=== PATIENT | female | born 1965 | race American Indian/Alaskan Native ===

== ENCOUNTER 2018-04-09 18:04 | Emergency (ER) | payer SELFPAY ==
[2018-04-09 19:00] VITALS: BP 128/88
== END 2018-04-09 21:10 | disposition left against medical advice (07) ==
LOC: ED 18:04
DX: H92.03 Otalgia, bilateral (principal); Z53.21 Procedure and treatment not carried out due to patient leaving prior to being seen by health care provider

== ENCOUNTER 2018-06-10 16:51 | Emergency (ER) | payer SELFPAY ==
[2018-06-10 18:18] VITALS: BP 132/72
== END 2018-06-10 21:29 | disposition left against medical advice (07) ==
LOC: ED 16:51
DX: K08.89 Other specified disorders of teeth and supporting structures (principal); J02.9 Acute pharyngitis, unspecified; H92.02 Otalgia, left ear; Z87.891 Personal history of nicotine dependence; Z88.0 Allergy status to penicillin; Z88.2 Allergy status to sulfonamides; Z88.8 Allergy status to other drugs, medicaments and biological substances; Z53.21 Procedure and treatment not carried out due to patient leaving prior to being seen by health care provider

== ENCOUNTER 2020-12-08 21:43 | Emergency (ER) | payer OTHER ==
[2020-12-08] MEDS ORDERED: PROMETHAZINE 25 MG TAB PO ONE (22:58)
[2020-12-08] MEDS ORDERED: HYDROcodone/ACETAMINOPHEN 5-325 MG TAB PO ONE (22:58)
[2020-12-08] MEDS ORDERED: FAMOTIDINE 20 MG TAB PO ONE (22:58)
[2020-12-08 23:13] LABS: Basophils % (Auto) 0.9 % (0.0-1.8); Eosinophils # (Auto) 0.1 K/mm3 (0.0-0.4); Eosinophils % (Auto) 2.3 % (0.0-4.3); Hematocrit 35.2 % (30.3-42.9); Hemoglobin 11.9 gm/dl (10.1-14.3); Lymphocytes # (Auto) 1.9 K/mm3 (1.2-5.4); Lymphocytes % (Auto) 44.4 % (13.4-35.0); Mean Corpuscular HGB Conc 34 % (30-34); Mean Corpuscular Volume 89 fl (79-97); Monocytes # (Auto) 0.3 K/mm3 (0.0-0.8); Monocytes % (Auto) 7.2 % (0.0-7.3); Platelet Count 195 K/mm3 (140-440); Red Blood Count 3.94 M/mm3 (3.65-5.03); Red Cell Distribution Width 14.9 % (13.2-15.2)
[2020-12-08 23:25] LABS: Albumin 4.1 g/dL (3.9-5); Blood Urea Nitrogen 13 mg/dL (7-17); Calcium 9.3 mg/dL (8.4-10.2); Hemolysis Index 7
[2020-12-08 23:27] LABS: Alanine Aminotransferase < 5 units/L (7-56); BUN/Creatinine Ratio 19
[2020-12-08 23:37] LABS: INR 0.95 (0.87-1.13)
[2020-12-08 23:38] LABS: Partial Thromboplastin Time 29.2 Sec. (24.2-36.6)
--- NOTE | 2020-12-09 00:25 | Emergency Department Report ---
ED Abdominal Pain HPI - General Chief Complaint: GI Bleed Stated Complaint: BACK PAIN PUI?: No Time Seen by Provider: 12/08/20 22:29 Source: patient Mode of arrival: Ambulatory Limitations: No Limitations - History of Present Illness Initial Comments: CC: "I have pain and rectal bleeding." HPI: THis is a 55 yo female with hx of GI Bleed, anal fissure who presents with abdominal pain and rectal bleeding for several months. Pain is located in epigastric region and radiates to back. She has bright red blood per rectum with wiping. She has brown stool. Pain is sharp, intermittent. She has had pain for several years. She has been followed by colorectal surgeon Dr. Jasmine and GI specialist Dr. Epps for GI issues and GI bleeding. She does not have a definitive diagnosis. She exclaims, "None of my doctors agree." MD Complaint: abdominal pain -: Gradual, month(s) (Worse over the last month), year(s) (Present for several years) Location: epigastric Radiation: back Severity: severe Severity scale (0 -10): 10 Quality: sharp Consistency: intermittent Improves With: nothing Worsens With: nothing Associated Symptoms: other (Rectal bleeding) - Related Data Previous Rx's Medication Instructions Recorded Last Taken Type Albuterol Mdi (or & Nicu Only) 2 puff IH QID PRN #1 inhalation 08/31/18 Unknown Rx [ProAir HFA Inhaler] Azithromycin [Zithromax Z-KRISTEN] 250 mg PO DAILY #6 tablet 08/31/18 Unknown Rx guaiFENesin/CODEINE [Robitussin AC] 5 ml PO Q6HR PRN #60 oral.liqd 08/31/18 Unknown Rx predniSONE [Deltasone] 20 mg PO QDAY #5 tab 08/31/18 Unknown Rx Allergies Allergy/AdvReac Type Severity Reaction Status Date / Time ondansetron Allergy Unknown Verified 08/31/18 14:44 [From Zofran (as hydrochloride)] pantoprazole [From Protonix] Allergy Unknown Verified 08/31/18 14:44 Penicillins Allergy Unknown Verified 08/31/18 14:44 Sulfa (Sulfonamide Allergy Unknown Verified 08/31/18 14:44 Antibiotics) ED Review of Systems ROS: Stated complaint: BACK PAIN Other details as noted in HPI Comment: All other systems reviewed and negative Constitutional: denies: fever, malaise Respiratory: denies: cough, shortness of breath Gastrointestinal: abdominal pain. denies: nausea, vomiting, diarrhea ED Past Medical Hx - Past Medical History Previous Medical History?: Yes Hx GERD: Yes Additional medical history: GI bleed, Anemia - Surgical History Additional Surgical History: tonsillectomy. hemmorhoids. fissure repair - Social History Smoking Status: Current Some Day Smoker Substance Use Type: None - Medications Home Medications: Home Medications Medication Instructions Recorded Confirmed Last Taken Type Albuterol Mdi (or & Nicu Only) 2 puff IH QID PRN #1 inhalation 08/31/18 Unknown Rx [ProAir HFA Inhaler] Azithromycin [Zithromax Z-KRISTEN] 250 mg PO DAILY #6 tablet 08/31/18 Unknown Rx guaiFENesin/CODEINE [Robitussin AC] 5 ml PO Q6HR PRN #60 oral.liqd 08/31/18 Unknown Rx predniSONE [Deltasone] 20 mg PO QDAY #5 tab 08/31/18 Unknown Rx ED Physical Exam - General Limitations: No Limitations General appearance: alert, in no apparent distress, other (Appears well appears comfortable) - Head Head exam: Present: atraumatic, normocephalic - Eye Eye exam: Present: normal appearance - ENT ENT exam: Present: mucous membranes moist - Neck Neck exam: Present: normal inspection, full ROM - Respiratory Respiratory exam: Present: normal lung sounds bilaterally. Absent: respiratory distress, wheezes, rales, rhonchi - Cardiovascular Cardiovascular Exam: Present: regular rate, normal rhythm, normal heart sounds. Absent: systolic murmur, diastolic murmur, rubs, gallop - GI/Abdominal GI/Abdominal exam: Present: soft, normal bowel sounds. Absent: distended, tenderness, guarding, rebound - Extremities Exam Extremities exam: Present: normal inspection - Neurological Exam Neurological exam: Present: alert, oriented X3 - Psychiatric Psychiatric exam: Present: normal affect, normal mood - Skin Skin exam: Present: warm, dry, intact, normal color. Absent: rash ED Course Vital Signs 12/08/20 12/08/20 22:10 23:09 Temperature 98.5 F Pulse Rate 75 Respiratory 14 16 Rate Blood Pressure 116/79 O2 Sat by Pulse 97 Oximetry ED Medical Decision Making - Lab Data Result diagrams: 12/08/20 22:50 12/08/20 22:50 Laboratory Results - last 24 hr 12/08/20 12/08/20 12/08/20 22:50 22:50 22:50 WBC 4.2 L RBC 3.94 Hgb 11.9 Hct 35.2 MCV 89 MCH 30 MCHC 34 RDW 14.9 Plt Count 195 Lymph % (Auto) 44.4 H [place] % (Auto) 7.2 Eos % (Auto) 2.3 Baso % (Auto) 0.9 Lymph # (Auto) 1.9 [place] # (Auto) 0.3 Eos # (Auto) 0.1 Baso # (Auto) 0.0 Seg Neutrophils % 45.2 Seg Neutrophils # 1.9 PT 12.5 INR 0.95 APTT 29.2 Sodium 137 Potassium 3.6 Chloride 102.7 Carbon Dioxide 22 Anion Gap 16 BUN 13 Creatinine 0.7 Estimated GFR > 60 BUN/Creatinine Ratio 19 Glucose 89 Calcium 9.3 Total Bilirubin 0.40 AST 15 ALT < 5 L Alkaline Phosphatase 43 Total Protein 6.7 Albumin 4.1 Albumin/Globulin Ratio 1.6 Lipase 24 - Radiology Data Radiology results: report reviewed CT ABDOMEN AND PELVIS WITHOUT CONTRAST INDICATION: abdominal pain. TECHNIQUE: Axial CT images were obtained through the abdomen and pelvis without IV contrast. All CT scans at this location are performed using CT dose reduction for [employer] by means of automated exposure control. COMPARISON: CT abdomen pelvis 11/24/2012 FINDINGS: LOWER CHEST: No significant abnormality. LIVER: No significant abnormality. GALLBLADDER: No significant abnormality. BILE DUCTS: No significant abnormality. PANCREAS: No significant abnormality. SPLEEN: No significant abnormality. ADRENALS: No significant abnormality. RIGHT KIDNEY and URETER: No significant abnormality. LEFT KIDNEY and URETER: No significant abnormality. STOMACH and SMALL BOWEL: No significant abnormality. COLON: No significant abnormality. APPENDIX: Normal. PERITONEUM: No free fluid. No free air. No fluid collection. LYMPH NODES: No significant adenopathy. AORTA and ARTERIES: No significant abnormality. IVC and VEINS: No significant abnormality. URINARY BLADDER: No significant abnormality. REPRODUCTIVE ORGANS: No significant abnormality. ADDITIONAL FINDINGS: None. SKELETAL SYSTEM: No significant abnormality. IMPRESSION: 1. No significant abnormality. - Medical Decision Making 1. Abdominal pain with history of GERD I suspect peptic ulcer disease versus IBS. No evidence of acute inflammatory obstructive process on CT 2. Rectal bleeding with history of anal fissure: No significant anemia. Have referred patient to her primary colorectal surgeon. I recommended stool softeners. I have prescribed Bentyl for pain GI discomfort. Also prescribed Colace as a stool softener. Critical care attestation.: If time is entered above; I have spent that time in minutes in the direct care of this critically ill patient, excluding procedure time. ED Disposition Clinical Impression: Abdominal pain, Rectal bleeding, History of anal fissures Disposition: TO HOME OR SELFCARE Is pt being admited?: No Does the pt Need Aspirin: No Condition: Stable Instructions: Rectal Bleeding, Abdominal Pain, Adult Referrals: HEMALATHA COPELAND MD [Staff Physician] - 3-5 Days
--- NOTE | 2020-12-09 01:13 | Cat Scan Report ---
CT ABDOMEN AND PELVIS WITHOUT CONTRAST INDICATION: abdominal pain. TECHNIQUE: Axial CT images were obtained through the abdomen and pelvis without IV contrast. All CT scans at [facility] location are performed using CT dose reduction for [place] by means of automated exposure control. COMPARISON: CT abdomen pelvis 11/24/2012 FINDINGS: LOWER CHEST: No significant abnormality. LIVER: No significant abnormality. GALLBLADDER: No significant abnormality. BILE DUCTS: No significant abnormality. PANCREAS: No significant abnormality. SPLEEN: No significant abnormality. ADRENALS: No significant abnormality. RIGHT KIDNEY and URETER: No significant abnormality. LEFT KIDNEY and URETER: No significant abnormality. STOMACH and SMALL BOWEL: No significant abnormality. COLON: No significant abnormality. APPENDIX: Normal. PERITONEUM: No free fluid. No free air. No fluid collection. LYMPH NODES: No significant adenopathy. AORTA and ARTERIES: No significant abnormality. IVC and VEINS: No significant abnormality. URINARY BLADDER: No significant abnormality. REPRODUCTIVE ORGANS: No significant abnormality. ADDITIONAL FINDINGS: None. SKELETAL SYSTEM: No significant abnormality. IMPRESSION: 1. No significant abnormality. Signer Name: Haroon Reynoso MD Signed: 12/09/2020 1:09 AM Workstation Name: [id number]
[2020-12-09] MEDS ORDERED: KETOROLAC 30 MG/1 ML INJ IM ONE (01:57)
[2020-12-09 02:03] VITALS: BP 129/92
== END 2020-12-09 02:02 | disposition home or self-care (01) ==
LOC: ED 21:43
DX: K62.5 Hemorrhage of anus and rectum (principal); K21.9 Gastro-esophageal reflux disease without esophagitis; F17.200 Nicotine dependence, unspecified, uncomplicated; Z79.899 Other long term (current) drug therapy; Z88.0 Allergy status to penicillin; Z88.2 Allergy status to sulfonamides; Z88.8 Allergy status to other drugs, medicaments and biological substances
CPT/HCPCS: 36415; 74176; 80053; 83690; 85025; 85610; 85730; J1885; Q0169

== ENCOUNTER 2020-12-09 04:50 | Emergency (ER) | payer SELFPAY ==
[2020-12-09] MEDS ORDERED: traMADol 50 MG TAB PO ONE (06:33)
--- NOTE | 2020-12-09 06:34 | Emergency Department Report ---
HPI - General Chief Complaint: Abdominal Pain Time Seen by Provider: 12/09/20 06:15 - HPI HPI: Room 29 The patient is a 55-year-old female present with chief complaint of abdominal pain. The patient states for the past 2 months she has had intermittent epigastric and periumbilical pain in addition to bloody mucus in her stool. Patient denies dysuria but admits to subjective fever. The patient was seen in this ED a few hours ago had a full work-up including a CAT scan and labs which were negative. Patient was discharged but checked back in to be seen again. Patient states her last EGD or colonoscopy occurred 7 years ago. ED Past Medical Hx - Past Medical History Hx GERD: Yes Additional medical history: GI bleed, Anemia - Surgical History Additional Surgical History: tonsillectomy. hemmorhoids. fissure repair - Family History Family history: no significant - Social History Smoking Status: Current Some Day Smoker (2 to 3 cigarettes daily) Substance Use Type: None (Denies illicit drug use) - Medications Home Medications: Home Medications Medication Instructions Recorded Confirmed Last Taken Type Albuterol Mdi (or & Nicu Only) 2 puff IH QID PRN #1 inhalation 08/31/18 Unknown Rx [ProAir HFA Inhaler] Azithromycin [Zithromax Z-KRISTEN] 250 mg PO DAILY #6 tablet 08/31/18 Unknown Rx guaiFENesin/CODEINE [Robitussin AC] 5 ml PO Q6HR PRN #60 oral.liqd 08/31/18 Unknown Rx predniSONE [Deltasone] 20 mg PO QDAY #5 tab 08/31/18 Unknown Rx Ciprofloxacin HCl 500 mg PO BID #14 tablet 12/09/20 Unknown Rx Famotidine [Pepcid] 20 mg PO BID #30 tablet 12/09/20 Unknown Rx HYDROcodone/APAP 5-325 [[place] 1 - 2 each PO Q6HR PRN #10 tablet 12/09/20 Unknown Rx 5/325] ED Review of Systems ROS: Stated complaint: BELLY PAIN Other details as noted in HPI Constitutional: fever (Subjective) Eyes: denies: eye pain ENT: denies: throat pain Respiratory: no symptoms reported Cardiovascular: denies: chest pain Endocrine: no symptoms reported Gastrointestinal: abdominal pain, hematochezia Genitourinary: denies: dysuria Musculoskeletal: denies: back pain Neurological: denies: headache Physical Exam - Physical Exam Vital Signs: Vital Signs 12/09/20 06:19 Respiratory 16 Rate Physical Exam: GENERAL: The patient is well-developed well-nourished female sitting in chair not appearing to be in acute distress HEENT: Normocephalic. Atraumatic. Extraocular motions are intact. Patient has moist mucous membranes. NECK: Supple. Trachea midline CHEST/LUNGS: Clear to auscultation. There is no respiratory distress noted. HEART/CARDIOVASCULAR: Regular. There is no tachycardia. There is no gallop rub or murmur. ABDOMEN: Abdomen is soft, with mild discomfort to palpation in the midepigastric, left upper quadrant and right upper quadrant. No rebound or guarding. Patient has normal bowel sounds. There is no abdominal distention. SKIN: There is no rash. There is no edema. There is no diaphoresis. NEURO: The patient is awake, alert, and oriented. The patient is cooperative. The patient has no focal neurologic deficits. The patient has normal speech MUSCULOSKELETAL: There is no evidence of acute injury. ED Course Vital Signs 12/09/20 06:19 Respiratory 16 Rate ED Medical Decision Making - Lab Data CBC, coags, CMP and lipase reviewed from previous visit earlier today. Within normal limits - Radiology Data Radiology results: report reviewed (CT abdomen pelvis performed on previous visit earlier today reviewed and no significant abnormality seen) - Differential Diagnosis Gastritis, peptic ulcer disease, Critical care attestation.: If time is entered above; I have spent that time in minutes in the direct care of this critically ill patient, excluding procedure time. ED Disposition Clinical Impression: Abdominal pain Disposition: DC-01 TO HOME OR SELFCARE Is pt being admited?: No Does the pt Need Aspirin: No Condition: Stable Instructions: Abdominal Pain (ED) Additional Instructions: Return to the emergency department should you develop worsening symptoms, inability to tolerate food or liquids, high fever or any other concerns Prescriptions: Ciprofloxacin HCl 500 mg PO BID #14 tablet HYDROcodone/APAP 5-325 [[place] 5/325] 1 - 2 each PO Q6HR PRN #10 tablet PRN Reason: Pain Famotidine [Pepcid] 20 mg PO BID #30 tablet Referrals: [facility] [Provider Group] - 3-5 Days HEMALATHA LAW MD [Staff Physician] - 3-5 Days (Dr. Law is a invasive cardiologist. Please follow-up with him for further evaluation) Time of Disposition: 06:39
== END 2020-12-09 07:21 | disposition home or self-care (01) ==
LOC: ED 04:50
DX: R10.13 Epigastric pain (principal); K21.9 Gastro-esophageal reflux disease without esophagitis; D64.9 Anemia, unspecified; F17.200 Nicotine dependence, unspecified, uncomplicated; Z79.899 Other long term (current) drug therapy; Z98.890 Other specified postprocedural states; Z88.2 Allergy status to sulfonamides; Z88.8 Allergy status to other drugs, medicaments and biological substances; Z88.0 Allergy status to penicillin
CPT/HCPCS: 99282

== ENCOUNTER 2020-12-15 21:30 | Emergency (ER) | payer SELFPAY ==
[2020-12-15 23:06] LABS: Basophils # (Auto) 0.1 K/mm3 (0.0-0.1); Basophils % (Auto) 1.2 % (0.0-1.8); Eosinophils # (Auto) 0.1 K/mm3 (0.0-0.4); Eosinophils % (Auto) 3.2 % (0.0-4.3); Hematocrit 33.2 % (30.3-42.9); Hemoglobin 11.1 gm/dl (10.1-14.3); Lymphocytes # (Auto) 2.3 K/mm3 (1.2-5.4); Lymphocytes % (Auto) 50.9 % (13.4-35.0); Mean Corpuscular HGB Conc 34 % (30-34); Mean Corpuscular Volume 89 fl (79-97); Monocytes # (Auto) 0.4 K/mm3 (0.0-0.8); Monocytes % (Auto) 8.1 % (0.0-7.3); Platelet Count 177 K/mm3 (140-440); Red Blood Count 3.73 M/mm3 (3.65-5.03)
[2020-12-15 23:18] LABS: Blood Urea Nitrogen 11 mg/dL (7-17); Calcium 8.7 mg/dL (8.4-10.2); Hemolysis Index 164
[2020-12-15 23:31] LABS: BUN/Creatinine Ratio 16
[2020-12-16] MEDS ORDERED: HYDROcodone/ACETAMINOPHEN 5-325 MG TAB PO ONE (02:32)
--- NOTE | 2020-12-16 02:44 | Emergency Department Report ---
HPI - General Chief Complaint: Abdominal Pain Time Seen by Provider: 12/16/20 02:22 - HPI HPI: This is a 55-year-old female who presents to the emergency department with complaint of generalized abdominal pain, constantly feeling cold, and swelling in the legs and hands. Overall she says that this has been going on since she was last here 1 week ago. It is associated with some nausea and vomiting but she denies any diarrhea or constipation. Patient does say that she has some dark stool with concern for rectal bleeding. She is a tobacco smoker but denies any illicit drug use. She has not taken anything for symptoms prior to presentation today. The patient says that she has some chronic GI issues for which she has seen multiple gastroenterologists in the past. Previous records show that she is followed by Dr. Jasmine, a colorectal specialist, as well as Dr. Dempsey, a interior design consultant, but despite multiple visits/evaluations there is no definitive diagnosis as to what is causing her recurrent issues. ED Past Medical Hx - Past Medical History Previous Medical History?: Yes Hx GERD: Yes Additional medical history: GI bleed, Anemia - Surgical History Past Surgical History?: Yes Additional Surgical History: tonsillectomy. hemmorhoids. fissure repair - Social History Smoking Status: Current Every Day Smoker Substance Use Type: None - Medications Home Medications: Home Medications Medication Instructions Recorded Confirmed Last Taken Type Albuterol Mdi (or & Nicu Only) 2 puff IH QID PRN #1 inhalation 08/31/18 Unknown Rx [ProAir HFA Inhaler] Azithromycin [Zithromax Z-KRISTEN] 250 mg PO DAILY #6 tablet 08/31/18 Unknown Rx guaiFENesin/CODEINE [Robitussin AC] 5 ml PO Q6HR PRN #60 oral.liqd 08/31/18 Unknown Rx predniSONE [Deltasone] 20 mg PO QDAY #5 tab 08/31/18 Unknown Rx Ciprofloxacin HCl 500 mg PO BID #14 tablet 12/09/20 Unknown Rx Famotidine [Pepcid] 20 mg PO BID #30 tablet 12/09/20 Unknown Rx Docusate Sodium [Colace] 100 mg PO BID PRN #20 capsule 12/16/20 Unknown Rx HYDROcodone/APAP 5-325 [Gilby 1 each PO Q6HR PRN #10 tablet 12/16/20 Unknown Rx 5-325 mg TAB] ED Review of Systems ROS: Stated complaint: ABD PAIN/SWELLING IN LEGS Other details as noted in HPI Comment: All other systems reviewed and negative Constitutional: denies: chills, fever Eyes: denies: eye pain, vision change ENT: denies: ear pain, throat pain Respiratory: denies: cough, shortness of breath Cardiovascular: denies: chest pain, palpitations Endocrine: intolerance to cold Gastrointestinal: abdominal pain, nausea, vomiting Genitourinary: denies: dysuria, discharge Musculoskeletal: joint swelling. denies: back pain Skin: denies: rash, lesions Neurological: denies: weakness, numbness Physical Exam - Physical Exam Vital Signs: Vital Signs 12/15/20 21:41 Temperature 98.1 F Physical Exam: GENERAL: The patient is well-developed well-nourished. HENT: Normocephalic. Atraumatic. Patient has moist mucous membranes. EYES: Extraocular motions are intact. NECK: Supple. Trachea is midline. CHEST/LUNGS: Clear to auscultation. There is no respiratory distress noted. HEART/CARDIOVASCULAR: Regular. There is no tachycardia. There is no murmur. ABDOMEN: Abdomen is soft. Generalized abdominal tenderness to palpation. No guarding. Patient has normal bowel sounds. There is no abdominal distention. SKIN: Skin is warm and dry. Mild nonpitting swelling of the bilateral lower extremities. NEURO: The patient is awake, alert, and oriented. The patient is cooperative. The patient has no focal neurologic deficits. Normal speech. MUSCULOSKELETAL: There is no tenderness or deformity. There is no limitation range of motion. RECTAL: No hemorrhoids seen. No gross blood seen. There is not much stool obtained for guaiac testing but what was obtained is negative. ED Course Vital Signs 12/15/20 21:41 Temperature 98.1 F ED Medical Decision Making - Lab Data Result diagrams: 12/15/20 22:57 12/15/20 22:57 Lab Results 12/15/20 12/15/20 12/16/20 Range/Units 22:57 22:57 00:00 WBC 4.5 (4.5-11.0) K/mm3 RBC 3.73 (3.65-5.03) M/mm3 Hgb 11.1 (10.1-14.3) gm/dl Hct 33.2 (30.3-42.9) % MCV 89 (79-97) fl MCH 30 (28-32) pg MCHC 34 (30-34) % RDW 15.0 (13.2-15.2) % Plt Count 177 (140-440) K/mm3 Lymph % (Auto) 50.9 H (13.4-35.0) % [place] % (Auto) 8.1 H (0.0-7.3) % Eos % (Auto) 3.2 (0.0-4.3) % Baso % (Auto) 1.2 (0.0-1.8) % Lymph # (Auto) 2.3 (1.2-5.4) K/mm3 [place] # (Auto) 0.4 (0.0-0.8) K/mm3 Eos # (Auto) 0.1 (0.0-0.4) K/mm3 Baso # (Auto) 0.1 (0.0-0.1) K/mm3 Seg Neutrophils % 36.6 L (40.0-70.0) % Seg Neutrophils # 1.6 L (1.8-7.7) K/mm3 Sodium 138 (137-145) mmol/L Potassium 4.7 (3.6-5.0) mmol/L Chloride 104.7 (98-107) mmol/L Carbon Dioxide 24 (22-30) mmol/L Anion Gap 14 mmol/L BUN 11 (7-17) mg/dL Creatinine 0.7 (0.6-1.2) mg/dL Estimated GFR > 60 ml/min BUN/Creatinine Ratio 16 % Glucose 85 (65-100) mg/dL Calcium 8.7 (8.4-10.2) mg/dL Total Bilirubin (0.1-1.2) mg/dL Direct Bilirubin (0-0.2) mg/dL Indirect Bilirubin mg/dL AST (5-40) units/L ALT (7-56) units/L Alkaline Phosphatase (35-129) units/L NT-Pro-B Natriuret Pep 14.91 (0-900) pg/mL Total Protein (6.3-8.2) g/dL Albumin (3.9-5) g/dL Albumin/Globulin Ratio % Lipase (13-60) units/L TSH (0.270-4.200) mlU/mL Urine Color (Yellow) Urine Turbidity (Clear) Urine pH (5.0-7.0) Ur Specific Pilot (1.003-1.030) Urine Protein (Negative) mg/dL Urine Glucose (UA) (Negative) mg/dL Urine Ketones (Negative) mg/dL Urine Blood (Negative) Urine Nitrite (Negative) Urine Bilirubin (Negative) Urine Urobilinogen (<2.0) mg/dL Ur Leukocyte Esterase (Negative) Urine WBC (Auto) (0.0-6.0) /HPF Urine RBC (Auto) (0.0-6.0) /HPF U Epithel Cells (Auto) (0-13.0) /HPF Urine Mucus /HPF 12/16/20 12/16/20 12/16/20 Range/Units 00:00 00:00 Unknown WBC (4.5-11.0) K/mm3 RBC (3.65-5.03) M/mm3 Hgb (10.1-14.3) gm/dl Hct (30.3-42.9) % MCV (79-97) fl MCH (28-32) pg MCHC (30-34) % RDW (13.2-15.2) % Plt Count (140-440) K/mm3 Lymph % (Auto) (13.4-35.0) % [place] % (Auto) (0.0-7.3) % Eos % (Auto) (0.0-4.3) % Baso % (Auto) (0.0-1.8) % Lymph # (Auto) (1.2-5.4) K/mm3 [place] # (Auto) (0.0-0.8) K/mm3 Eos # (Auto) (0.0-0.4) K/mm3 Baso # (Auto) (0.0-0.1) K/mm3 Seg Neutrophils % (40.0-70.0) % Seg Neutrophils # (1.8-7.7) K/mm3 Sodium (137-145) mmol/L Potassium (3.6-5.0) mmol/L Chloride (98-107) mmol/L Carbon Dioxide (22-30) mmol/L Anion Gap mmol/L BUN (7-17) mg/dL Creatinine (0.6-1.2) mg/dL Estimated GFR ml/min BUN/Creatinine Ratio % Glucose (65-100) mg/dL Calcium (8.4-10.2) mg/dL Total Bilirubin 0.20 (0.1-1.2) mg/dL Direct Bilirubin < 0.2 (0-0.2) mg/dL Indirect Bilirubin 0.0 mg/dL AST 20 (5-40) units/L ALT < 5 L (7-56) units/L Alkaline Phosphatase 47 (35-129) units/L NT-Pro-B Natriuret Pep (0-900) pg/mL Total Protein 6.1 L (6.3-8.2) g/dL Albumin 3.8 L (3.9-5) g/dL Albumin/Globulin Ratio 1.7 % Lipase 26 (13-60) units/L TSH 1.090 (0.270-4.200) mlU/mL Urine Color Yellow (Yellow) Urine Turbidity Clear (Clear) Urine pH 6.0 (5.0-7.0) Ur Specific Pilot 1.009 (1.003-1.030) Urine Protein <15 mg/dl (Negative) mg/dL Urine Glucose (UA) Neg (Negative) mg/dL Urine Ketones Neg (Negative) mg/dL Urine Blood Neg (Negative) Urine Nitrite Neg (Negative) Urine Bilirubin Neg (Negative) Urine Urobilinogen < 2.0 (<2.0) mg/dL Ur Leukocyte Esterase Neg (Negative) Urine WBC (Auto) 1.0 (0.0-6.0) /HPF Urine RBC (Auto) < 1.0 (0.0-6.0) /HPF U Epithel Cells (Auto) 7.0 (0-13.0) /HPF Urine Mucus Few /HPF - Radiology Data Radiology results: image reviewed interpreted by me: Abdominal x-ray shows non-specific, non-obstructive bowel gas and increased stool volume. - Medical Decision Making This patient presents with the complaints of abdominal pain, cold intolerance and swelling of the legs and hands. She also c/o b/l leg pain, rectal bleeding with mucous in the stool and tasting blood. On examination, the patient has some reproducible TTP of the abdoment. However, the abdomen is soft, non-distended and non-toxic in appearance. No peritoneal signs. Abdominal x-ray shows non-specific, non obstructive bowel gas and increased stool volume. The patient had a CT scan of the abdomen and pelvis on 12/09, about 1 week ago, that showed no acute process in the abdomen or pelvis. The patient says that her symptoms have continued since that last ED visit. With this recent CT scan and an unremarkable abdominal x-ray, as well as he abdominal examination, I did not feel that repeat CT imaging of the abd/pelvis was warrented at this time. Labs have been unremarkable including CBC, CMP, Lipase, BNP and TSH level. A rectal examination was done with nurse Mera at bedside to light bulb assembler and assist. No external hemorrhoid or lesion was seen. No gross blood. There was al most no stool obtained for guaiac testing, but what was obtained was negative. The patient initially refused IV access so I treated her pain with oral analgesia inclusing a norco and a dose of Bentyl. She later tells me that Bentyl and "all GI meds" are an allergy, but the patient was monitored and re-evaluated multiple times and she did not appear to have any reaction to that medication. Due to the complaint of b/l leg pain and swelling, the patient had a b/l LE venous doppler ultrasound. The initial US tech report was that no DVT found. The patient's vital signs have been reassuring throughout her ED course thus far. This case will be signed out to my colleague, Dr Gamble, to follow up with the urinalysis and Doppler results. If there are no concerning results, or any changes in the patient's status, she will be dischaged home to follow up with a PCP and GI. Critical Care Time: No Critical care attestation.: If time is entered above; I have spent that time in minutes in the direct care of this critically ill patient, excluding procedure time. ED Disposition Clinical Impression: Abdominal pain, Rectal bleeding, Lower extremity edema, Increased stool volume Disposition: DC-01 TO HOME OR SELFCARE Is pt being admited?: No Condition: Stable Instructions: Rectal Bleeding, Abdominal Pain, Adult, Peripheral Edema, Abdominal Pain (ED) Additional Instructions: Please follow-up with a primary care physician in the next few days and I am giving you multiple referrals for local primary care physicians and a clinic. I am also giving you a referral for [facility] to follow-up regarding your abdominal pains and recent rectal bleeding. You have been prescribed a medication that is sedating and therefore should not be taken prior to driving, working, and responsible for children and in no way should be mixed with alcohol of any quantity. Return to the emergency department with any worsening of your symptoms, new or concerning symptoms not addressed during this current emergency department visit, or with any acute distress. Prescriptions: Docusate Sodium [Colace] 100 mg PO BID PRN #20 capsule PRN Reason: Constipation HYDROcodone/APAP 5-325 [Gilby 5-325 mg TAB] 1 each PO Q6HR PRN #10 tablet PRN Reason: Pain Referrals: CATRINA TALLEY MD [Staff Physician] - 3-5 Days [facility] [Provider Group] - 3-5 Days [facility] [Provider Group] - 3-5 Days
--- NOTE | 2020-12-16 03:24 | XRay Report ---
ABDOMEN 2 VIEWS INDICATION / CLINICAL INFORMATION: Abd pain. COMPARISON: None available. FINDINGS: TUBES / LINES: None. BOWEL GAS PATTERN: No significant abnormality. Moderate colonic stool burden. FREE AIR / EXTRALUMINAL GAS: None seen. ADDITIONAL FINDINGS: No significant additional findings. CHEST: Visualized chest shows no significant abnormality. IMPRESSION: Moderate to large colonic stool burden, consistent with constipation. No acute radiographic abnormali ty. Signer Name: Lance Morse MD Signed: 12/16/2020 3:19 AM Workstation Name: [id number]
[2020-12-16] MEDS ORDERED: DICYCLOMINE 20 MG TAB PO ONE (04:20)
[2020-12-16 05:16] LABS: Albumin 3.8 g/dL (3.9-5)
[2020-12-16 05:25] LABS: Alanine Aminotransferase < 5 units/L (7-56); Bilirubin,Direct < 0.2 mg/dL (0-0.2)
--- NOTE | 2020-12-16 06:38 | Vascular Lab Report ---
DUPLEX DOPPLER LOWER EXTREMITY VEINS, BILATERAL INDICATION / CLINICAL INFORMATION: b/l LE swelling and pain. TECHNIQUE: Duplex doppler imaging was performed through the veins of both lower extremities using venous chava flavio and other maneuvers. COMPARISON: None available. FINDINGS: RIGHT COMMON FEMORAL VEIN: Negative. RIGHT FEMORAL VEIN: Negative. RIGHT POPLITEAL VEIN: Negative. RIGHT CALF VEINS: Negative. LEFT COMMON FEMORAL VEIN: Negative. LEFT FEMORAL VEIN: Negative. LEFT POPLITEAL VEIN: Negative. LEFT CALF VEINS: Negative. ADDITIONAL FINDINGS: None. IMPRESSION: 1. No sonographic evidence for DVT in either lower extremity. Signer Name: Lance Morse MD Signed: 12/16/2020 6:34 AM Workstation Name: [id number]
[2020-12-16 07:36] LABS: Bilirubin,Urine NEG (Negative); Blood,Urine NEG (Negative); Color,Urine Yellow (Yellow); Mucus,Urine FEW /HPF; Protein,Urine <15 mg/dL mg/dL (Negative); RBC,Urine < 1.0 /HPF (0.0-6.0); Urobilinogen,Urine < 2.0 mg/dL (<2.0)
[2020-12-16 08:15] VITALS: BP 104/59
== END 2020-12-16 08:15 | disposition home or self-care (01) ==
LOC: ED 21:30
DX: R10.84 Generalized abdominal pain (principal); R60.0 Localized edema; R19.5 Other fecal abnormalities; K62.5 Hemorrhage of anus and rectum; K21.9 Gastro-esophageal reflux disease without esophagitis; D64.9 Anemia, unspecified; F17.200 Nicotine dependence, unspecified, uncomplicated; Z79.899 Other long term (current) drug therapy; Z88.0 Allergy status to penicillin; Z88.8 Allergy status to other drugs, medicaments and biological substances; Z90.49 Acquired absence of other specified parts of digestive tract; Z98.890 Other specified postprocedural states
CPT/HCPCS: 36415; 74019; 80048; 80076; 81001; 83690; 83880; 84443; 85025; 93970

== ENCOUNTER 2021-01-03 16:03 | Emergency (ER) | payer SELFPAY ==
--- NOTE | 2021-01-03 16:18 | Event Note ---
ED Screening Note ED Screening Note: SEE EMR PT HERE OFTEN CO R JAW PAIN ANGRY AND YELLING AT RN AND MYSELF IN TRIAGE HYPERVERBAL WANTS ONLY TO SEE DOCTOR This initial assessment/diagnostic orders/clinical plan/treatment(s) is/are subject to change based on patients health status, clinical progression and re- assessment by fellow clinical providers in the ED. Further treatment and workup at subsequent clinical providers discretion. Patient/guardian urged not to elope from the ED as their condition may be serious if not clinically assessed and managed. Initial orders include: MD TO SEE
--- NOTE | 2021-01-03 21:00 | Emergency Department Report ---
ED ENT HPI - General Chief complaint: Dental/Oral Stated complaint: HEAD/FACE PAIN Time Seen by Provider: 01/03/21 16:12 Source: patient Mode of arrival: Ambulatory Limitations: No Limitations - History of Present Illness Initial comments: 55-year-old female presents to ED with 3-day history of right-sided mouth pain. Patient reports pain in the inside of her mouth in the right maxillary area. Patient reports she wears dentures, but states they normally fit fine. Patient states "my bite is off." Patient states the pain is radiating to her right ear. She denies any recent trauma. MD complaint: other (mouth pain) -: days(s) (3) Location: other (mouth) Severity: mild Consistency: intermittent Improves with: other (removal of dentures) Worsens with: other (wearing dentures) Associated Symptoms: denies: fever - Related Data Previous Rx's Medication Instructions Recorded Last Taken Type Albuterol Mdi (or & Nicu Only) 2 puff IH QID PRN #1 inhalation 08/31/18 Unknown Rx [ProAir HFA Inhaler] Azithromycin [Zithromax Z-KRISTEN] 250 mg PO DAILY #6 tablet 08/31/18 Unknown Rx guaiFENesin/CODEINE [Robitussin AC] 5 ml PO Q6HR PRN #60 oral.liqd 08/31/18 Unknown Rx predniSONE [Deltasone] 20 mg PO QDAY #5 tab 08/31/18 Unknown Rx Ciprofloxacin HCl 500 mg PO BID #14 tablet 12/09/20 Unknown Rx Famotidine [Pepcid] 20 mg PO BID #30 tablet 12/09/20 Unknown Rx Docusate Sodium [Colace] 100 mg PO BID PRN #20 capsule 12/16/20 Unknown Rx HYDROcodone/APAP 5-325 [[place] 1 each PO Q6HR PRN #10 tablet 12/16/20 Unknown Rx 5-325 mg TAB] Chlorhexidine Mouthwash [Peridex] 118 ml MM BID 7 Days #1 bottle 01/03/21 Unknown Rx Allergies Allergy/AdvReac Type Severity Reaction Status Date / Time ondansetron Allergy Unknown Verified 08/31/18 14:44 [From Zofran (as hydrochloride)] pantoprazole [From Protonix] Allergy Unknown Verified 08/31/18 14:44 Penicillins Allergy Unknown Verified 08/31/18 14:44 promethazine [From Phenergan] Allergy Unknown Verified 12/15/20 21:38 Sulfa (Sulfonamide Allergy Unknown Verified 08/31/18 14:44 Antibiotics) ED Dental HPI - General Chief complaint: Dental/Oral Stated complaint: HEAD/FACE PAIN Time Seen by Provider: 01/03/21 16:12 Source: patient Mode of arrival: Ambulatory Limitations: No Limitations - Related Data Previous Rx's Medication Instructions Recorded Last Taken Type Albuterol Mdi (or & Nicu Only) 2 puff IH QID PRN #1 inhalation 08/31/18 Unknown Rx [ProAir HFA Inhaler] Azithromycin [Zithromax Z-KRISTEN] 250 mg PO DAILY #6 tablet 08/31/18 Unknown Rx guaiFENesin/CODEINE [Robitussin AC] 5 ml PO Q6HR PRN #60 oral.liqd 08/31/18 Un known Rx predniSONE [Deltasone] 20 mg PO QDAY #5 tab 08/31/18 Unknown Rx Ciprofloxacin HCl 500 mg PO BID #14 tablet 12/09/20 Unknown Rx Famotidine [Pepcid] 20 mg PO BID #30 tablet 12/09/20 Unknown Rx Docusate Sodium [Colace] 100 mg PO BID PRN #20 capsule 12/16/20 Unknown Rx HYDROcodone/APAP 5-325 [[place] 1 each PO Q6HR PRN #10 tablet 12/16/20 Unknown Rx 5-325 mg TAB] Chlorhexidine Mouthwash [Peridex] 118 ml MM BID 7 Days #1 bottle 01/03/21 Unknown Rx Allergies Allergy/AdvReac Type Severity Reaction Status Date / Time ondansetron Allergy Unknown Verified 08/31/18 14:44 [From Zofran (as hydrochloride)] pantoprazole [From Protonix] Allergy Unknown Verified 08/31/18 14:44 Penicillins Allergy Unknown Verified 08/31/18 14:44 promethazine [From Phenergan] Allergy Unknown Verified 12/15/20 21:38 Sulfa (Sulfonamide Allergy Unknown Verified 08/31/18 14:44 Antibiotics) ED Review of Systems ROS: Stated complaint: HEAD/FACE PAIN Other details as noted in HPI Comment: All other systems reviewed and negative Constitutional: denies: fever ENT: ear pain, other (reports mouth pain) ED Past Medical Hx - Past Medical History Previous Medical History?: Yes Hx GERD: Yes Additional medical history: GI bleed, Anemia - Surgical History Past Surgical History?: Yes Additional Surgical History: tonsillectomy. hemmorhoids. fissure repair - Social History Smoking Status: Unknown if ever smoked - Medications Home Medications: Home Medications Medication Instructions Recorded Confirmed Last Taken Type Albuterol Mdi (or & Nicu Only) 2 puff IH QID PRN #1 inhalation 08/31/18 Unknown Rx [ProAir HFA Inhaler] Azithromycin [Zithromax Z-KRISTEN] 250 mg PO DAILY #6 tablet 08/31/18 Unknown Rx guaiFENesin/CODEINE [Robitussin AC] 5 ml PO Q6HR PRN #60 oral.liqd 08/31/18 Unknown Rx predniSONE [Deltasone] 20 mg PO QDAY #5 tab 08/31/18 Unknown Rx Ciprofloxacin HCl 500 mg PO BID #14 tablet 12/09/20 Unknown Rx Famotidine [Pepcid] 20 mg PO BID #30 tablet 12/09/20 Unknown Rx Docusate Sodium [Colace] 100 mg PO BID PRN #20 capsule 12/16/20 Unknown Rx HYDROcodone/APAP 5-325 [[place] 1 each PO Q6HR PRN #10 tablet 12/16/20 Unknown Rx 5-325 mg TAB] Chlorhexidine Mouthwash [Peridex] 118 ml MM BID 7 Days #1 bottle 01/03/21 Unknown Rx ED Physical Exam - General Limitations: No Limitations General appearance: alert, in no apparent distress - Head Head exam: Present: atraumatic, normocephalic - Eye Eye exam: Present: normal appearance, EOMI - ENT ENT exam: Present: mucous membranes moist, TM's normal bilaterally, normal external ear exam, other (no facial swelling on exam; pt has small mucosal ulceration in the area of the right maxillary molars; no purulent discharge present; no trismus present; edentulous) - Neck Neck exam: Present: normal inspection, other (no swelling present) - Respiratory Respiratory exam: Absent: respiratory distress - Cardiovascular Cardiovascular Exam: Present: regular rate, normal rhythm - Extremities Exam Extremities exam: Present: normal inspection - Neurological Exam Neurological exam: Present: alert, oriented X3 - Psychiatric Psychiatric exam: Present: agitated - Skin Skin exam: Present: warm, dry, intact, normal color ED Course Vital Signs 01/03/21 16:14 Temperature 98.8 F Pulse Rate 70 Respiratory 15 Rate Blood Pressure 120/50 O2 Sat by Pulse 99 Oximetry ED Medical Decision Making - Medical Decision Making 55-year-old female presents to ED with mouth pain. Patient has small ulcerations evident on the right maxillary gingival area. No swelling or purulent discharge present. Patient is edentulous. Outpatient follow-up with a dentist is advised. Patient will be given prescription for Peridex. Return precautions given. Critical care attestation.: If time is entered above; I have spent that time in minutes in the direct care of this critically ill patient, excluding procedure time. ED Disposition Clinical Impression: Gingival ulcer Disposition: DC- TO HOME OR SELFCARE Is pt being admited?: No Condition: Stable Instructions: Preventive Dental Care, Adult Prescriptions: Chlorhexidine Mouthwash [Peridex] 118 ml MM BID 7 Days #1 bottle Referrals: PRIMARY CARE, [Primary Care Provider] - 3-5 Days [facility] [Outside] - 3-5 Days Time of Disposition: 21:21
[2021-01-03 21:30] VITALS: BP 120/50
== END 2021-01-03 21:36 | disposition home or self-care (01) ==
LOC: ED 16:03
DX: K06.8 Other specified disorders of gingiva and edentulous alveolar ridge (principal); K21.9 Gastro-esophageal reflux disease without esophagitis; Z79.899 Other long term (current) drug therapy; Z88.0 Allergy status to penicillin; Z88.8 Allergy status to other drugs, medicaments and biological substances
CPT/HCPCS: 99281

== ENCOUNTER 2021-02-16 15:56 | Emergency (ER) | payer SELFPAY ==
--- NOTE | 2021-02-16 16:29 | Emergency Department Report ---
Blank Doc - Documentation Documentation: 55-year-old female that presents with right lower abdominal pain, nausea vomit ing, and vaginal bleeding. Patient is postmenopausal. 1- This initial assessment/diagnostic orders/clinical plan/ treatment(s) is/are subject to change based on pt's health status, clinical progression and re- assessment by fellow clinical providers in the ED. Further treatment and workup at subsequent clinical provers discretion. Patient/guardians urged not to elope from ED as their condition may be serious if not clinically assessed and managed. 2-labs 3-UA
[2021-02-16 19:14] LABS: Basophils % (Auto) 0.5 % (0.0-1.8); Eosinophils # (Auto) 0.1 K/mm3 (0.0-0.4); Eosinophils % (Auto) 2.9 % (0.0-4.3); Hematocrit 37.2 % (30.3-42.9); Hemoglobin 12.7 gm/dl (10.1-14.3); Lymphocytes # (Auto) 1.8 K/mm3 (1.2-5.4); Lymphocytes % (Auto) 46.2 % (13.4-35.0); Mean Corpuscular HGB Conc 34 % (30-34); Mean Corpuscular Volume 89 fl (79-97); Monocytes # (Auto) 0.3 K/mm3 (0.0-0.8); Monocytes % (Auto) 6.8 % (0.0-7.3); Platelet Count 206 K/mm3 (140-440); Red Cell Distribution Width 15.6 % (13.2-15.2)
[2021-02-16 19:31] LABS: Albumin 4.1 g/dL (3.9-5); Blood Urea Nitrogen 6 mg/dL (7-17); Hemolysis Index 6
[2021-02-16 19:38] LABS: Alanine Aminotransferase < 5 units/L (7-56); BUN/Creatinine Ratio 9
[2021-02-16] MEDS ORDERED: HYDROmorphone 1 MG/1 ML INJ IV ONE ×2 (20:05→21:23)
[2021-02-16] MEDS ORDERED: LACTATED RINGERS 1,000 ML IV ONE (20:05)
--- NOTE | 2021-02-16 20:08 | Emergency Department Report ---
ED General Adult HPI - General Chief complaint: Vaginal Bleeding Stated complaint: ABD PAIN WITH BLEEDING PUI?: No Time Seen by Provider: 02/16/21 16:28 Source: patient, RN notes reviewed, old records reviewed Mode of arrival: Ambulatory Limitations: No Limitations - History of Present Illness Initial comments: The patient was evaluated in the emergency department for symptoms described in the history of present illness. He/she was evaluated in the context of the global COVID-19 pandemic, which necessitated consideration that the patient might be at risk for infection with the virus that causes COVID-19. Institutional protocols and algorithms that pertain to the evaluation of patients at risk for COVID-19 are in a state of rapid change based on information released by regulatory bodies including the CDC and federal and state organizations. These policies and algorithms were followed during the patient's care in the emergency department. Please note that these policies, procedures and recommendations changed on a rapid basis. During the history and physical examination, I am chaperoned by nurse GUZMAN QUISPE Patient is a 55-year-old female. She is not known to myself previously. Has a history of GERD, GI bleed, anemia, hemorrhoids, anal fissure. Patient presents to the ER today with a complaint of suprapubic and bilateral lower quadrant abdominal pain, most prominent on the right side, associated with vaginal bleeding. The patient believes she is postmenopausal. She does not have a private rope tier. The patient reports that she was seen at [facility] last week for abdominal pain, and rectal bleeding. She reports that she may have been diagnosed with a gynecologic lesion or mass. Of note, the patient was seen at this hospital for abdominal pain, and report of rectal bleeding in November and was referred to outpatient colorectal, and she reports that she did follow-up with her colorectal surgeon this week. Denies headache, neck pain, chest pain. No vomiting. No dysuria. Reports no sexual partners for many years, denies a history of gonorrhea, chlamydia, and STI. She reports that she has been having vaginal bleeding since this morning, she believes she has gone through "a lot of tampons." She describes dark blood, and black blood coming from her vagina. On review systems, endorses chronic brown stool with rectal bleeding. -: Gradual, hour(s) Location: abdomen Radiation: non-radiation Quality: aching Consistency: constant Improves with: rest Worsens with: movement - Related Data Previous Rx's Medication Instructions Recorded Last Taken Type Albuterol Mdi (or & Nicu Only) 2 puff IH QID PRN #1 inhalation 08/31/18 Unknown Rx [ProAir HFA Inhaler] predniSONE [Deltasone] 20 mg PO QDAY #5 tab 08/31/18 Unknown Rx Famotidine [Pepcid] 20 mg PO BID #30 tablet 12/09/20 Unknown Rx Docusate Sodium [Colace] 100 mg PO BID PRN #20 capsule 12/16/20 Unknown Rx Chlorhexidine Mouthwash [Peridex] 118 ml MM BID 7 Days #1 bottle 01/03/21 Unknown Rx Acetaminophen [Non-Aspirin Extra 500 mg PO Q6HR PRN #30 tablet 02/16/21 Unknown Rx Strength] Ibuprofen [Motrin] 600 mg PO Q8H PRN #30 tablet 02/16/21 Unknown Rx Morphine Sulfate [Morphine Sulfate 7.5 mg PO Q6HR PRN #10 tablet 02/16/21 Unknown Rx IR] Allergies Allergy/AdvReac Type Severity Reaction Status Date / Time ondansetron Allergy Unknown Verified 08/31/18 14:44 [From Zofran (as hydrochloride)] pantoprazole [From Protonix] Allergy Unknown Verified 08/31/18 14:44 Penicillins Allergy Unknown Verified 08/31/18 14:44 promethazine [From Phenergan] Allergy Unknown Verified 12/15/20 21:38 Sulfa (Sulfonamide Allergy Unknown Verified 08/31/18 14:44 Antibiotics) ED Review of Systems ROS: Stated complaint: ABD PAIN WITH BLEEDING Other details as noted in HPI Constitutional: denies: fever Eyes: denies: eye discharge ENT: denies: epistaxis Respiratory: denies: cough Cardiovascular: denies: chest pain Gastrointestinal: abdominal pain, other (Brown stool with red blood). denies: vomiting, hematemesis, melena Genitourinary: abnormal menses, other (Lower abdominal pain) Musculoskeletal: arthralgia (Chronic arthralgias) Neurological: denies: weakness (No focal weakness) Psychiatric: anxiety Hematological/Lymphatic: other (Does not take systemic anticoagulation). denies: easy bleeding ED Past Medical Hx - Past Medical History Previous Medical History?: Yes Hx GERD: Yes Additional medical history: GI bleed, Anemia - Surgical History Past Surgical History?: Yes Additional Surgical History: tonsillectomy. hemmorhoids. fissure repair - Social History Smoking Status: Current Every Day Smoker Substance Use Type: None - Medications Home Medications: Home Medications Medication Instructions Recorded Confirmed Last Taken Type Albuterol Mdi (or & Nicu Only) 2 puff IH QID PRN #1 inhalation 08/31/18 Unknown Rx [ProAir HFA Inhaler] predniSONE [Deltasone] 20 mg PO QDAY #5 tab 08/31/18 Unknown Rx Famotidine [Pepcid] 20 mg PO BID #30 tablet 12/09/20 Unknown Rx Docusate Sodium [Colace] 100 mg PO BID PRN #20 capsule 12/16/20 Unknown Rx Chlorhexidine Mouthwash [Peridex] 118 ml MM BID 7 Days #1 bottle 01/03/21 Unknown Rx Acetaminophen [Non-Aspirin Extra 500 mg PO Q6HR PRN #30 tablet 02/16/21 Unknown Rx Strength] Ibuprofen [Motrin] 600 mg PO Q8H PRN #30 tablet 02/16/21 Unknown Rx Morphine Sulfate [Morphine Sulfate 7.5 mg PO Q6HR PRN #10 tablet 02/16/21 Unknown Rx IR] ED Physical Exam - General Limitations: No Limitations General appearance: alert, anxious, in distress - Head Head exam: Present: atraumatic, normocephalic - Eye Eye exam: Present: normal appearance, EOMI. Absent: nystagmus - ENT ENT exam: Present: normal exam, normal orophraynx, mucous membranes moist, normal external ear exam - Neck Neck exam: Present: normal inspection, full ROM. Absent: tenderness, meningismus - Respiratory Respiratory exam: Present: normal lung sounds bilaterally. Absent: respiratory distress, wheezes, rales, rhonchi, stridor, decreased breath sounds - Cardiovascular Cardiovascular Exam: Present: regular rate, normal rhythm, normal heart sounds. Absent: bradycardia, tachycardia, irregular rhythm, systolic murmur, diastolic murmur, rubs, gallop - GI/Abdominal GI/Abdominal exam: Present: soft, tenderness, guarding (Voluntary guarding supra pubic region), rebound. Absent: distended, rigid, pulsatile mass - Rectal Rectal exam: Present: normal inspection, normal rectal tone, heme (-) stool, other (Anal fissure at 6:00. Chaperoned by GUZMAN Rodriguez) - External exam: Present: normal external exam. Absent: erythema, swelling, lacerations, ecchymosis Speculum exam: Present: vaginal bleeding, other (Chaperoned by GUZMAN Rodriguez ). Absent: vaginal discharge Bi-manual exam: Present: uterine tenderness, other (There is no left-sided adnexal tenderness. There is minimal right-sided adnexal tenderness.) - Extremities Exam Extremities exam: Present: normal inspection, full ROM, other (2+ pulses noted in the bilateral upper and lower extremities. There is no palpable cord. negative Homans sign. Muscular compartments are soft. The pelvis is stable.). Absent: pedal edema, calf tenderness - Back Exam Back exam: Present: normal inspection, full ROM. Absent: tenderness, CVA tenderness (R), CVA tenderness (L), paraspinal tenderness, vertebral tenderness - Neurological Exam Neurological exam: Present: alert, other (No facial droop. Tongue midline. Extraocular movements intact bilaterally. Facial sensation intact to light touch in V1, V2, V3 distribution bilaterally. 5 and a 5 strength in 4 extremities. Sensation intact to light touch in 4 extremities.). Absent: motor sensory deficit - Psychiatric Psychiatric exam: Present: anxious - Skin Skin exam: Present: warm, dry, intact, normal color. Absent: rash ED Course Vital Signs 02/16/21 02/16/21 02/16/21 16:15 20:00 21:00 Temperature 98.1 F 98 F Pulse Rate 76 70 77 Respiratory 20 18 17 Rate Blood Pressure 104/65 Blood Pressure 136/78 130/68 [Right] O2 Sat by Pulse 98 99 98 Oximetry 02/16/21 02/16/21 21:30 23:00 Temperature Pulse Rate 70 75 Respiratory 16 16 Rate Blood Pressure Blood Pressure 107/57 133/66 [Right] O2 Sat by Pulse 99 98 Oximetry - Reevaluation(s) Reevaluation #1: 02/16/21 21:11 Differential diagnosis, including but not limited to: Ovarian cyst, gynecologic/uterine malignancy, obstruction, anal fissure Assessment and plan: 55-year-old female, who reports that she is postmenopausal, presenting with lower abdominal pain, right lower quadrant pain, and vaginal bleeding. Patient is afebrile with reassuring vital signs. She has lower abdominal tenderness, and gynecologic tenderness. She denies urinary symptoms. 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 We will obtain CT scan of the abdomen pelvis, and pelvic ultrasound. We will treat her pain aggressively. Patient extensively counseled on need to follow-up with outpatient [facility] because she will need to have gynecologic tumor,/cancer/malignancy excluded. Reevaluation #2: 02/16/21 22:44 Patient feeling improved. Ultrasound shows ovarian cyst. No evidence of torsion. CT scan abdomen pelvis pending. Reevaluation #3: 02/16/21 23:27 Final reassessment. Abdominal pain is much improved. No active vomiting. Vital signs remained stable. Pelvic ultrasound negative for acute surgical pathology. CT scan abdomen pelvis negative for acute surgical pathology. Ovarian cyst is suggested. I have gone back and discussed these findings with the patient. I have strongly encouraged the patient to follow-up with an outpatient rope tier to exclude gynecologic cancer, tumor, malignancy. Patient endorsed concerns over not having insurance. I described multiple options for the patient to seek medical insurance, including evaluating and going to the [email or web address] website, calling up local providers offices, and seeing about various pay plans, and options for payment, applying for a local [employer] card, if possible. The patient has articulated understanding. Return precautions are reviewed. ED Medical Decision Making - Lab Data Result diagrams: 02/16/21 17:58 02/16/21 17:58 Vital Signs 02/16/21 02/16/21 16:15 20:00 Temperature 98.1 F 98 F Pulse Rate 76 70 Respiratory 20 18 Rate Blood Pressure 104/65 Blood Pressure 136/78 [Right] O2 Sat by Pulse 98 99 Oximetry Lab Results 02/16/21 02/16/21 Range/Units 17:58 17:58 WBC 3.9 L (4.5-11.0) K/mm3 RBC 4.20 (3.65-5.03) M/mm3 Hgb 12.7 (10.1-14.3) gm/dl Hct 37.2 (30.3-42.9) % MCV 89 (79-97) fl MCH 30 (28-32) pg MCHC 34 (30-34) % RDW 15.6 H (13.2-15.2) % Plt Count 206 (140-440) K/mm3 Lymph % (Auto) 46.2 H (13.4-35.0) % [place] % (Auto) 6.8 (0.0-7.3) % Eos % (Auto) 2.9 (0.0-4.3) % Baso % (Auto) 0.5 (0.0-1.8) % Lymph # (Auto) 1.8 (1.2-5.4) K/mm3 [place] # (Auto) 0.3 (0.0-0.8) K/mm3 Eos # (Auto) 0.1 (0.0-0.4) K/mm3 Baso # (Auto) 0.0 (0.0-0.1) K/mm3 Seg Neutrophils % 43.6 (40.0-70.0) % Seg Neutrophils # 1.7 L (1.8-7.7) K/mm3 Sodium 136 L (137-145) mmol/L Potassium 4.0 (3.6-5.0) mmol/L Chloride 102.3 (98-107) mmol/L Carbon Dioxide 25 (22-30) mmol/L Anion Gap 13 mmol/L BUN 6 L (7-17) mg/dL Creatinine 0.7 (0.6-1.2) mg/dL Estimated GFR > 60 ml/min BUN/Creatinine Ratio 9 % Glucose 75 (65-100) mg/dL Calcium 9.0 (8.4-10.2) mg/dL Total Bilirubin 0.20 (0.1-1.2) mg/dL AST 12 (5-40) units/L ALT < 5 L (7-56) units/L Alkaline Phosphatase 55 (35-129) units/L Total Protein 7.2 (6.3-8.2) g/dL Albumin 4.1 (3.9-5) g/dL Albumin/Globulin Ratio 1.3 % Lipase 21 (13-60) units/L - Radiology Data Radiology results: report reviewed, image reviewed [facility] [address] [place] [address] Ultrasound Report Signed Patient: AMERICO GALINDO MR#: [id number] 21 : 1965 Acct:[id number] Age/Sex: 55 / F ADM Date: 02/16/21 Loc: ED Attending Dr: Ordering Physician: JOSE AMAYA MD Date of Service: 02/16/21 Procedure(s): US transvaginal Accession Number(s): [id number] cc: JOSE AMAYA MD US pelvis duplex doppler comp, US transvaginal INDICATION / CLINICAL INFORMATION: acute lower abd pain, vaginal bleeding. TECHNIQUE: Transabdominal. Duplex Color Doppler used: Yes. COMPARISON: None available FINDINGS: Last menstrual cycle was a couple of months ago. Patient is perimenopausal. UTERUS: Measures 7.9 cm. -Endometrial stripe measures 0.9 cm. - Mass lesions: None. RIGHT ADNEXA: 3 cm right ovarian cyst which is most certainly benign in etiology. Normal color Doppler blood flow. LEFT ADNEXA: Left ovary is not visualized. Normal color Doppler blood flow. URINARY BLADDER: No significant abnormality. FREE FLUID: Minimal free fluid. ADDITIONAL FINDINGS: None. IMPRESSION: 1. No significant abnormality. Signer Name: Efraín Gibson MD Signed: 02/16/2021 9:36 PM Workstation Name: [id number] Transcribed By: Dictated By: Efraín Gibson MD Electronically Authenticated By: Efraín Gibson MD Signed Date/Time: 02/16/212135 DD/ 33 [facility] [address] [place] [address] Cat Scan Report Signed Patient: AMERICO GALINDO MR#: [id number] : 1965 Acct:[id number] Age/Sex: 55 / F ADM Date: 02/16/21 Loc: ED Attending Dr: Rebekah ding Physician: JOSE AMAYA MD Date of Service: 02/16/21 Procedure(s): CT abdomen pelvis w con Accession Number(s): [id number] cc: JOSE AMAYA MD CT OF THE ABDOMEN AND PELVIS WITH INTRAVENOUS CONTRAST INDICATION / CLINICAL INFORMATION: Acute lower abdominal pain. Rectal and vaginal bleeding. TECHNIQUE: The patient received 100 cc Omnipaque [address] scans at this location are performed using CT dose reduction for ALARA by means of automated exposure control. COMPARISON: 12/09/20. FINDINGS: ABDOMEN: The liver, spleen, gallbladder, bile ducts, pancreas, adrenal glands, kidneys and bowel demonstrate no significant abnormality. No adenopathy is seen. There are moderate atherosclerotic calcifications involving aorta without aneurysm. There are pre and retroaortic left renal veins. There is mild bibasilar subsegmental atelectasis. PELVIS: There is a 3.1 cm rounded fluid density in the cul-de-sac on the right along the posterior margin of the right ovary, more likely representing an ovarian cyst than loculated fluid in the cul-de-sac. The uterus and left ovary are normal. The distal ureters and urinary bladder are unremarkable. A normal appendix is present and there is no evidence of diverticulitis. No acute osseous abnormality is present. IMPRESSION: 3.1 cm simple appearing right ovarian cyst is probably physiologic. Signer Name: Raghu Tobin MD Signed: 02/16/2021 11:02 PM Workstation Name: [id number] Transcribed By: RT Dictated By: Raghu Tobin MD Electronically Authenticated By: Raghu Tobin MD Signed Date/Time: 02/16/212301 DD/ 55 Critical care attestation.: If time is entered above; I have spent that time in minutes in the direct care of this critically ill patient, excluding procedure time. ED Disposition Clinical Impression: Lower abdominal pain, Vaginal bleeding Ovarian cyst Qualifiers: Laterality: right Qualified Code(s): N83.201 - Unspecified ovarian cyst, right side Disposition: TO HOME OR SELFCARE Is pt being admited?: No Does the pt Need Aspirin: No Condition: Good Instructions: Ovarian Cyst, [id number], Abnormal Uterine Bleeding Additional Instructions: Do not take metformin medication for the next 2 days, if patient takes this medication. Please take the prescribed pain medications as needed and directed. Cultures were sent today, and results will be available over next 3 to 5 days. Please have a primary care doctor or rope tier contact the medical records department to obtain copies of laboratory studies, radiology studies, and follow-up on nonemergent incidental findings, and both laboratory studies and radiology studies, and to follow-up on culture results. Recommend follow-up with a rope tier within the next week. It is very important to follow-up with a rope tier to make sure that patient's vaginal bleeding is not secondary to gynecologic tumor, cancer, malignancy. For the patient's convenience, a number of local gynecology practices have been listed. Patient may go to [email or web address], and follow instructions on the website to obtain private health insurance. Patient may qualify for assistance with health insurance, however, she will need to follow instructions on the website to determine if she is eligible for financial assistance. Patient may also seek private health insurance through various insurance companies, recommend going online/doing online search, to find options for private health insurance. Patient may also go to the [employer] website, and and obtain information to see if she is eligible for [employer] card/[employer] insurance. Patient may also contact any of the local physicians offices, and obtain information to determine what payment plans are available, if she elects to follow-up with any of the local physicians, as an outpatient. Please return to the emergency room right away with new pain, worsened pain, migration of pain, projectile vomiting, change in mental status, confusion, inability to tolerate liquid feeds, new, worsened or different symptoms not present on the initial emergency room evaluation. If taking the morphine sulfate for pain, do not drive, consume alcohol, or make important decisions. Referrals: CHRISTINE IBANEZ [Primary Care Provider] - 3-5 Days [facility] [Provider Group] - 3-5 Days [facility] [Provider Group] - 3-5 Days [facility] [Provider Group] - 3-5 Days [facility] [Provider Group] - 3-5 Days
[2021-02-16 21:16] LABS: Bilirubin,Urine NEG (Negative); Blood,Urine LG (Negative); Color,Urine Yellow (Yellow); Mucus,Urine FEW /HPF; Protein,Urine <15 mg/dL mg/dL (Negative); Urobilinogen,Urine < 2.0 mg/dL (<2.0)
[2021-02-16 21:18] LABS: RBC,Urine > 182.0 /HPF (0.0-6.0)
--- NOTE | 2021-02-16 21:40 | Ultrasound Report ---
US pelvis duplex doppler comp, US transvaginal INDICATION / CLINICAL INFORMATION: acute lower abd pain, vaginal bleeding. TECHNIQUE: Transabdominal. Duplex Color Doppler used: Yes. COMPARISON: None available FINDINGS: Last menstrual cycle was a couple of months ago. Patient is perimenopausal. UTERUS: Measures 7.9 cm. -Endometrial stripe measures 0.9 cm. - Mass lesions: None. RIGHT ADNEXA: 3 cm right ovarian cyst which is most certainly benign in etiology. Normal color Doppl er blood flow. LEFT ADNEXA: Left ovary is not visualized. Normal color Doppler blood flow. URINARY BLADDER: No significant abnormality. FREE FLUID: Minimal free fluid. ADDITIONAL FINDINGS: None. IMPRESSION: 1. No significant abnormality. Signer Name: Efraín Gibson MD Signed: 02/16/2021 9:36 PM Workstation Name: [id number]
[2021-02-16 23:01] VITALS: BP 133/66
--- NOTE | 2021-02-16 23:06 | Cat Scan Report ---
CT OF THE ABDOMEN AND PELVIS WITH INTRAVENOUS CONTRAST INDICATION / CLINICAL INFORMATION: Acute lower abdominal pain. Rectal and vaginal bleeding. TECHNIQUE: The patient received 100 cc Omnipaque [address] scans at this location are performed using CT dose reduction for ALARA by means of automated exposure control. COMPARISON: 12/09/20. FINDINGS: ABDOMEN: The liver, spleen, gallbladder, bile ducts, pancreas, adrenal glands, kidneys and bowel demo nstrate no significant abnormality. No adenopathy is seen. There are moderate atherosclerotic calcifi cations involving aorta without aneurysm. There are pre and retroaortic left renal veins. There is mi ld bibasilar subsegmental atelectasis. PELVIS: There is a 3.1 cm rounded fluid density in the cul-de-sac on the right along the posterior ma rgin of the right ovary, more likely representing an ovarian cyst than loculated fluid in the cul-de- sac. The uterus and left ovary are normal. The distal ureters and urinary bladder are unremarkable. A normal appendix is present and there is no evidence of diverticulitis. No acute osseous abnormality is present. IMPRESSION: 3.1 cm simple appearing right ovarian cyst is probably physiologic. Signer Name: Raghu Tobin MD Signed: 02/16/2021 11:02 PM Workstation Name: [id number]
== END 2021-02-16 23:51 | disposition home or self-care (01) ==
LOC: ED 15:56
DX: N83.201 Unspecified ovarian cyst, right side (principal); N93.9 Abnormal uterine and vaginal bleeding, unspecified; R10.31 Right lower quadrant pain; K21.9 Gastro-esophageal reflux disease without esophagitis; D64.9 Anemia, unspecified; F17.200 Nicotine dependence, unspecified, uncomplicated; Z79.899 Other long term (current) drug therapy; Z88.0 Allergy status to penicillin; Z88.8 Allergy status to other drugs, medicaments and biological substances; Z98.890 Other specified postprocedural states
CPT/HCPCS: 36415; 74177; 76830; 80053; 81001; 83690; 85025; 87210; 87591; 93975; 96361; 96374; 96376; 99285; J1170; J7120; Q9967

== ENCOUNTER 2021-03-17 01:40 | Emergency (ER) | payer SELFPAY ==
[2021-03-17 01:57] VITALS: BP 118/69
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
== END 2021-03-17 07:00 | disposition left against medical advice (07) ==
LOC: ED 01:40
DX: G89.29 Other chronic pain (principal); Z53.21 Procedure and treatment not carried out due to patient leaving prior to being seen by health care provider

== ENCOUNTER 2021-04-02 23:56 | Emergency (ER) | payer SELFPAY ==
[2021-04-03 00:53] VITALS: BP 112/73
--- NOTE | 2021-04-03 00:53 | Event Note ---
ED Screening Note ED Screening Note: head and neck pain- new over 2 days did not see her pcp rude in triage; argumentative pmh gib rx none lmp last month psh t/a This initial assessment/diagnostic orders/clinical plan/treatment(s) is/are subject to change based on patients health status, clinical progression and re- assessment by fellow clinical providers in the ED. Further treatment and workup at subsequent clinical providers discretion. Patient/guardian urged not to elope from the ED as their condition may be serious if not clinically assessed and managed. Initial orders include: reeval in [facility]
[2021-04-03] MEDS ORDERED: HYDROcodone/ACETAMINOPHEN 5-325 MG TAB PO STA (04:54)
[2021-04-03 05:54] LABS: Basophils # (Auto) 0.1 K/mm3 (0.0-0.1); Basophils % (Auto) 1.5 % (0.0-1.8); Eosinophils # (Auto) 0.2 K/mm3 (0.0-0.4); Eosinophils % (Auto) 4.4 % (0.0-4.3); Hematocrit 33.8 % (30.3-42.9); Hemoglobin 11.5 gm/dl (10.1-14.3); Lymphocytes # (Auto) 1.9 K/mm3 (1.2-5.4); Lymphocytes % (Auto) 43.4 % (13.4-35.0); Mean Corpuscular HGB Conc 34 % (30-34); Mean Corpuscular Volume 90 fl (79-97); Monocytes # (Auto) 0.4 K/mm3 (0.0-0.8); Monocytes % (Auto) 9.4 % (0.0-7.3); Platelet Count 182 K/mm3 (140-440); Red Blood Count 3.78 M/mm3 (3.65-5.03); Red Cell Distribution Width 14.9 % (13.2-15.2)
[2021-04-03 06:14] LABS: Albumin 4.1 g/dL (3.9-5); Blood Urea Nitrogen 7 mg/dL (7-17); Calcium 8.9 mg/dL (8.4-10.2); Hemolysis Index 25
[2021-04-03 06:19] LABS: Alanine Aminotransferase < 5 units/L (7-56); BUN/Creatinine Ratio 10
[2021-04-03 06:25] LABS: Erythrocyte Sedimentation Rate 25 mm/Hr (0-20)
--- NOTE | 2021-04-03 07:01 | Emergency Department Report ---
ED General Adult HPI - General Chief complaint: Pain General Stated complaint: HEAD/NECK/BACK PAIN Time Seen by Provider: 04/03/21 00:52 Source: patient Mode of arrival: Ambulatory Limitations: No Limitations - History of Present Illness Initial comments: 55-year-old [place] female [facility] emerge department complaining of a 1 to 2-week history of neck pain which has been progressively worsening over the past 2 days and noticing some knots in the area which are tender to her knowledge. She reports no sore throat, no fever, chills, sweats, no odynophagia or dysphagia, no rashes to the scalp, no traumatic events, no chest pain or palpitations. -: Gradual Location: head Radiation: non-radiation Severity scale (0 -10): 3 Quality: aching, dull Consistency: constant Improves with: none Worsens with: none Associated Symptoms: denies: cough, diaphoresis, loss of appetite, malaise, nausea/vomiting, syncope - Related Data Previous Rx's Medication Instructions Recorded Last Taken Type Amitriptyline [Elavil] 10 mg PO QHS #30 tablet 04/06/21 Unknown Rx Nitrofurantoin Macrocrystal 100 mg PO DAILY #5 capsule 04/06/21 Unknown Rx [Nitrofurantoin] methOCARBAMOL [Robaxin TAB] 500 mg PO BID #20 tablet 04/06/21 Unknown Rx Allergies Allergy/AdvReac Type Severity Reaction Status Date / Time ondansetron Allergy Unknown Verified 04/04/21 11:19 [From Zofran (as hydrochloride)] pantoprazole [From Protonix] Allergy Unknown Verified 04/04/21 11:19 Penicillins Allergy Unknown Verified 04/04/21 11:19 promethazine [From Phenergan] Allergy Unknown Verified 04/04/21 11:19 Sulfa (Sulfonamide Allergy Unknown Verified 04/04/21 11:19 Antibiotics) tomato Allergy Unknown Unverified 04/05/21 12:23 ED Review of Systems ROS: Stated complaint: HEAD/NECK/BACK PAIN Other details as noted in HPI Comment: All other systems reviewed and negative ED Past Medical Hx - Past Medical History Previous Medical History?: No Hx GERD: Yes Additional medical history: GI bleed, Anemia - Surgical History Additional Surgical History: tonsillectomy. hemmorhoids. fissure repair - Social History Smoking Status: Never Smoker Substance Use Type: None - Medications Home Medications: Home Medications Medication Instructions Recorded Confirmed Last Taken Type Amitriptyline [Elavil] 10 mg PO QHS #30 tablet 04/06/21 Unknown Rx Nitrofurantoin Macrocrystal 100 mg PO DAILY #5 capsule 04/06/21 Unknown Rx [Nitrofurantoin] methOCARBAMOL [Robaxin TAB] 500 mg PO BID #20 tablet 04/06/21 Unknown Rx ED Physical Exam - General Limitations: No Limitations General appearance: alert, in no apparent distress - Head Head exam: Present: atraumatic, normocephalic - Eye Eye exam: Present: normal appearance - ENT ENT exam: Present: mucous membranes moist - Neck Neck exam: Present: normal inspection, lymphadenopathy (Yes right to be posterior neck region) - Respiratory Respiratory exam: Present: normal lung sounds bilaterally. Absent: respiratory distress, wheezes, rales, accessory muscle use, decreased breath sounds - Cardiovascular Cardiovascular Exam: Present: regular rate, normal rhythm. Absent: systolic murmur, diastolic murmur, rubs, gallop - GI/Abdominal GI/Abdominal exam: Present: soft, normal bowel sounds - Extremities Exam Extremities exam: Present: normal inspection - Back Exam Back exam: Present: normal inspection - Neurological Exam Neurological exam: Present: alert, oriented X3 - Psychiatric Psychiatric exam: Present: normal affect, normal mood - Skin Skin exam: Present: warm, dry, intact, normal color. Absent: rash ED Course Vital Signs 04/03/21 04/03/21 00:51 06:55 Pulse Rate 80 72 Respiratory 18 17 Rate Blood Pressure 112/73 O2 Sat by Pulse 100 99 Oximetry ED Medical Decision Making - Lab Data Result diagrams: 04/03/21 05:35 04/03/21 05:35 Critical care attestation.: If time is entered above; I have spent that time in minutes in the direct care of this critically ill patient, excluding procedure time. ED Disposition Clinical Impression: Neck pain, Lymphadenopathy of head and neck Disposition: DC-01 TO HOME OR SELFCARE Is pt being admited?: No Does the pt Need Aspirin: No Condition: Stable Instructions: Lymphadenopathy Referrals: [facility] [Provider Group] - 3-5 Days [facility], [Primary Care Provider] - 3-5 Days MONTANA GARCIA MD [Staff Physician] - 3-5 Days
== END 2021-04-03 06:55 | disposition home or self-care (01) ==
LOC: ED 23:56
DX: M54.2 Cervicalgia (principal); K21.9 Gastro-esophageal reflux disease without esophagitis; Z86.2 Personal history of diseases of the blood and blood-forming organs and certain disorders involving the immune mechanism; Z98.890 Other specified postprocedural states; Z79.899 Other long term (current) drug therapy; Z88.0 Allergy status to penicillin; Z88.8 Allergy status to other drugs, medicaments and biological substances; Z88.6 Allergy status to analgesic agent; Z90.89 Acquired absence of other organs
CPT/HCPCS: 36415; 80053; 85025; 85652; 99283

== ENCOUNTER 2021-04-03 09:20 | Emergency (ER) | payer SELFPAY ==
[2021-04-03 09:26] VITALS: BP 104/72
--- NOTE | 2021-04-03 14:54 | Emergency Department Report ---
Chief Complaint: Back Pain/Injury Stated Complaint: HEAD/NECK/BACK PAIN Time Seen by Provider: 04/03/21 14:39 - HPI History of Present Illness: Patient is a 55-year-old F Ethiopian female who is here for same complaint as yesterday. Patient states she has headache is mostly posterior. She was diagnosed with some lymphadenitis of the posterior cervical chain last night and placed on clindamycin. Patient states she has not left the emergency department because she feels as though no tests were done to confirm that these were swollen lymph nodes. Patient also states she has some rectal bleeding which is chronic. Review of the patient is past medical history she was here on 03/26/2021 with back pain and vaginal bleeding was diagnosed with a right-sided ovarian cyst. She has not followed up with [facility]. She also has a longstanding history of GI issues. - ROS Review of Systems: All systems reviewed and are negative - Exam Vital Signs: Vital Signs 04/03/21 09:25 Temperature 98.5 F Pulse Rate 89 Respiratory 18 Rate Blood Pressure 104/72 [Right] O2 Sat by Pulse 100 Oximetry Physical Exam: Vital signs stable. Patient has 3 small mobile slightly tender lymph nodes in the left posterior cervical chain. She has full range of motion to her neck. No other obvious signs of infection. She is alert and oriented x3 in no acute distress. There is no respiratory distress for the respiratory exam. MSE screening note: Focused history and physical exam performed. Due to findings the following was ordered: ED Medical Decision Making - Medical Decision Making Attempted to have a discussion about lymph node swelling and need to take medications follow-up outpatient for her condition the patient became irate and began to yell. She states that she needs a CAT scan of the head to rule out brain bleeding. Patient already told me that she had no head trauma and she is alert and oriented x3. Headache likely secondary to the lymph node swelling. Do not feel as though advanced imaging is necessary. Patient has not gotten her prescription for clindamycin filled. Patient is discharged and can follow-up with GI regarding her chronic GI issues the patient will also be given primary care for follow-up with the lymph node swelling. ED Disposition for MSE Clinical Impression: Lymphadenopathy of head and neck, Rectal bleeding Disposition: MED SCREENING EXAM-LEFT Is pt being admited?: No Does the pt Need Aspirin: No Condition: Stable Instructions: Lymphadenopathy Additional Instructions: Please get the prescriptions filled. You have been ruled out for medical emergency at this time. Your vital signs are stable. Referrals: PRIMARY CARE, [Primary Care Provider] - 3-5 Days Time of Disposition: 14:54
== END 2021-04-03 16:13 | disposition left against medical advice (07) ==
LOC: ED 09:20
DX: R51.9 Headache, unspecified (principal); Z53.21 Procedure and treatment not carried out due to patient leaving prior to being seen by health care provider

== ENCOUNTER 2021-04-03 22:12 | Emergency (ER) | payer SELFPAY | END 2021-04-03 22:17 | disposition left against medical advice (07) | LOC: ED 22:12 | DX: M54.2 Cervicalgia (principal); R51.9 Headache, unspecified; H53.8 Other visual disturbances; Z53.21 Procedure and treatment not carried out due to patient leaving prior to being seen by health care provider ==

== ENCOUNTER 2021-04-04 04:24 | Observation (INO) | payer SELFPAY ==
[2021-04-04] MEDS ORDERED: MORPHINE 4 MG/1 ML INJ IV ONE (08:36)
[2021-04-04] MEDS ORDERED: HYDROcodone/ACETAMINOPHEN 5-325 MG TAB PO ONE ×2 (08:42→11:00)
--- NOTE | 2021-04-04 08:42 | Emergency Department Report ---
<XIMENA WEBB - Last Filed: 04/04/21 18:45> ED General Adult HPI - General Chief complaint: Pain General Stated complaint: BACK/NECK/HEAD/FACE PAIN Time Seen by Provider: 04/04/21 07:33 Source: patient Mode of arrival: Ambulatory Limitations: No Limitations - History of Present Illness Initial comments: 55-year-old female presents to the ER today with multiple complaints. Patient states that she has been having pain to the occipital aspect of her head radiating down into her neck and down into her lower back. She also reports associated blurry vision, feeling off balance, rectal bleeding, and intermittent nosebleeds as well as cloudiness in darker color urine but no dysuria or hematuria. Patient states that the headache, and the pain down into her neck and her back started a couple days ago but she does admit to history of chronic low back pain. Patient states that the blurry vision and the feeling off paulette nce and to change the color of the urine has also started a couple days ago. She states that the rectal bleeding was yesterday, and color of the stool was that of "a cranberry color". She has had rectal bleeding before in the past and she is also had intermittent nosebleeds before in the past. She states that she has been "eating" Motrin for the pain. She denies any illicit drug use or alcohol use. She states that she does not have a primary care doctor nor specialist that she sees regularly. She reports no focal weakness, numbness, tingling, chest pain, shortness of breath, speech changes or abdominal pain. She denies any head or neck or back injury or strenuous activity. She states that she had a low-grade temperature of 99-100 but she is not quite sure exactly how high it was but otherwise denies any chills, generalized body aches, URI symptoms or cough. This is her third visit here for similar symptoms. She had some lab work done yesterday which was unremarkable. She was discharged home with tramadol which she states she took but did not help the pain. She denies any significant past history. MD Complaint: Neck pain, headache, off balance, vision change, rectal bleed -: week(s) - Related Data Home Medications Medication Instructions Recorded Confirmed Last Taken No Known Home Medications [No 04/05/21 04/05/21 Unknown Reported Home Medications] Allergies Allergy/AdvReac Type Severity Reaction Status Date / Time ondansetron Allergy Unknown Verified 04/04/21 11:19 [From Zofran (as hydrochloride)] pantoprazole [From Protonix] Allergy Unknown Verified 04/04/21 11:19 Penicillins Allergy Unknown Verified 04/04/21 11:19 promethazine [From Phenergan] Allergy Unknown Verified 04/04/21 11:19 Sulfa (Sulfonamide Allergy Unknown Verified 04/04/21 11:19 Antibiotics) tomato Allergy Unknown Unverified 04/05/21 12:23 ED Review of Systems Comment: All other systems reviewed and negative Constitutional: denies: chills, diaphoresis, fever, malaise, weakness Eyes: denies: eye pain, eye discharge, vision change ENT: denies: ear pain, throat pain, dental pain, hearing loss, epistaxis, congestion Respiratory: denies: cough, orthopnea, shortness of breath, SOB with exertion, SOB at rest, wheezing Cardiovascular: denies: chest pain, palpitations, dyspnea on exertion, orthopnea, edema, syncope, paroxysmal nocturnal dyspnea Gastrointestinal: denies: abdominal pain, nausea, vomiting, diarrhea, constipation, hematemesis, melena, hematochezia Genitourinary: other (Cloudy urine). denies: urgency, dysuria, frequency, hematuria, discharge, abnormal menses, dyspareunia Musculoskeletal: back pain, arthralgia, myalgia, other (Neck pain) Skin: denies: rash, lesions Neurological: headache, other (Off balance). denies: weakness, numbness, paresthesias, confusion Psychiatric: denies: anxiety, depression, auditory hallucinations, visual hallucinations, homicidal thoughts, suicidal thoughts Hematological/Lymphatic: as per HPI. denies: easy bleeding, easy bruising, sw ollen glands ED Past Medical Hx - Past Medical History Previous Medical History?: Yes Hx GERD: Yes Additional medical history: GI bleed, Anemia - Surgical History Past Surgical History?: Yes Additional Surgical History: tonsillectomy. hemmorhoids. fissure repair - Social History Smoking Status: Never Smoker Substance Use Type: None - Medications Home Medications: Home Medications Medication Instructions Recorded Confirmed Last Taken Type No Known Home Medications [No 04/05/21 04/05/21 Unknown History Reported Home Medications] ED Physical Exam - General Limitations: No Limitations General appearance: alert, in no apparent distress - Head Head exam: Present: atraumatic, normocephalic, normal inspection - Eye Eye exam: Present: normal appearance, PERRL, EOMI Pupils: Present: normal accommodation - ENT ENT exam: Present: normal exam, mucous membranes moist, TM's normal bilaterally - Neck Neck exam: Present: normal inspection, tenderness (Diffuse tenderness to palpation to the cervical spine), full ROM (Mild reduction in range of motion of the cervical spine due to pain). Absent: meningismus, lymphadenopathy - Respiratory Respiratory exam: Present: normal lung sounds bilaterally. Absent: respiratory distress, wheezes, rales, rhonchi - Cardiovascular Cardiovascular Exam: Present: regular rate, normal rhythm, normal heart sounds - GI/Abdominal GI/Abdominal exam: Present: soft. Absent: distended, tenderness, guarding, rebound - Extremities Exam Extremities exam: Present: normal inspection, full ROM, normal capillary refill. Absent: tenderness, pedal edema, calf tenderness - Back Exam Back exam: Present: normal inspection, paraspinal tenderness (Bilateral lumbar area), vertebral tenderness (Lumbar area) - Neurological Exam Neurological exam: Present: alert, oriented X3, CN II-XII intact, normal gait. Absent: motor sensory deficit - Psychiatric Psychiatric exam: Present: normal affect, normal mood - Skin Skin exam: Present: intact ED Medical Decision Making - Lab Data Result diagrams: 04/04/21 08:30 04/04/21 08:30 - EKG Data EKG shows normal: sinus rhythm Rate: normal (63) - Radiology Data Radiology results: report reviewed Patient: AMERICO GALINDO MR#: [id number] : 1965 Acct:[id number] Age/Sex: 55 / F ADM Date: 04/04/21 Loc: ED Attending Dr: Ordering Physician: XIMENA WEBB Date of Service: 04/04/21 Procedure(s): CT head/brain wo con Accession Number(s): [id number] cc: XIMENA WEBB CT BRAIN: 04/04/2021 INDICATION / CLINICAL INFORMATION: HEADACHE. COMPARISON: None available. FINDINGS: BRAIN/INTRACRANIAL STRUCTURES: Unenhanced CT images of the brain demonstrate no evidence of acute intracranial abnormality. Ventricles and sulci are normal in size and shape. There is no evidence of ischemic injury, hemorrhage, or mass. There are no abnormal extra-axial fluid collections. EXTRACRANIAL STRUCTURES: Unremarkable. IMPRESSION: Negative unenhanced CT of the brain. All CT scans at this location are performed using dose reduction to ALARA by means of automated exposure control. Signer Name: Rene Hayden MD Signed: 04/04/2021 9:16 AM Workstation Name: [id number] Transcribed By: BAL Dictated By: Rene Hayden MD Electronically Authenticated By: Rene Hayden MD Signed Date/Time: 04/04/21915 DD/ 8 TD/TT: - Medical Decision Making After obtaining history and doing a full exam with patient, informed patient that since this is her third visit to the ER for the same symptoms we will do some additional testing. I discussed with patient that we will obtain labs as well as do a CT of the head and cervical spine. Informed patient that our goal today is to rule out any emergencies that would require admission or transfer or surgery. Patient initially expressed understanding and agreed with testing. When CT came to get patient, she refused the CT and was requesting to have x-r ays done instead. I tried to explain to patient that the CT scan was more sensitive than x-ray and would pickle pumper more than the CT scan. Patient kept arguing with me stating that Im refusing to give her an xray despite me explaining to her several times that CT is more sensitive than xray especially for head and neck. I discussed case with Dr Ruiz, and he recommended that if patient is refusing and she is mentally stable and neurologically intact and she can sign out AMA. I again discussed the benefits and the risk of doing a CT with patient and that if she is refusing and she will have to sign out AMA. She then agreed to do CT. 0921: Pt was seen by Dr Ruiz and myself, after evaluating pt he recommended adding CTA neck and Head to rule out vertebral arteries/carotid artery di ssection/aneurysm and also getting a neuro consult and possibly a spinal tap. Labs reviewed and unremarkable. Additional testing was discussed with patient while we were in the room and she agreed to the testing. 1250: Patient currently getting Teleneuro constult CT head shows nothing acute. CT cervical spine negative. Downtime preliminary wet read on the CTA head and neck by the radiologist was negative for anything acute. Neurologist recommend ruling out meningitis and admission for observation and MRI even if its negative. 1414: Spinal tap attempted by Dr Ruiz with me and oil driller as witness. Unfortunately blind tap unsuccessful. Will try to obtain LP under fluoroscopy. 1600: Dr Ruiz turned case over to Dr Hong since he was leaving at 4pm. LP results pending and patient to be admitted dispite results 1756: CSF glucose and protein nl. CSF wbc pending. Dr Hong discussed case with Dr Edwards, hospitalist for admission, he agreed to see pt. ED Disposition Clinical Impression: Headache, Neck pain, Back pain, Dizzy Disposition: DC-09 OP ADMIT IP TO THIS HOSP Is pt being admited?: Yes Condition: Good <JOSE RUIZ - Last Filed: 04/05/21 12:29> ED Review of Systems ROS: Stated complaint: BACK/NECK/HEAD/FACE PAIN Other details as noted in HPI ED Course Vital Signs 04/04/21 04/04/21 04/04/21 04:40 11:22 13:00 Temperature 98.6 F 98.7 F Pulse Rate 77 67 Respiratory 18 16 14 Rate Blood Pressure 125/72 Blood Pressure 108/67 [Left] O2 Sat by Pulse 98 Oximetry 04/04/21 20:07 Temperature 98.9 F Pulse Rate 72 Respiratory 18 Rate Blood Pressure Blood Pressure 96/63 [Left] O2 Sat by Pulse 98 Oximetry - Lumbar Puncture Consent Obtained: verbal consent, written consent, emergent situation Time Out Performed: Yes Indication for Procedure: headache, other (Rule out aseptic meningitis) Patient Position: Sitting Upright/Leaning F Skin Prep: Povidone-Iodine 1% Local Anesthetic Used: Lidocaine 1% Amount of anesthesia used (mls): 8 Spinal Needle Gauge: 20G Spinal Needle Length: 3in Interspace Used: L4-L5 Complications: unable to obtain CSF Patient Tolerated Procedure: well ED Medical Decision Making - Lab Data Result diagrams: 04/05/21 08:22 04/05/21 08:22 Critical care attestation.: If time is entered above; I have spent that time in minutes in the direct care of this critically ill patient, excluding procedure time. ED Disposition Is pt being admited?: Yes
[2021-04-04 09:03] LABS: Basophils % (Auto) 0.5 % (0.0-1.8); Eosinophils # (Auto) 0.2 K/mm3 (0.0-0.4); Hematocrit 37.9 % (30.3-42.9); Hemoglobin 12.6 gm/dl (10.1-14.3); Lymphocytes # (Auto) 1.3 K/mm3 (1.2-5.4); Lymphocytes % (Auto) 34.4 % (13.4-35.0); Mean Corpuscular HGB Conc 33 % (30-34); Mean Corpuscular Volume 89 fl (79-97); Monocytes # (Auto) 0.2 K/mm3 (0.0-0.8); Monocytes % (Auto) 6.6 % (0.0-7.3); Platelet Count 220 K/mm3 (140-440); Red Blood Count 4.24 M/mm3 (3.65-5.03); Red Cell Distribution Width 15.6 % (13.2-15.2)
--- NOTE | 2021-04-04 09:21 | Cat Scan Report ---
CT BRAIN: 04/04/2021 INDICATION / CLINICAL INFORMATION: HEADACHE. COMPARISON: None available. FINDINGS: BRAIN/INTRACRANIAL STRUCTURES: Unenhanced CT images of the brain demonstrate no evidence of acute int racranial abnormality. Ventricles and sulci are normal in size and shape. There is no evidence of ischemic injury, hemorrhage, or mass. There are no abnormal extra-axial fluid collections. EXTRACRANIAL STRUCTURES: Unremarkable. IMPRESSION: Negative unenhanced CT of the brain. All CT scans at this location are performed using dose reduction to ALARA by means of automated expos ure control. Signer Name: Rene Hayden MD Signed: 04/04/2021 9:16 AM Workstation Name: [id number]
[2021-04-04] MEDS ORDERED: METOCLOPRAMIDE 10 MG/2 ML INJ IV ONE (09:23)
[2021-04-04] MEDS ORDERED: diphenhydrAMINE 50 MG/ML VIAL IV ONE (09:23)
[2021-04-04] MEDS ORDERED: SODIUM CHLORIDE 0.9% 1000 ML 1,000 ML IV ONE (09:23)
[2021-04-04] MEDS ORDERED: LIDOCAINE (4%) 40 MG/ML TOPICAL SOLN 50 ML BOTTLE TP ONE (09:26)
--- NOTE | 2021-04-04 09:26 | Event Note ---
Date of service: 04/04/21 Face to Face: The patient was evaluated in the emergency department for symptoms described in the history of present illness. He/she was evaluated in the context of the global COVID-19 pandemic, which necessitated consideration that the patient might be at risk for infection with the virus that causes COVID-19. Institutional protocols and algorithms that pertain to the evaluation of patients at risk for COVID-19 are in a state of rapid change based on information released by regulatory bodies including the CDC and federal and state organizations. These policies and algorithms were followed during the patient's care in the emergency department. Please note that these policies, procedures and recommendations changed on a rapid basis. 55-year-old female complaining of headache, neck pain, blurry vision and feeling off balance for the past 3 to 4 days. Denies trauma, chiropractic manipulation, recent motor vehicle accident. Believes that she had a low-grade temperature but is not sure. Nursing team and physician optometry assistant indicate that she walks with a steady gait, and has no lateralizing deficits on my examination. She also reports that she had her tonsils taken out. She does have some neck stiffness and pain with passive and active range of motion. She has a GCS of 15. CT scan of the brain and cervical spine have been obtained, we will obtain CT angiogram head and neck as well. We will treat her symptoms, and obtain a rapid strep. Have also recommended urgent neurology consultation. If initial diagnostics unremarkable/nondiagnostic, plan to perform spinal tap to exclude aseptic meningitis. Have discussed this plan of care with the physician optometry assistant Ms. Stone, who has articulated understanding. Patient had a CT scan of her abdomen pelvis a few days ago, which was unremarkable for acute findings 04/04/2011; 14: 11 Wet read from radiologist, brain, cervical spine negative for acute findings, CT angiogram head and neck negative for acute findings. Patient provided verbal and written informed consent for spinal tap. We attempted spinal tap, but were unsuccessful. Fluoroscopically ordered spinal tap ordered. This is very unlikely to be bacterial meningitis. Neurology recommendations reviewed and appreciated. 04/04/2021 Lumbar puncture attempted and successful by interventional radiology. Results pending. Dr. Hong to follow-up results simultaneously with the physician associated. Vital Signs 04/04/21 04/04/21 04:40 11:22 Temperature 98.6 F 98.7 F Pulse Rate 77 67 Respiratory 18 16 Rate Blood Pressure 125/72 Blood Pressure 108/67 [Left] O2 Sat by Pulse 98 Oximetry Lab Results 04/04/21 04/04/21 04/04/21 Range/Units 08:30 08:30 11:15 WBC 3.7 L (4.5-11.0) K/mm3 RBC 4.24 (3.65-5.03) M/mm3 Hgb 12.6 (10.1-14.3) gm/dl Hct 37.9 (30.3-42.9) % MCV 89 (79-97) fl MCH 30 (28-32) pg MCHC 33 (30-34) % RDW 15.6 H (13.2-15.2) % Plt Count 220 (140-440) K/mm3 Lymph % (Auto) 34.4 (13.4-35.0) % Bland % (Auto) 6.6 (0.0-7.3) % Eos % (Auto) 6.0 H (0.0-4.3) % Baso % (Auto) 0.5 (0.0-1.8) % Lymph # (Auto) 1.3 (1.2-5.4) K/mm3 Bland # (Auto) 0.2 (0.0-0.8) K/mm3 Eos # (Auto) 0.2 (0.0-0.4) K/mm3 Baso # (Auto) 0.0 (0.0-0.1) K/mm3 Seg Neutrophils % 52.5 (40.0-70.0) % Seg Neutrophils # 1.9 (1.8-7.7) K/mm3 Sodium 137 (137-145) mmol/L Potassium 4.1 (3.6-5.0) mmol/L Chloride 101.2 (98-107) mmol/L Carbon Dioxide 26 (22-30) mmol/L Anion Gap 14 mmol/L BUN 8 (7-17) mg/dL Creatinine 0.6 (0.6-1.2) mg/dL Estimated GFR > 60 ml/min BUN/Creatinine Ratio 13 % Glucose 80 (65-100) mg/dL Calcium 9.8 (8.4-10.2) mg/dL Total Bilirubin 0.30 (0.1-1.2) mg/dL AST 12 (5-40) units/L ALT < 5 L (7-56) units/L Alkaline Phosphatase 53 (35-129) units/L Troponin T < 0.010 (0.00-0.029) ng/mL Total Protein 7.1 (6.3-8.2) g/dL Albumin 4.4 (3.9-5) g/dL Albumin/Globulin Ratio 1.6 % Lipase 21 (13-60) units/L Urine Color Yellow (Yellow) Urine Turbidity Slightly-cloudy (Clear) Urine pH 5.0 (5.0-7.0) Ur Specific [place] 1.032 H (1.003-1.030) Urine Protein <15 mg/dl (Negative) mg/dL Urine Glucose (UA) Neg (Negative) mg/dL Urine Ketones 20 (Negative) mg/dL Urine Blood Neg (Negative) Urine Nitrite Neg (Negative) Urine Bilirubin Neg (Negative) Urine Urobilinogen < 2.0 (<2.0) mg/dL Ur Leukocyte Esterase Sm (Negative) Urine WBC (Auto) 11.0 H (0.0-6.0) /HPF Urine RBC (Auto) 5.0 (0.0-6.0) /HPF U Epithel Cells (Auto) 21.0 H (0-13.0) /HPF Urine Mucus 2+ /HPF Urine Opiates Screen Urine Methadone Screen Ur Barbiturates Screen Ur Phencyclidine Scrn Ur Amphetamines Screen U Benzodiazepines Scrn Urine Cocaine Screen U Marijuana (THC) Screen Drugs of Abuse Note Group A Strep Rapid (Negative) 04/04/21 04/04/21 Range/Units 11:15 12:07 WBC (4.5-11.0) K/mm3 RBC (3.65-5.03) M/mm3 Hgb (10.1-14.3) gm/dl Hct (30.3-42.9) % MCV (79-97) fl MCH (28-32) pg MCHC (30-34) % RDW (13.2-15.2) % Plt Count (140-440) K/mm3 Lymph % (Auto) (13.4-35.0) % Bland % (Auto) (0.0-7.3) % Eos % (Auto) (0.0-4.3) % Baso % (Auto) (0.0-1.8) % Lymph # (Auto) (1.2-5.4) K/mm3 Bland # (Auto) (0.0-0.8) K/mm3 Eos # (Auto) (0.0-0.4) K/mm3 Baso # (Auto) (0.0-0.1) K/mm3 Seg Neutrophils % (40.0-70.0) % Seg Neutrophils # (1.8-7.7) K/mm3 Sodium (137-145) mmol/L Potassium (3.6-5.0) mmol/L Chloride (98-107) mmol/L Carbon Dioxide (22-30) mmol/L Anion Gap mmol/L BUN (7-17) mg/dL Creatinine (0.6-1.2) mg/dL Estimated GFR ml/min BUN/Creatinine Ratio % Glucose (65-100) mg/dL Calcium (8.4-10.2) mg/dL Total Bilirubin (0.1-1.2) mg/dL AST (5-40) units/L ALT (7-56) units/L Alkaline Phosphatase (35-129) units/L Troponin T (0.00-0.029) ng/mL Total Protein (6.3-8.2) g/dL Albumin (3.9-5) g/dL Albumin/Globulin Ratio % Lipase (13-60) units/L Urine Color (Yellow) Urine Turbidity (Clear) Urine pH (5.0-7.0) Ur Specific [place] (1.003-1.030) Urine Protein (Negative) mg/dL Urine Glucose (UA) (Negative) mg/dL Urine Ketones (Negative) mg/dL Urine Blood (Negative) Urine Nitrite (Negative) Urine Bilirubin (Negative) Urine Urobilinogen (<2.0) mg/dL Ur Leukocyte Esterase (Negative) Urine WBC (Auto) (0.0-6.0) /HPF Urine RBC (Auto) (0.0-6.0) /HPF U Epithel Cells (Auto) (0-13.0) /HPF Urine Mucus /HPF Urine Opiates Screen Negative Urine Methadone Screen Negative Ur Barbiturates Screen Negative Ur Phencyclidine Scrn Negative Ur Amphetamines Screen Negative U Benzodiazepines Scrn Negative Urine Cocaine Screen Negative U Marijuana (THC) Screen Negative Drugs of Abuse Note Disclamer Group A Strep Rapid Negative (Negative) Vital Signs 04/04/21 04:40 Temperature 98.6 F Pulse Rate 77 Respiratory 18 Rate Blood Pressure 125/72 O2 Sat by Pulse 98 Oximetry Lab Results 04/04/21 Range/Units 08:30 WBC 3.7 L (4.5-11.0) K/mm3 RBC 4.24 (3.65-5.03) M/mm3 Hgb 12.6 (10.1-14.3) gm/dl Hct 37.9 (30.3-42.9) % MCV 89 (79-97) fl MCH 30 (28-32) pg MCHC 33 (30-34) % RDW 15.6 H (13.2-15.2) % Plt Count 220 (140-440) K/mm3 Lymph % (Auto) 34.4 (13.4-35.0) % Bland % (Auto) 6.6 (0.0-7.3) % Eos % (Auto) 6.0 H (0.0-4.3) % Baso % (Auto) 0.5 (0.0-1.8) % Lymph # (Auto) 1.3 (1.2-5.4) K/mm3 Bland # (Auto) 0.2 (0.0-0.8) K/mm3 Eos # (Auto) 0.2 (0.0-0.4) K/mm3 Baso # (Auto) 0.0 (0.0-0.1) K/mm3 Seg Neutrophils % 52.5 (40.0-70.0) % Seg Neutrophils # 1.9 (1.8-7.7) K/mm3 Lab Results 04/04/21 04/04/21 04/04/21 Range/Units 08:30 08:30 11:15 WBC 3.7 L (4.5-11.0) K/mm3 RBC 4.24 (3.65-5.03) M/mm3 Hgb 12.6 (10.1-14.3) gm/dl Hct 37.9 (30.3-42.9) % MCV 89 (79-97) fl MCH 30 (28-32) pg MCHC 33 (30-34) % RDW 15.6 H (13.2-15.2) % Plt Count 220 (140-440) K/mm3 Lymph % (Auto) 34.4 (13.4-35.0) % Bland % (Auto) 6.6 (0.0-7.3) % Eos % (Auto) 6.0 H (0.0-4.3) % Baso % (Auto) 0.5 (0.0-1.8) % Lymph # (Auto) 1.3 (1.2-5.4) K/mm3 Bland # (Auto) 0.2 (0.0-0.8) K/mm3 Eos # (Auto) 0.2 (0.0-0.4) K/mm3 Baso # (Auto) 0.0 (0.0-0.1) K/mm3 Seg Neutrophils % 52.5 (40.0-70.0) % Seg Neutrophils # 1.9 (1.8-7.7) K/mm3 Sodium 137 (137-145) mmol/L Potassium 4.1 (3.6-5.0) mmol/L Chloride 101.2 (98-107) mmol/L Carbon Dioxide 26 (22-30) mmol/L Anion Gap 14 mmol/L BUN 8 (7-17) mg/dL Creatinine 0.6 (0.6-1.2) mg/dL Estimated GFR > 60 ml/min BUN/Creatinine Ratio 13 % Glucose 80 (65-100) mg/dL Calcium 9.8 (8.4-10.2) mg/dL Total Bilirubin 0.30 (0.1-1.2) mg/dL AST 12 (5-40) units/L ALT < 5 L (7-56) units/L Alkaline Phosphatase 53 (35-129) units/L Troponin T < 0.010 (0.00-0.029) ng/mL Total Protein 7.1 (6.3-8.2) g/dL Albumin 4.4 (3.9-5) g/dL Albumin/Globulin Ratio 1.6 % Lipase 21 (13-60) units/L Urine Color Yellow (Yellow) Urine Turbidity Slightly-cloudy (Clear) Urine pH 5.0 (5.0-7.0) Ur Specific [place] 1.032 H (1.003-1.030) Urine Protein <15 mg/dl (Negative) mg/dL Urine Glucose (UA) Neg (Negative) mg/dL Urine Ketones 20 (Negative) mg/dL Urine Blood Neg (Negative) Urine Nitrite Neg (Negative) Urine Bilirubin Neg (Negative) Urine Urobilinogen < 2.0 (<2.0) mg/dL Ur Leukocyte Esterase Sm (Negative) Urine WBC (Auto) 11.0 H (0.0-6.0) /HPF Urine RBC (Auto) 5.0 (0.0-6.0) /HPF U Epithel Cells (Auto) 21.0 H (0-13.0) /HPF Urine Mucus 2+ /HPF Urine Opiates Screen Urine Methadone Screen Ur Barbiturates Screen Ur Phencyclidine Scrn Ur Amphetamines Screen U Benzodiazepines Scrn Urine Cocaine Screen U Marijuana (THC) Screen Drugs of Abuse Note Group A Strep Rapid (Negative) 04/04/21 04/04/21 Range/Units 11:15 12:07 WBC (4.5-11.0) K/mm3 RBC (3.65-5.03) M/mm3 Hgb (10.1-14.3) gm/dl Hct (30.3-42.9) % MCV (79-97) fl MCH (28-32) pg MCHC (30-34) % RDW (13.2-15.2) % Plt Count (140-440) K/mm3 Lymph % (Auto) (13.4-35.0) % Bland % (Auto) (0.0-7.3) % Eos % (Auto) (0.0-4.3) % Baso % (Auto) (0.0-1.8) % Lymph # (Auto) (1.2-5.4) K/mm3 Bland # (Auto) (0.0-0.8) K/mm3 Eos # (Auto) (0.0-0.4) K/mm3 Baso # (Auto) (0.0-0.1) K/mm3 Seg Neutrophils % (40.0-70.0) % Seg Neutrophils # (1.8-7.7) K/mm3 Sodium (137-145) mmol/L Potassium (3.6-5.0) mmol/L Chloride (98-107) mmol/L Carbon Dioxide (22-30) mmol/L Anion Gap mmol/L BUN (7-17) mg/dL Creatinine (0.6-1.2) mg/dL Estimated GFR ml/min BUN/Creatinine Ratio % Glucose (65-100) mg/dL Calcium (8.4-10.2) mg/dL Total Bilirubin (0.1-1.2) mg/dL AST (5-40) units/L ALT (7-56) units/L Alkaline Phosphatase (35-129) units/L Troponin T (0.00-0.029) ng/mL Total Protein (6.3-8.2) g/dL Albumin (3.9-5) g/dL Albumin/Globulin Ratio % Lipase (13-60) units/L Urine Color (Yellow) Urine Turbidity (Clear) Urine pH (5.0-7.0) Ur Specific Junior (1.003-1.030) Urine Protein (Negative) mg/dL Urine Glucose (UA) (Negative) mg/dL Urine Ketones (Negative) mg/dL Urine Blood (Negative) Urine Nitrite (Negative) Urine Bilirubin (Negative) Urine Urobilinogen (<2.0) mg/dL Ur Leukocyte Esterase (Negative) Urine WBC (Auto) (0.0-6.0) /HPF Urine RBC (Auto) (0.0-6.0) /HPF U Epithel Cells (Auto) (0-13.0) /HPF Urine Mucus /HPF Urine Opiates Screen Negative Urine Methadone Screen Negative Ur Barbiturates Screen Negative Ur Phencyclidine Scrn Negative Ur Amphetamines Screen Negative U Benzodiazepines Scrn Negative Urine Cocaine Screen Negative U Marijuana (THC) Screen Negative Drugs of Abuse Note Disclamer Group A Strep Rapid Negative (Negative)
[2021-04-04 09:27] LABS: Albumin 4.4 g/dL (3.9-5); Blood Urea Nitrogen 8 mg/dL (7-17); Calcium 9.8 mg/dL (8.4-10.2); Hemolysis Index 11
[2021-04-04 09:32] LABS: Alanine Aminotransferase < 5 units/L (7-56); BUN/Creatinine Ratio 13
[2021-04-04] MEDS ORDERED: MORPHINE 4 MG/1 ML INJ ONE (10:10)
[2021-04-04 11:28] LABS: Bilirubin,Urine NEG (Negative); Blood,Urine NEG (Negative); Color,Urine Yellow (Yellow); Mucus,Urine 2+ /HPF; Protein,Urine <15 mg/dL mg/dL (Negative); Urobilinogen,Urine < 2.0 mg/dL (<2.0)
[2021-04-04 11:33] LABS: Amphetamine Screen,Urine Negative; Benzodiazepines Screen,Urine Negative; Cannabinoid Screen,Urine Negative; Cocaine Screen,Urine Negative; Methadone Screen,Urine Negative; Opiate Screen,Urine Negative
--- NOTE | 2021-04-04 12:55 | Consultation ---
History of Present Illness - Reason for Consult Consult date: 04/04/21 - History of Present Illness [facility] Consult Note # Demographics Consult Type: General Neurology Patient Location: Emergency Room First Name: Joi Last Name: Binh Date of : 1965 Age: 55 Gender: Female Time of Initial Page ( Time): 04/04/2021, 12:28 Time of Return Call (Eastern Time): 04/04/2021, 12:28 # HPI History: 55yo woman who presents with headache and neck pain. She states this has been intermittent for the lst 3-4 days. She states that her neck and spine are painful to move. She has been in the ED for similar symptoms on the , as well as the of this month. Turning her head or bending over do not necessarily make her symptoms worse. Associated Symptoms: headache light sensitivity neck pain sound sensitivity vision changes # Scores Time of exam and NIHSS ( Time): 04/04/2021, 12:48 Level of Consciousness 1a: [0] = Alert; keenly responsive LOC Questions 1b: [0] = Answers both questions correctly LOC Commands 1c: [0] = Performs both tasks correctly Best Gaze 2: [0] = Normal Visual 3: [0] = No visual loss Facial Palsy 4: [0] = Normal symmetrical movements Motor Arm Left 5a: [0] = No drift Motor Arm Right 5b: [0] = No drift Motor Leg Left 6a: [0] = No drift Motor Leg Right 6b: [0] = No drift Limb Ataxia 7: [0] = Absent Sensory 8: [0] = Normal Best Language 9: [0] = No aphasia Dysarthria 10: [0] = Normal Extinction and Inattention 11: [0] = No abnormality NIHSS Total: 0 # Exam Vitals: vital signs reviewed # ROS Constitutional: no chills fever # Data Head CT: no bleed CTA Head: no large vessel occlusion CTA Neck: patent vessels # Assessment Impression: Headache worrisome for meningitic component # Plan Imaging: (urgency: routine): MRI Brain with AND without contrast MRI C spine Diagnostic Test: lumbar puncture: cell count, protein, glucose Other: I have discussed my recommendations with the referring provider Disposition: admit Medications and Allergies Allergies Allergy/AdvReac Type Severity Reaction Status Date / Time ondansetron Allergy Unknown Verified 04/04/21 11:19 [From Zofran (as hydrochloride)] pantoprazole [From Protonix] Allergy Unknown Verified 04/04/21 11:19 Penicillins Allergy Unknown Verified 04/04/21 11:19 promethazine [From Phenergan] Allergy Unknown Verified 04/04/21 11:19 Sulfa (Sulfonamide Allergy Unknown Verified 04/04/21 11:19 Antibiotics) Home Medications Medication Instructions Recorded Confirmed Last Taken Type Albuterol Mdi (or & Nicu Only) 2 puff IH QID PRN #1 inhalation 08/31/18 Unknown Rx [ProAir HFA Inhaler] predniSONE [Deltasone] 20 mg PO QDAY #5 tab 08/31/18 Unknown Rx Famotidine [Pepcid] 20 mg PO BID #30 tablet 12/09/20 Unknown Rx Docusate Sodium [Colace] 100 mg PO BID PRN #20 capsule 12/16/20 Unknown Rx Chlorhexidine Mouthwash [Peridex] 118 ml MM BID 7 Days #1 bottle 01/03/21 Unknown Rx Acetaminophen [Non-Aspirin Extra 500 mg PO Q6HR PRN #30 tablet 02/16/21 Unknown Rx Strength] Ibuprofen [Motrin] 600 mg PO Q8H PRN #30 tablet 02/16/21 Unknown Rx Morphine Sulfate [Morphine Sulfate 7.5 mg PO Q6HR PRN #10 tablet 02/16/21 Un known Rx IR] oxyCODONE /ACETAMINOPHEN [Percocet 1 tab PO Q6HR PRN #10 tablet 02/17/21 Unkno wn Rx 5/325] traMADoL [Ultram] 50 mg PO Q6HR PRN #5 tablet 03/26/21 Unknown Rx Clindamycin [Clindamycin CAP] 150 mg PO Q8HR #30 capsule 04/03/21 Unknown Rx Ketorolac [Toradol] 10 mg PO Q6H PRN #15 tablet 04/03/21 Unknown Rx Active Meds: Active Medications Lidocaine HCl (Lidocaine (4%) 40 Mg/Ml Topical Soln 50 Ml Bottle) 2.5 ml TP ONCE HOWARD Stop: 04/04/21 15:00 Exam - Constitutional Vitals: Temp Pulse Resp BP Pulse Ox 98.7 F 67 16 108/67 98 04/04/21 11:22 04/04/21 11:22 04/04/21 11:22 04/04/21 11:22 04/04/21 04:40 Results - Labs CBC & Chem 7: 04/04/21 08:30 04/04/21 08:30 Labs: Abnormal lab results 04/04/21 04/04/21 04/04/21 Range/Units 08:30 08:30 11:15 WBC 3.7 L (4.5-11.0) K/mm3 RDW 15.6 H (13.2-15.2) % Eos % (Auto) 6.0 H (0.0-4.3) % ALT < 5 L (7-56) units/L Ur Specific [place] 1.032 H (1.003-1.030) Urine WBC (Auto) 11.0 H (0.0-6.0) /HPF U Epithel Cells (Auto) 21.0 H (0-13.0) /HPF
[2021-04-04] MEDS ORDERED: fentaNYL 100 MCG/2 ML INJ IV ONE (12:56)
[2021-04-04] MEDS ORDERED: LIDOCAINE (4%) 40 MG/ML TOPICAL SOLN 50 ML BOTTLE TP SCH (13:00)
[2021-04-04] MEDS: LIDOCAINE 2%/EPINEPHRINE 1:100,000 VIAL (20 ML) INFILTRATI ONE ×2 (13:33→13:34)
--- NOTE | 2021-04-04 14:10 | Cat Scan Report ---
CTA HEAD AND NECK HISTORY:YOO/neck pain/blurry vision/ataxia COMPARISON: No relevant prior imaging study available. TECHNIQUE: CTA of the neck and head is performed after IV contrast. 3-D/MIP reformats were postproces sed. Percentage stenosis is determined by direct quantitative measurements of diseased internal [place] artery diameter compared with normal distal internal carotid artery reference segments or by crit eria similar to NASCET where applicable. All CT scans at this location are performed using CT dose re duction for ALARA by means of automated exposure control. FINDINGS: CTA NECK: Cervical vertebral arteries: No occlusion or hemodynamically significant stenosis. Common Carotid arteries: No occlusion or hemodynamically significant stenosis. Internal carotid arteries: No occlusion or hemodynamically significant stenosis. CTA HEAD: Intracranial vertebral arteries: No occlusion or significant stenosis. Basilar artery: No occlusion or significant stenosis. Posterior cerebral arteries: No occlusion or significant stenosis. Intracranial internal carotid arteries: No occlusion or significant stenosis. Mild nonobstructive rajeev cified plaques are present bilaterally. Anterior cerebral arteries: No occlusion or significant stenosis. Middle cerebral arteries: No occlusion or significant stenosis. No aneurysm. Additional findings: None. IMPRESSION: 1. CTA NECK: No occlusion or significant stenosis of the carotid or vertebral arteries. 2. CTA HEAD: No occlusion or significant stenosis of the major intracranial vasculature. Signer Name: Monroe Roberts MD Signed: 04/04/2021 2:05 PM Workstation Name: [id number]
[2021-04-04] MEDS ORDERED: LIDOCAINE (2%) 20 MG/1 ML VIAL 20 ML MDV INFILTRATI ONE (15:14)
[2021-04-04 16:13] LABS: Glucose,CSF 47 mg/dL
[2021-04-04 17:45] LABS: Appearance,CSF Clear
[2021-04-04 17:57] LABS: Total Cells Counted 83 /mm3
[2021-04-04 18:11] LABS: Basophils CSF 0 %; Red Blood Cell,CSF 4 /mm3 (0-0); White Blood Cell,CSF 22 /mm3 (1-10)
[2021-04-04] MEDS ORDERED: cefTRIAXone/NS 2 GM/100 ML 2 GM/100 ML BAG IV ONE (21:29)
[2021-04-04] MEDS ORDERED: MAGNESIUM HYDROXIDE (MOM) ORAL LIQD UDC PO PRN (21:44)
[2021-04-04] MEDS ORDERED: ACETAMINOPHEN 325 MG TAB PO PRN (21:44)
--- NOTE | 2021-04-04 21:56 | History and Physical Report ---
History of Present Illness Date of examination: 04/04/21 Date of admission: 04/04/21 21:29 Chief complaint: Headache Dizziness Neck pain History of present illness: 85-year-old -Polish female with significant past medical history of anemia, GI bleed and GERD presents to the emergency room today complaining of headache and neck pain. Headache and neck pain has been intermittent over the past 3 to 4 days. She also indicates that she has history of chronic back pain. This is about the third visit to the emergency room with similar symptoms over the past few days. She indicates she has had some fever at home and has also has some dizziness. She denies any nausea vomiting, no abdominal pain, no diarrhea, no dysuria but indicates that her urine at gotten darker over the past few days. Patient denies any recent travel and no sick contacts. Denies any contact with anyone with COVID-19. Neck pain and headache is worse upon movement. She has also become increasingly sensitive to light. Patient was evaluated by the tele-neurologist and the recommendation is to to have lumbar puncture and also to check MRI of the brain with and without contras t. Further work-up in the emergency room reveals mild UTI. Patient has been commenced on empiric IV antibiotics for possible meningitis and or UTI. Past History Past Medical History: anemia, other (History of GI bleed in the past) Past Surgical History: Other (Tonsillectomy, hemorrhoid surgery, fissure repair) Social history: no significant social history Family history: no significant family history Medications and Allergies Allergies Allergy/AdvReac Type Severity Reaction Status Date / Time ondansetron Allergy Unknown Verified 04/04/21 11:19 [From Zofran (as hydrochloride)] pantoprazole [From Protonix] Allergy Unknown Verified 04/04/21 11:19 Penicillins Allergy Unknown Verified 04/04/21 11:19 promethazine [From Phenergan] Allergy Unknown Verified 04/04/21 11:19 Sulfa (Sulfonamide Allergy Unknown Verified 04/04/21 11:19 Antibiotics) Home Medications Medication Instructions Recorded Confirmed Last Taken Type Albuterol Mdi (or & Nicu Only) 2 puff IH QID PRN #1 inhalation 08/31/18 Unknown Rx [ProAir HFA Inhaler] predniSONE [Deltasone] 20 mg PO QDAY #5 tab 08/31/18 Unknown Rx Famotidine [Pepcid] 20 mg PO BID #30 tablet 12/09/20 Unknown Rx Docusate Sodium [Colace] 100 mg PO BID PRN #20 capsule 12/16/20 Unknown Rx Chlorhexidine Mouthwash [Peridex] 118 ml MM BID 7 Days #1 bottle 01/03/21 Unknown Rx Acetaminophen [Non-Aspirin Extra 500 mg PO Q6HR PRN #30 tablet 02/16/21 Unknown Rx Strength] Ibuprofen [Motrin] 600 mg PO Q8H PRN #30 tablet 02/16/21 Unknown Rx Morphine Sulfate [Morphine Sulfate 7.5 mg PO Q6HR PRN #10 tablet 02/16/21 Unknown Rx IR] oxyCODONE /ACETAMINOPHEN [Percocet 1 tab PO Q6HR PRN #10 tablet 02/17/21 Unknown Rx 5/325] traMADoL [Ultram] 50 mg PO Q6HR PRN #5 tablet 03/26/21 Unknown Rx Clindamycin [Clindamycin CAP] 150 mg PO Q8HR #30 capsule 04/03/21 Unknown Rx Ketorolac [Toradol] 10 mg PO Q6H PRN #15 tablet 04/03/21 Unknown Rx Active Meds: Active Medications Acetaminophen (Acetaminophen 325 Mg Tab) 650 mg PO Q4H PRN PRN Reason: Pain MILD(1-3)/Fever >100.5/YOO Heparin Sodium (Porcine) (Heparin 5,000 Unit/1 Ml Vial) 5,000 unit SUB-Q Q8HR HOWARD Ceftriaxone Sodium (Rocephin/Ns 2 Gm/100 Ml) 2 gm in 100 mls @ 200 mls/hr IV ONCE ONE; Protocol Stop: 04/04/21 21:58 Ceftriaxone Sodium (Rocephin/Ns 2 Gm/100 Ml) 2 gm in 100 mls @ 200 mls/hr IV Q24H HOWARD; Protocol Magnesium Hydroxide (Magnesium Hydroxide (Mom) Oral Liqd Udc) 30 ml PO Q4H PRN PRN Reason: Constipation Morphine Sulfate (Morphine 2 Mg/1 Ml Inj) 2 mg IV Q4H PRN PRN Reason: Pain, Moderate (4-6) Sodium Chloride (Sodium Chloride 0.9% 10 Ml Flush Syringe) 10 ml IV BID HOWARD Sodium Chloride (Sodium Chloride 0.9% 10 Ml Flush Syringe) 10 ml IV PRN PRN PRN Reason: LINE FLUSH Review of Systems Constitutional: fever, no chills Ears, nose, mouth and throat: no nasal congestion, no sore throat Cardiovascular: no chest pain, no palpitations Respiratory: no cough, no shortness of breath Gastrointestinal: no nausea, no vomiting, no diarrhea Genitourinary Female: no pelvic pain, no flank pain, no dysuria, no hematuria Musculoskeletal: no neck pain, no low back pain Integumentary: no rash, no pruritis Neurological: headaches, other (Dizziness) Psychiatric: no anxiety, no depression Endocrine: no polyphagia, no polydipsia, no polyuria, no nocturia Exam - Constitutional Vitals: Temp Pulse Resp BP Pulse Ox 98.9 F 72 18 96/63 98 04/04/21 20:07 04/04/21 20:07 04/04/21 20:07 04/04/21 20:07 04/04/21 20:07 General appearance: Present: no acute distress, well-nourished - EENT Eyes: Present: PERRL, EOM intact. Absent: scleral icterus ENT: hearing intact, clear oral mucosa, dentition normal - Neck Neck: Present: supple, normal ROM - Respiratory Respiratory effort: normal Respiratory: bilateral: CTA - Cardiovascular Rhythm: regular Heart Sounds: Present: S1 & S2. Absent: gallop, systolic murmur, diastolic murmur, rub, click - Extremities Extremities: no ischemia, pulses intact, pulses symmetrical, No edema, normal temperature, normal color, Full ROM Peripheral Pulses: within normal limits - Abdominal General gastrointestinal: Present: soft, non-tender, non-distended, normal bowel sounds. Absent: mass - Integumentary Integumentary: Present: clear, warm, dry. Absent: rash - Musculoskeletal Musculoskeletal: strength equal bilaterally - Psychiatric Psychiatric: appropriate mood/affect, intact judgment & insight, memory intact, cooperative - Neurologic Neurologic: CNII-XII intact, no focal deficits, moves all extremities, other (Mild Neck stiffness.) HEART Score - HEART Score Troponin: Troponin T < 0.010 ng/mL (0.00-0.029) 04/04/21 08:30 Results - Labs CBC & Chem 7: 04/04/21 08:30 04/04/21 08:30 Labs: Abnormal lab results 04/04/21 04/04/21 04/04/21 Range/Units 08:30 08:30 11:15 WBC 3.7 L (4.5-11.0) K/mm3 RDW 15.6 H (13.2-15.2) % Eos % (Auto) 6.0 H (0.0-4.3) % ALT < 5 L (7-56) units/L Ur Specific [place] 1.032 H (1.003-1.030) Urine WBC (Auto) 11.0 H (0.0-6.0) /HPF U Epithel Cells (Auto) 21.0 H (0-13.0) /HPF Assessment and Plan - Patient Problems (1) Headache Current Visit: Yes Status: Acute Plan to address problem: Etiology unclear. Patient placed on analgesic medication. Lumbar puncture done in the emergency room has been unremarkable. Neurologist and recommended MRI of the brain and also the C-spine. We requested a neurology follow-up. Patient is being covered with empiric IV antibiotics for possible meningitis. (2) UTI (urinary tract infection) Current Visit: Yes Status: Acute Plan to address problem: We will continue on empiric IV antibiotics. (3) DVT prophylaxis Current Visit: Yes Status: Acute Plan to address problem: Patient placed on subcutaneous heparin. (4) Full code status Current Visit: Yes Status: Acute Plan to address problem: Patient is full code.
[2021-04-04] MEDS ORDERED: VANCOMYCIN PHARMACY TO DOSE IV SCH (22:00)
[2021-04-04] MEDS: HEPARIN 5,000 UNIT/1 ML VIAL SUB-Q SCH (23:42)
[2021-04-05] MEDS ORDERED: VANCOMYCIN/NS 1 GM/250 ML 1 GM/250 ML BAG IV ONE
[2021-04-05] MEDS: traMADol 50 MG TAB PO PRN ×2 (01:40→10:45)
[2021-04-05] MEDS: MORPHINE 2 MG/1 ML INJ IV PRN ×3 (03:46→16:20)
[2021-04-05] MEDS: HEPARIN 5,000 UNIT/1 ML VIAL SUB-Q SCH ×3 (05:40→21:15)
[2021-04-05 08:38] LABS: Basophils # (Auto) 0.1 K/mm3 (0.0-0.1); Basophils % (Auto) 2.6 % (0.0-1.8); Eosinophils # (Auto) 0.2 K/mm3 (0.0-0.4); Eosinophils % (Auto) 4.7 % (0.0-4.3); Hematocrit 32.6 % (30.3-42.9); Hemoglobin 11.1 gm/dl (10.1-14.3); Lymphocytes # (Auto) 1.3 K/mm3 (1.2-5.4); Lymphocytes % (Auto) 37.7 % (13.4-35.0); Mean Corpuscular HGB Conc 34 % (30-34); Mean Corpuscular Volume 89 fl (79-97); Monocytes # (Auto) 0.2 K/mm3 (0.0-0.8); Platelet Count 187 K/mm3 (140-440); Red Blood Count 3.68 M/mm3 (3.65-5.03); Red Cell Distribution Width 15.2 % (13.2-15.2)
[2021-04-05 08:45] LABS: INR 0.97 (0.87-1.13)
[2021-04-05] MEDS ORDERED: cefTRIAXone/NS 2 GM/100 ML 2 GM/100 ML BAG IV SCH (10:00)
[2021-04-05] MEDS ORDERED: VANCOMYCIN 750 MG in SODIUM CHLORIDE 0.9% 250ML 250 ML IV SCH (10:00)
[2021-04-05 10:25] LABS: BUN/Creatinine Ratio TNR; Blood Urea Nitrogen TNR mg/dL (7-17); Calcium TNR mg/dL (8.4-10.2)
--- NOTE | 2021-04-05 11:02 | Consultation ---
History of Present Illness - Reason for Consult Consult date: 04/05/21 meningitis rule out Requesting physician: VIOLETTA HEWITT - History of Present Illness The patient is a 55-year-old female with no significant past medical history other than GI bleed was admitted to the hospital with headache and neck pain along with intermittent low-grade fevers. Also having some light sensitivity. Underwent lumbar puncture with CSF findings of twenty-two WBC, four RBC, 83% lymphocytes, glucose forty-seven, total protein twenty. Group A rapid strep negative, tox screen negative, UA with contaminated specimen. Blood work did not reveal any leukocytosis, showed leukopenia. CTA head and neck were unremarkable. Denies any urinary symptoms. Not sexually active for last 3 years. No recent HIV test. Did not receive the COVID-19 vaccine. Also has not recently gotten tested for COVID-19. Review of Systems: Per HPI Past History Past Medical History: anemia, other (History of GI bleed in the past) Past Surgical History: Other (Tonsillectomy, hemorrhoid surgery, fissure repair) Social history: no significant social history Family history: no significant family history Medications and Allergies Allergies Allergy/AdvReac Type Severity Reaction Status Date / Time ondansetron Allergy Unknown Verified 04/04/21 11:19 [From Zofran (as hydrochloride)] pantoprazole [From Protonix] Allergy Unknown Verified 04/04/21 11:19 Penicillins Allergy Unknown Verified 04/04/21 11:19 promethazine [From Phenergan] Allergy Unknown Verified 04/04/21 11:19 Sulfa (Sulfonamide Allergy Unknown Verified 04/04/21 11:19 Antibiotics) Home Medications Medication Instructions Recorded Confirmed Last Taken Type No Known Home Medications [No 04/05/21 04/05/21 Unknown History Reported Home Medications] Active Meds: Active Medications Acetaminophen (Acetaminophen 325 Mg Tab) 650 mg PO Q4H PRN PRN Reason: Pain MILD(1-3)/Fever >100.5/YOO Heparin Sodium (Porcine) (Heparin 5,000 Unit/1 Ml Vial) 5,000 unit SUB-Q Q8HR HOWARD Last Admin: 04/05/21 05:40 Dose: 5,000 unit Documented by: Ceftriaxone Sodium (Rocephin/Ns 2 Gm/100 Ml) 2 gm in 100 mls @ 200 mls/hr IV Q24HR HOWARD; Protocol Last Admin: 04/05/21 10:13 Dose: 200 mls/hr Documented by: Vancomycin HCl 750 mg/ Sodium (Chloride) 265 mls @ 166.667 mls/hr IV Q12H [facility] Last Admin: 04/05/21 10:12 Dose: 166.667 mls/hr Documented by: Magnesium Hydroxide (Magnesium Hydroxide (Mom) Oral Liqd Udc) 30 ml PO Q4H PRN PRN Reason: Constipation Morphine Sulfate (Morphine 2 Mg/1 Ml Inj) 2 mg IV Q4H PRN PRN Reason: Pain, Moderate (4-6) Last Admin: 04/05/21 03:46 Dose: 2 mg Documented by: Sodium Chloride (Sodium Chloride 0.9% 10 Ml Flush Syringe) 10 ml IV BID [facility] Last Admin: 04/05/21 10:13 Dose: 10 ml Documented by: Sodium Chloride (Sodium Chloride 0.9% 10 Ml Flush Syringe) 10 ml IV PRN PRN PRN Reason: LINE FLUSH Tramadol HCl (Tramadol 50 Mg Tab) 50 mg PO Q6H PRN PRN Reason: Pain, Moderate (4-6) Last Admin: 04/05/21 01:40 Dose: 50 mg Documented by: Physical Examination - Physical Exam Narrative exam: Physical Exam: Constitutional: Alert, cooperative. No acute distress Head, Ears, Nose: Normocephalic, atraumatic. External ears, nose normal Eyes: Conjunctivae/corneas clear. No icterus. No ptosis. Neck: Supple, no meningeal signs Cardiovascular: S1, S2 normal. Respiratory: Good air entry, clear to auscultation bilaterally GI: Soft, non-tender; bowel sounds normal. No peritoneal signs Musculoskeletal: No pedal edema, no cyanosis. Skin: No rash or abscess Hem/Lymphatic: No palpable cervical or supraclavicular nodes. No lymphangitis Psych: Mood ok. Affect normal Neurological: Awake, alert, oriented. No gross abnormality - Constitutional Vitals: Vital Signs Temp Pulse Resp BP Pulse Ox 98.7 F 70 17 110/61 99 04/05/21 00:03 04/05/21 00:03 04/05/21 04:16 04/05/21 00:03 04/05/21 00:03 Temperature -Last 24 Hours Temperature 98.7 F Temperature 98.9 F Temperature 98.7 F Results - Labs CBC & Chem 7: 04/05/21 08:22 04/05/21 08:22 Labs: Abnormal lab results 04/04/21 04/05/21 Range/Units 11:15 08:22 WBC 3.3 L (4.5-11.0) K/mm3 Lymph % (Auto) 37.7 H (13.4-35.0) % Eos % (Auto) 4.7 H (0.0-4.3) % Baso % (Auto) 2.6 H (0.0-1.8) % Seg Neutrophils # 1.6 L (1.8-7.7) K/mm3 Ur Specific [place] 1.032 H (1.003-1.030) Urine WBC (Auto) 11.0 H (0.0-6.0) /HPF U Epithel Cells (Auto) 21.0 H (0-13.0) /HPF Assessment and Plan Cultures: 04/04/2021 CSF culture: In process. Gram stain negative A/P: 55-year-old female with no significant past medical history other than GI bleed was admitted to the hospital with headache and neck pain: #Headache, neck pain, low-grade intermittent fevers: UA specimen contaminated. No leucocytosis, no fever here. CSF with mild pleocytosis, lymphocytic. #Leukopenia Recs: Very low suspicion for acute bacterial meningitis, Ceftriaxone, vancomycin discontinued COVID-19 rule out, PCR ordered RPR, RSV screen ordered HIV test ordered, verbal consent obtained from patient Jerod Mayfield MD, FACP [facility] ([facility] O: [phone] F: [phone]
--- NOTE | 2021-04-05 13:20 | Progress Note ---
Assessment and Plan Assessment and plan: 85-year-old -[place] female with significant past medical history of anemia, GI bleed and GERD presents to the emergency room today complaining of headache and neck pain. Headache and neck pain has been intermittent over the past 3 to 4 days. She also indicates that she has history of chronic back pain. This is about the third visit to the emergency room with similar symptoms over the past few days. She indicates she has had some fever at home and has also has some dizziness. She denies any nausea vomiting, no abdominal pain, no diarrhea, no dysuria but indicates that her urine at gotten darker over the past few days. Patient denies any recent travel and no sick contacts. Denies any contact with anyone with COVID-19. Neck pain and headache is worse upon movement. She has also become increasingly sensitive to light. Patient was evaluated by the tele-neurologist and the recommendation is to to have lumbar puncture and also to check MRI of the brain with and without contrast. Further work-up in the emergency room reveals mild UTI. Patient has been commenced on empiric IV antibiotics for possible meningitis and or UTI. 04/05 Patient reports that she is homeless by choice as she does not want to stay in her home wit [employer] minded people. She tells me that she is well educated.. She is all over the place with her history but tells me that she had some gastric procedures done in and and was in the hospital for 15 days there about at [facility]. We will try to obtain records for this We will start the patient on Robaxin for muscle pain Continue current work up per ID, await COVID TESTING Nausea medication Follow results of lumbar puncture. (1) Headache Current Visit: Yes Status: Acute Plan to address problem: Etiology unclear. Patient placed on analgesic medication. Lumbar puncture done in the emergency room has been unremarkable. Neurologist and recommended MRI of the brain and also the C-spine. We requested a neurology follow-up. Patient is being covered with empiric IV antibiotics for possible meningitis. (2) UTI (urinary tract infection) Current Visit: Yes Status: Acute Plan to address problem: We will continue on empiric IV antibiotics. (3) Gastroenteritis (4)DVT prophylaxis Current Visit: Yes Status: Acute Plan to address problem: Patient placed on subcutaneous heparin. (4) Full code status Current Visit: Yes Status: Acute Plan to address problem: Patient is full code. History Interval history: Patient seen and examined reports nausea with still headache. She complains of jaw pain and ear pain and headache 7 out of 10 intensity. Hospitalist Physical - Physical exam Narrative exam: VITAL SIGNS: Reviewed. GENERAL: The patient appears normally developed, Vital signs as documented. HEAD: No signs of head trauma. EYES: Pupils are equal. Extraocular motions intact. EARS: Hearing grossly intact. MOUTH: Oropharynx is normal. NECK: No adenopathy, no JVD. She does not want me touching her neck. CHEST: Chest with clear breath sounds bilaterally. No wheezes, rales, or rhonchi. CARDIAC: Regular rate and rhythm. S1 and S2, without murmurs, gallops, or rubs. VASCULAR: No Edema. Peripheral pulses normal and equal in all extremities. ABDOMEN: Soft, non tender and non distended. No rebound or guarding, and no masses palpated. Bowel Sounds normal. MUSCULOSKELETAL: Good range of motion of all major joints. Extremities without clubbing, cyanosis or edema. NEUROLOGIC EXAM: Alert and oriented x 3 No focal sensory or strength deficits. Speech normal. Follows commands. PSYCHIATRIC: Mood normal. SKIN: Multiple tattoos detail exam as documented in skin assessment - Constitutional Vitals: Temp Pulse Resp BP Pulse Ox 98.7 F 70 17 110/61 99 04/05/21 00:03 04/05/21 00:03 04/05/21 04:16 04/05/21 00:03 04/05/21 00:03 General appearance: Present: no acute distress, well-nourished HEART Score - HEART Score Troponin: Troponin T < 0.010 ng/mL (0.00-0.029) 04/04/21 08:30 Results - Labs CBC & Chem 7: 04/05/21 08:22 04/05/21 08:22 Labs: Laboratory Last Values WBC 3.3 K/mm3 (4.5-11.0) L 04/05/21 08:22 RBC 3.68 M/mm3 (3.65-5.03) 04/05/21 08:22 Hgb 11.1 gm/dl (10.1-14.3) 04/05/21 08:22 Hct 32.6 % (30.3-42.9) 04/05/21 08:22 MCV 89 fl (79-97) 04/05/21 08:22 MCH 30 pg (28-32) 04/05/21 08:22 MCHC 34 % (30-34) 04/05/21 08:22 RDW 15.2 % (13.2-15.2) 04/05/21 08:22 Plt Count 187 K/mm3 (140-440) 04/05/21 08:22 Lymph % (Auto) 37.7 % (13.4-35.0) H 04/05/21 08:22 [place] % (Auto) 7.0 % (0.0-7.3) 04/05/21 08:22 Eos % (Auto) 4.7 % (0.0-4.3) H 04/05/21 08:22 Baso % (Auto) 2.6 % (0.0-1.8) H 04/05/21 08:22 Lymph # (Auto) 1.3 K/mm3 (1.2-5.4) 04/05/21 08:22 [place] # (Auto) 0.2 K/mm3 (0.0-0.8) 04/05/21 08:22 Eos # (Auto) 0.2 K/mm3 (0.0-0.4) 04/05/21 08:22 Baso # (Auto) 0.1 K/mm3 (0.0-0.1) 04/05/21 08:22 Seg Neutrophils % 48.0 % (40.0-70.0) 04/05/21 08:22 Seg Neutrophils # 1.6 K/mm3 (1.8-7.7) L 04/05/21 08:22 PT 13.5 Sec. (12.2-14.9) 04/05/21 08:22 INR 0.97 (0.87-1.13) 04/05/21 08:22 Sodium TNR 04/05/21 08:22 Potassium TNR 04/05/21 08:22 Chloride TNR 04/05/21 08:22 Carbon Dioxide TNR 04/05/21 08:22 Anion Gap TNR 04/05/21 08:22 BUN TNR 04/05/21 08:22 Creatinine TNR 04/05/21 08:22 Estimated GFR TNR 04/05/21 08:22 BUN/Creatinine Ratio TNR 04/05/21 08:22 Glucose TNR 04/05/21 08:22 Calcium TNR 04/05/21 08:22 Total Bilirubin 0.30 mg/dL (0.1-1.2) 04/04/21 08:30 AST 12 units/L (5-40) 04/04/21 08:30 ALT < 5 units/L (7-56) L 04/04/21 08:30 Alkaline Phosphatase 53 units/L (35-129) 04/04/21 08:30 Troponin T < 0.010 ng/mL (0.00-0.029) 04/04/21 08:30 Total Protein 7.1 g/dL (6.3-8.2) 04/04/21 08:30 Albumin 4.4 g/dL (3.9-5) 04/04/21 08:30 Albumin/Globulin Ratio 1.6 % 04/04/21 08:30 Lipase 21 units/L (13-60) 04/04/21 08:30 Urine Color Yellow (Yellow) 04/04/21 11:15 Urine Turbidity Slightly-cloudy (Clear) 04/04/21 11:15 Urine pH 5.0 (5.0-7.0) 04/04/21 11:15 Ur Specific [place] 1.032 (1.003-1.030) H 04/04/21 11:15 Urine Protein <15 mg/dl mg/dL (Negative) 04/04/21 11:15 Urine Glucose (UA) Neg mg/dL (Negative) 04/04/21 11:15 Urine Ketones 20 mg/dL (Negative) 04/04/21 11:15 Urine Blood Neg (Negative) 04/04/21 11:15 Urine Nitrite Neg (Negative) 04/04/21 11:15 Urine Bilirubin Neg (Negative) 04/04/21 11:15 Urine Urobilinogen < 2.0 mg/dL (<2.0) 04/04/21 11:15 Ur Leukocyte Esterase Sm (Negative) 04/04/21 11:15 Urine WBC (Auto) 11.0 /HPF (0.0-6.0) H 04/04/21 11:15 Urine RBC (Auto) 5.0 /HPF (0.0-6.0) 04/04/21 11:15 U Epithel Cells (Auto) 21.0 /HPF (0-13.0) H 04/04/21 11:15 Urine Mucus 2+ /HPF 04/04/21 11:15 CSF Appearance Clear 04/04/21 14:48 CSF Color Colorless 04/04/21 14:48 CSF WBC 22 /mm3 (1-10) 04/04/21 14:48 CSF RBC 4 /mm3 (0-0) 04/04/21 14:48 CSF Seg Neutrophils 4.8 % (0-6) 04/04/21 14:48 CSF Lymphocytes % 83.1 % (40-80) 04/04/21 14:48 CSF Reactive Lymphs 0 % 04/04/21 14:48 CSF Monocytes % 12.0 % (15-45) 04/04/21 14:48 CSF Eosinophils % 0 % 04/04/21 14:48 CSF Basophils 0 % 04/04/21 14:48 CSF Pathologist Review C 04/04/21 14:48 CSF Glucose 47 mg/dL 04/04/21 14:48 CSF Total Protein 20 mg/dL 04/04/21 14:48 Urine Opiates Screen Negative 04/04/21 11:15 Urine Methadone Screen Negative 04/04/21 11:15 Ur Barbiturates Screen Negative 04/04/21 11:15 Ur Phencyclidine Scrn Negative 04/04/21 11:15 Ur Amphetamines Screen Negative 04/04/21 11:15 U Benzodiazepines Scrn Negative 04/04/21 11:15 Urine Cocaine Screen Negative 04/04/21 11:15 U Marijuana (THC) Screen Negative 04/04/21 11:15 Drugs of Abuse Note Disclamer 04/04/21 11:15 Group A Strep Rapid Negative (Negative) 04/04/21 12:07 Microbiology: Microbiology 04/04/21 14:48 Cerebral Spinal Fluid CSF Culture - Preliminary 04/04/21 08:11 Stool Stool Occult Blood (MINERVA) - Final Mehta/IV: Voiding Method Toilet Active Medications - Current Medications Current Medications: Generic Name Dose Route Start Last Admin Trade Name Freq PRN Reason Stop Dose Admin Acetaminophen 650 mg 04/04/21 21:44 Acetaminophen 325 Mg Tab PO Q4H PRN Pain MILD(1-3)/Fever >100.5/YOO Heparin Sodium (Porcine) 5,000 unit 04/04/21 22:00 04/05/21 05:40 Heparin 5,000 Unit/1 Ml Vial SUB-Q 5,000 unit Q8HR HOWARD Administration Magnesium Hydroxide 30 ml 04/04/21 21:44 Magnesium Hydroxide (Mom) Oral Liqd Udc PO Q4H PRN Constipation Morphine Sulfate 2 mg 04/04/21 21:44 04/05/21 03:46 Morphine 2 Mg/1 Ml Inj IV 2 mg Q4H PRN Administration Pain, Moderate (4-6) Sodium Chloride 10 ml 04/04/21 22:00 04/05/21 10:13 Sodium Chloride 0.9% 10 Ml Flush Syringe IV 10 ml BID HOWARD Administration Sodium Chloride 10 ml 04/04/21 21:44 Sodium Chloride 0.9% 10 Ml Flush Syringe IV PRN PRN LINE FLUSH Tramadol HCl 50 mg 04/05/21 00:44 04/05/21 01:40 Tramadol 50 Mg Tab PO 50 mg Q6H PRN Administration Pain, Moderate (4-6) Nutrition/Malnutrition Assess - Dietary Evaluation Nutrition/Malnutrition Findings: Nutrition Notes Start: 04/05/21 12:20 Freq: Status: Active Protocol: Document 04/05/21 12:20 CW (Rec: 04/05/21 12:30 CW [id number]) Nutrition Notes Need for Assessment generated from: MST Initial or Follow up Assessment Other Pertinent Diagnosis UTI, GERD, Current Diet Regular Labs/Tests 04/04 reviewed Pertinent Medications reviewed Height 5 ft 5 in Weight 53.977 kg Usual Body Weight 62.7 kg [place] Body Weight (kg) 56.81 BMI 19.8 Intake Prior to Admission Poor Weight change and time frame 16% x 3 months per pt. Weight Status Appropriate Subjective/Other Information RN screen for MST/ Pt reports recent weight loss d/t environmental events. Food preferences noted. Pt reports an allergy to tomatoes. Pt states she did not eat lunch d /t dislike of the meal. Kitchen alerted and requested that another meal be sent up. Kike score of 20. Skin is intact. Pt wants to try Ensure BID; Chocolate is preferred. Burn Absent Trauma Absent GI Symptoms None Food Allergy Yes Current % PO Poor (25-49%) Minimum of two criteria Yes Energy Intake (severe) < or equal to 50% Estimated Energy Requirement > or equal to 5 days Interpretation of Weight Loss (non- 7.5% in 3 months severe) Reduced Enrollment Processor Strength Measurably Reduced (severe) #1 Nutrition Diagnosis Malnutrition Etiology loss of appetite As Evidenced by Signs and Symptoms 16% weight loss x 90 days, bilateral weak book binder strength, PO intake <50% of EER x >5 days Is patient on ventilator? No Is Patient Ambulatory and/or Out of Bed No REE-([facility]-confined to bed) [phone] Calculation Used for Recommendations [facility] Additional Notes protein needs: 65- 81g (1.2 - 1.5g/kgBW) fluid needs: 1 ml/kcal Nutrition Intervention Change Diet Order: Continue current diet as ordered Add Supplement/Snack (indicate name/kcal Ensure Enlive BID /protein ) Provides kCal: 700 Provides Protein (gm) 40 Goal #1 Meet at least 75% of kcal and protein needs via PO Anticipated Discharge Needs: Regular diet with ONS PRN Follow-Up By: 04/08/21 Additional Comments F/U for ONS tolerance
[2021-04-05 14:16] LABS: BUN/Creatinine Ratio 13; Blood Urea Nitrogen 8 mg/dL (7-17); Calcium 8.4 mg/dL (8.4-10.2); Hemolysis Index 6
[2021-04-05] MEDS ORDERED: LORazepam 2 MG/ML VIAL IV ONE (16:23)
[2021-04-05] MEDS ORDERED: diazePAM 5 MG TAB PO ONE (17:30)
--- NOTE | 2021-04-05 19:22 | Magnetic Resonance Report ---
MR brain wo con INDICATION / CLINICAL INFORMATION: 55 years Female; Dizziness, Headache, Neck pain. TECHNIQUE: Multiplanar, multisequence MR images of the brain were obtained. COMPARISON: None available. FINDINGS: BRAIN / INTRACRANIAL CONTENTS: The motion degrades the image quality despite using a fast acquisition sequences. However, there are a few scattered small hyperintense foci involving cerebral white matte r on the FLAIR sequences most consistent with microvascular angiopathy. The diffusion imaging reveals no evidence of acute infarction. The ventricular system is within normal limits in size and configuration. No extra-axial fluid collec tions or significant mass effect is identified. CRANIOCERVICAL JUNCTION: No significant abnormality. VASCULAR FLOW-VOIDS: No significant abnormality. ORBITS: No significant abnormality of visualized orbits. SINUSES / MASTOIDS: There appear to be milder inflammatory changes within the left sphenoid sinus at. Scattered fluid signal is also noted within the inferior left mastoid air cells. There is a defect i nvolving anterior nasal septum which may be postsurgical and correlation would be needed. ADDITIONAL FINDINGS: None. IMPRESSION: 1. There is mild microvascular angiopathy as described without evidence of recent infarction. 2. There is an effusion within the left mastoid air cells at. Mild inflammatory changes are also note d within the left sphenoid sinus. Signer Name: Jesus Denney MD Signed: 04/05/2021 7:17 PM Workstation Name: [id number]
--- NOTE | 2021-04-05 19:25 | Magnetic Resonance Report ---
MR cervical spine wo con INDICATION / CLINICAL INFORMATION: 55 years Female; headache, neck pain. TECHNIQUE: Multisequence, multiplanar images of the cervical spine were obtained. COMPARISON: None available. FINDINGS: CRANIOCERVICAL JUNCTION:No significant abnormality. ALIGNMENT: There is no significant spondylolisthesis involving cervical spine. VERTEBRAE:There is no edema of the cervical vertebral bodies. VISUALIZED SPINAL CORD: The motion degrades the image quality. However, the cervical spinal cord appe ars to demonstrate appropriate signal intensity on the combination of sequences. NSEUT-BU-FEJBO ANALYSIS: C2-3: No significant abnormality. C3-4: There is no disc protrusion or significant central spinal stenosis. There is mild left foramina l narrowing. C4-5: There is a slight central disc bulge which effaces the subarachnoid space without direct cord c ompression. There is also mild left foraminal narrowing. C5-6: There is a more broad-based slight disc bulge without direct cord compression at. There is mild to moderate left foraminal narrowing. C6-7: The broad-based central disc bulge effaces the subarachnoid space without significant direct co rd compression at. There appears be mild left foraminal narrowing. C7-T1: No significant abnormality. PARASPINAL SOFT TISSUES: No significant abnormality. ADDITIONAL FINDINGS: No epidural collections are identified. IMPRESSION: 1. The study is limited by motion. However, there are multilevel disc bulges and neural foraminal nadir rowing involving the cervical spine as detailed above. Signer Name: Jesus Denney MD Signed: 04/05/2021 7:21 PM Workstation Name: [id number]
[2021-04-05] MEDS ORDERED: AMITRIPTYLINE 10 MG TAB PO SCH (22:00)
[2021-04-06] MEDS: MORPHINE 2 MG/1 ML INJ IV PRN (02:02)
[2021-04-06] MEDS: HEPARIN 5,000 UNIT/1 ML VIAL SUB-Q SCH ×2 (06:04→14:38)
--- NOTE | 2021-04-06 09:10 | Discharge Summary ---
Providers - Providers Date of Admission: 04/04/21 21:29 Attending physician: CARTER CORTES MD 04/04/21 21:44 Consult to Physician [CONS] Routine Comment: Consulting Provider: JOSS JOSE Physician Instructions: Reason For Exam: Dizziness, headache, Neck pain 04/04/21 21:48 Consult to Physician [CONS] Routine Comment: Consulting Provider: MARIA GRIFFITH Physician Instructions: Reason For Exam: Dizziness, headache,neck pain. R/O meningitis Primary care physician: HELPER MARBLE FINISHER Hospitalization Reason for admission: Headache Condition: Good Hospital course: 85-year-old -Malagasy female with significant past medical history of anemia, GI bleed and GERD presents to the emergency room today complaining of headache and neck pain. Headache and neck pain has been intermittent over the past 3 to 4 days. She also indicates that she has history of chronic back pain. This is about the third visit to the emergency room with similar symptoms over the past few days. She indicates she has had some fever at home and has also has some dizziness. She denies any nausea vomiting, no abdominal pain, no diarrhea, no dysuria but indicates that her urine at gotten darker over the past few days. Patient denies any recent travel and no sick contacts. Denies any contact with anyone with COVID-19. Neck pain and headache is worse upon movement. She has also become increasingly sensitive to light. Patient was evaluated by the tele-neurologist and the recommendation is to to have lumbar puncture and also to check MRI of the brain with and without contrast. Further work-up in the emergency room reveals mild UTI. Patient has been commenced on empiric IV antibiotics for possible meningitis and or UTI. 04/05 Patient reports that she is homeless by choice as she does not want to stay in her home wit PS DEPT. [employer] minded people. She tells me that she is well educated.. She is all over the place with her history but tells me that she had some gastric procedures done in and and was in the hospital for 15 days there about at [facility]. We will try to obtain records for this We will start the patient on Robaxin for muscle pain Continue current work up per ID, await COVID TESTING Nausea medication Follow results of lumbar puncture. 04/06:Refusing treatments, Only wants morphine, No clinical findings. Recommended outpatient Neurology evaluation as she may be a candidate for Botox shots for management of chronic headache and possible migraine. OK to discharge on 5 days of nitrofurontin for UTI IF NO OTHER ID intervention. will also give amytriptylin and robaxan for TMG type pain Also recommend to follow with a dentist Counselling provided She refuses to answer questions about photosensitivity with the headaches. There is no other neurological sequela noted (1) Headache Current Visit: Yes Status: Acute Plan to address problem: Etiology unclear. Patient placed on analgesic medication. Lumbar puncture done in the emergency room has been unremarkable. Neurologist and recommended MRI of the brain and also the C-spine. We requested a neurology follow-up. Patient is being covered with empiric IV antibiotics for possible meningitis. (2) UTI (urinary tract infection) Current Visit: Yes Status: Acute Plan to address problem: We will continue on empiric IV antibiotics. (3) Gastroenteritis (4)DVT prophylaxis Current Visit: Yes Status: Acute Plan to address problem: Patient placed on subcutaneous heparin. Disposition: TO HOME OR SELFCARE Final Discharge Diagnosis (Prints w/discharge instructions): migraine headache Time spent for discharge: 35 mins Core Measure Documentation - Palliative Care Palliative Care/ Comfort Measures: Not Applicable - Core Measures Any of the following diagnoses?: none Exam - Physical Exam Narrative exam: VITAL SIGNS: Reviewed. GENERAL: The patient appears normally developed, Vital signs as documented. HEAD: No signs of head trauma. EYES: Pupils are equal. Extraocular motions intact. EARS: Hearing grossly intact. MOUTH: Oropharynx is normal. NECK: No adenopathy, no JVD. She does not want me touching her neck. CHEST: Chest with clear breath sounds bilaterally. No wheezes, rales, or rhonchi. CARDIAC: Regular rate and rhythm. S1 and S2, without murmurs, gallops, or rubs. VASCULAR: No Edema. Peripheral pulses normal and equal in all extremities. ABDOMEN: Soft, non tender and non distended. No rebound or guarding, and no masses palpated. Bowel Sounds normal. MUSCULOSKELETAL: Good range of motion of all major joints. Extremities without clubbing, cyanosis or edema. NEUROLOGIC EXAM: Alert and oriented x 3 No focal sensory or strength deficits. Speech normal. Follows commands. PSYCHIATRIC: Mood normal. SKIN: Multiple tattoos detail exam as documented in skin assessment - Constitutional Vitals: Temp Pulse Resp BP Pulse Ox 98.3 F 83 18 105/46 97 04/06/21 03:46 04/06/21 03:46 04/06/21 03:46 04/06/21 03:46 04/06/21 03:46 Plan Plan of Treatment: Must be complaint with medication. Must follow neurology AND A DENTISIT Follow up with: PRIMARY MD LURDES [Primary Care Provider] - 3-5 Days DILIP CHOI MD [Staff Physician] - 7 Days Prescriptions: Amitriptyline [Elavil] 10 mg PO QHS #30 tablet Nitrofurantoin Macrocrystal [Nitrofurantoin] 100 mg PO DAILY #5 capsule methOCARBAMOL [Robaxin TAB] 500 mg PO BID #20 tablet
[2021-04-06] MEDS ORDERED: AMITRIPTYLINE 10 MG TAB PO ONE (10:00)
[2021-04-06] MEDS ORDERED: SUMAtriptan SUCCINATE 50 MG TAB PO PRN (10:58)
[2021-04-06] MEDS ORDERED: FLU VACC QUAD 2020-2021 (6 months +)/PF 60 0.5 ML SYRINGE IM ONE (12:00)
[2021-04-06 13:25] VITALS: BP 115/68
--- NOTE | 2021-04-06 14:29 | Progress Note ---
Assessment and Plan Cultures: 04/04/2021 CSF culture: In process. Gram stain negative A/P: 55-year-old female with no significant past medical history other than GI bleed was admitted to the hospital with headache and neck pain: #Headache, neck pain, low-grade intermittent fevers: UA specimen contaminated. No leucocytosis, no fever here. CSF with mild pleocytosis, lymphocytic. Refused MRI. #Leukopenia Recs: afebrile, off antibiotics. HIV and RPR negative COVID-19 PCR is still pending, but remains on room air. OK for discharge from ID standpoint Jerod Mayfield MD, FACP [facility] O: [phone] F: [phone] Subjective Date of service: 04/06/21 Interval history: No fever. Refused MRI. Objective - Exam Narrative Exam: Physical Exam: Constitutional: Alert, cooperative. No acute distress Head, Ears, Nose: Normocephalic, atraumatic. External ears, nose normal Eyes: Conjunctivae/corneas clear. No icterus. No ptosis. Neck: Supple, no meningeal signs Cardiovascular: S1, S2 normal. Respiratory: Good air entry, clear to auscultation bilaterally GI: Soft, non-tender; bowel sounds normal. No peritoneal signs Musculoskeletal: No pedal edema, no cyanosis. Skin: No rash or abscess Hem/Lymphatic: No palpable cervical or supraclavicular nodes. No lymphangitis Psych: Mood ok. Affect normal Neurological: Awake, alert, oriented. No gross abnormality - Constitutional Vitals: Vital Signs Temp Pulse Resp BP Pulse Ox 98.7 F 70 20 115/68 99 04/06/21 12:42 04/06/21 12:42 04/06/21 12:42 04/06/21 12:42 04/06/21 12:42 Temperature -Last 24 Hours Temperature 98.7 F Temperature 98.3 F Temperature 98.5 F - Labs CBC & Chem 7: 04/05/21 08:22 04/05/21 13:29
--- NOTE | 2021-04-07 07:42 | Cat Scan Report ---
CT CERVICAL SPINE: 04/04/2021 INDICATION / CLINICAL INFORMATION: Severe neck pain. COMPARISON: None available. FINDINGS: CT images of the cervical spine were obtained. Images are evaluated in the axial, coronal, and sagitt al planes. There is no evidence of acute abnormality. Vertebral body alignment is well preserved. There is no evidence of canal or foraminal narrowing. LEVEL BY LEVEL ANALYSIS: . CRANIOCERVICAL JUNCTION: Unremarkable. PARASPINAL STRUCTURES: Unremarkable Small amount of pulmonary parenchymal scarring is noted at the lung apices bilaterally. IMPRESSION: No significant abnormality. All CT scans at this location are performed using dose reduction to ALARA by means of automated expos ure control. Signer Name: Rene Hayden MD Signed: 04/04/2021 9:18 AM Workstation Name: [id number]
--- NOTE | 2021-04-07 08:02 | Fluoroscopy Report ---
LUMBAR PUNCTURE WITH FLUOROSCOPIC GUIDANCE INDICATION: neck pain/headache/blind tap failed COMPARISON: No relevant prior imaging study available. TECHNIQUE/FINDINGS: Written, informed consent was obtained from the patient prior to the procedure after discussion of th e procedure risks, benefits and alternatives. The patient was positioned prone on the fluoroscopy tab le. A timeout was performed confirming the patient's name, date of and the procedure to be perf ormed. The skin of the lower back was prepped and draped in the usual sterile fashion. The soft tissues at t he anticipated needle entry site at L5-S1 were anesthetized with 1% lidocaine. A 5 Bangladeshi 22-gauge sp inal needle was advanced through the anesthetized tissues and into the spinal canal. Spontaneous flow of unremarkable appearing CSF was noted from the needle hub. 12 cc of CSF was obtained for laboratory testing. The needle was removed and manual pressure was held until hemostasis was attained. The skin was clean sed and a sterile dressing was applied. The patient tolerated the procedure well without immediate co mplications and left the radiology department in good condition. Total fluoroscopic time: 1 Number of fluoroscopic images: 1.5 minutes IMPRESSION: Technically successful lumbar puncture with fluoroscopic guidance. Signer Name: Monroe Roberts MD Signed: 04/07/2021 7:57 AM Workstation Name: [id number]
[2021-04-07] MEDS ORDERED: FLU VACC QUAD 2020-2021 (6 months +)/PF 60 0.5 ML SYRINGE IM ONE (12:00)
--- NOTE | 2021-04-10 11:16 | Electrocardiograph Report ---
[facility] Test Date: 2021-04-04 Test Time: 10:42:16 Pat Name: AMERICO GALINDO Department: Room: A367 Gender: F Fancy Packer: [id number] : 1965 Requested By: XIMENA WEBB Order Number: [id number] Reading MD: Lexii Cid Measurements Intervals [place] Rate: 62 P: 72 KS: 190 QRS: 7 QRSD: 64 T: 7 QT: 431 QTc: 440 Interpretive Statements Sinus rhythm No previous ECG available for comparison Electronically Signed On 04-10-2021 11:16:04 EDT by Lexii Cid
== END 2021-04-06 16:51 | disposition home or self-care (01) ==
LOC: ED 04:24 → 3A 21:29
PROVIDERS: ADMIT Internal Medicine Geriatric Medicine; ATTEND Internal Medicine
DX: R51.9 Headache, unspecified (principal); Z20.822 Contact with and (suspected) exposure to COVID-19; M54.2 Cervicalgia; R42 Dizziness and giddiness; F17.210 Nicotine dependence, cigarettes, uncomplicated; K52.9 Noninfective gastroenteritis and colitis, unspecified; N39.0 Urinary tract infection, site not specified; D64.9 Anemia, unspecified; D72.819 Decreased white blood cell count, unspecified; Z90.49 Acquired absence of other specified parts of digestive tract; Z79.899 Other long term (current) drug therapy; Z98.890 Other specified postprocedural states
CPT/HCPCS: 36415; 62270; 62328; 70450; 70496; 70498; 70551; 72125; 72141; 80048; 80053; 80307; 81001; 82271; 82947; 83690; 84145; 84160; 84484; 85025; 85610; 86140; 86592; 87086; 87116; 87430; 87806; 89051; 93005; 96361; 96365; 96366; 96367; 96368; 96372; 96375; 96376; 99285; 99406; G0378; J0696; J1200; J1644; J2270; J2765; J3010; J3370; J7030; J7050; Q9967; U0003

== ENCOUNTER 2021-05-11 17:57 | Emergency (ER) | payer SELFPAY | END 2021-05-11 23:37 | disposition left against medical advice (07) | LOC: ED 17:57 | DX: R10.9 Unspecified abdominal pain (principal); Z53.21 Procedure and treatment not carried out due to patient leaving prior to being seen by health care provider ==

== ENCOUNTER 2021-05-12 04:40 | Emergency (ER) | payer SELFPAY ==
[2021-05-12 05:54] LABS: Bacteria,Urine 1+ /HPF (Negative); Mucus,Urine 3+ /HPF
[2021-05-12 05:55] LABS: Bilirubin,Urine NEG (Negative); Blood,Urine SM (Negative); Color,Urine Yellow (Yellow); Urobilinogen,Urine < 2.0 mg/dL (<2.0)
== END 2021-05-12 08:00 ==
LOC: ED 04:40
DX: K92.1 Melena (principal); Z53.21 Procedure and treatment not carried out due to patient leaving prior to being seen by health care provider
CPT/HCPCS: 81001

== ENCOUNTER 2021-06-17 05:18 | Emergency (ER) | payer SELFPAY | END 2021-06-17 10:00 | LOC: ED 05:18 | DX: N93.9 Abnormal uterine and vaginal bleeding, unspecified (principal); Z53.21 Procedure and treatment not carried out due to patient leaving prior to being seen by health care provider ==

== ENCOUNTER 2021-07-28 19:15 | Emergency (ER) | payer SELFPAY ==
--- NOTE | 2021-07-28 20:21 | Emergency Department Report ---
Chief Complaint: Extremity Injury, Lower Stated Complaint: RT FOOT PAIN Time Seen by Provider: 07/28/21 20:20 - HPI History of Present Illness: 56-year-old -[place] female presents to the emergency room complaining of right foot pain. Patient states that happened 2 weeks ago when she was in the hospital she started having pain. Patient denies any injury to her foot. 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 She states that she has been taking Tylenol and ibuprofen for pain. She reports that in the last 3 days is gotten worse. Patient denies any trauma to her foot. She is states that it hurts when she walks and the ball of her foot. Patient comes in with all her belongings. - Exam Physical Exam: General: Awake, very combative argumentative demanding Neck: Supple. Full range of motion intact. Cardiovascular: Normal peripheral perfusion. Pulmonary: No respiratory distress. Patient is speaking normally without use of accessory muscles. Neurological: No facial asymmetry. Speech is clear. Follows commands. Patient is alert and oriented. Musculoskeletal: Full range of motion, no crepitus. nonerythematous no edema test appreciated. Able to bear weight and ambulate without difficulty. Distal neurovascular and motor/sensory function is intact. Psych: Combative threatening yelling MSE screening note: Focused history and physical exam performed. Due to findings the following was ordered: 56-year-old -[place] female presents to the emergency room complaining of right foot pain. Patient states that happened 2 weeks ago when she was in the hospital she started having pain. Patient denies any injury to her foot. 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 She states that she has been taking Tylenol and ibuprofen for pain. She reports that in the last 3 days is gotten worse. Patient denies any trauma to her foot. She is states that it hurts when she walks and the ball of her foot. Patient comes in with all her belongings. ED Disposition for MSE Clinical Impression: Right foot pain Disposition: 01 HOME / SELF CARE / HOMELESS Is pt being admited?: No Does the pt Need Aspirin: No Condition: Stable Instructions: Foot Pain Additional Instructions: Recommend to take Tylenol or ibuprofen as needed for pain management. Follow-up with your primary care provider.
[2021-07-28 23:01] VITALS: BP 127/73
== END 2021-07-28 20:30 | disposition home or self-care (01) ==
LOC: ED 19:15
DX: M79.671 Pain in right foot (principal)
CPT/HCPCS: 99281

== ENCOUNTER 2022-01-04 11:08 | Emergency (ER) | payer SELFPAY ==
[2022-01-04] MEDS ORDERED: traMADol 50 MG TAB PO ONE (11:41)
[2022-01-04] MEDS ORDERED: ACETAMINOPHEN 500 MG TAB PO ONE (11:41)
--- NOTE | 2022-01-04 11:43 | Emergency Department Report ---
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, presenting to the ER with a complaint of paralumbar and sacroiliac pain since July. She has been taking ibuprofen [id number]. Has not followed up with an outpatient primary care physician, and has not really participated in physical therapy, or rehabilitation. Patient denies dysuria, fever, chills, abdominal pain, makes no complaint of extremity weakness or numbness, bladder or bowel retention incontinence or saddle anesthesia. Has been taking ibuprofen [id number] at home. -: month(s) Location: back Severity scale (0 -10): 10 Quality: aching Consistency: constant Improves with: rest Worsens with: movement - Related Data Previous Rx's Medication Instructions Recorded Last Taken Type Amitriptyline [Elavil] 10 mg PO QHS #30 tablet 04/06/21 Unknown Rx Nitrofurantoin Macrocrystal 100 mg PO DAILY #5 capsule 04/06/21 Unknown Rx [Nitrofurantoin] Acetaminophen [Non-Aspirin Extra 500 mg PO Q6HR PRN #30 tablet 01/04/22 Unknown Rx Strength] Ibuprofen [Motrin] 200 mg PO Q6H PRN #30 tablet 01/04/22 Unknown Rx Allergies Allergy/AdvReac Type Severity Reaction Status Date / Time ondansetron Allergy Unknown Verified 07/28/21 19:32 [From Zofran (as hydrochloride)] pantoprazole [From Protonix] Allergy Unknown Verified 07/28/21 19:32 Penicillins Allergy Unknown Verified 07/28/21 19:32 promethazine [From Phenergan] Allergy Unknown Verified 07/28/21 19:32 Sulfa (Sulfonamide Allergy Unknown Verified 07/28/21 19:32 Antibiotics) tomato Allergy Unknown Verified 07/28/21 19:32 ED Review of Systems ROS: Stated complaint: BACK PAIN Other details as noted in HPI Constitutional: denies: fever Eyes: denies: eye discharge ENT: denies: epistaxis Respiratory: denies: cough Cardiovascular: denies: chest pain Gastrointestinal: denies: abdominal pain Musculoskeletal: back pain, arthralgia Neurological: denies: weakness ED Past Medical Hx - Past Medical History Hx Congestive Heart Failure: No Hx Diabetes: No Hx GERD: Yes Hx Asthma: No Hx COPD: No Hx HIV: No Additional medical history: GI bleed, Anemia - Surgical History Additional Surgical History: tonsillectomy. hemmorhoids. fissure repair - Social History Smoking Status: Current Every Day Smoker Substance Use Type: None - Medications Home Medications: Home Medications Medication Instructions Recorded Confirmed Last Taken Type Amitriptyline [Elavil] 10 mg PO QHS #30 tablet 04/06/21 Unknown Rx Nitrofurantoin Macrocrystal 100 mg PO DAILY #5 capsule 04/06/21 Unknown Rx [Nitrofurantoin] Acetaminophen [Non-Aspirin Extra 500 mg PO Q6HR PRN #30 tablet 01/04/22 Unknown Rx Strength] Ibuprofen [Motrin] 200 mg PO Q6H PRN #30 tablet 01/04/22 Unknown Rx ED Physical Exam - General Limitations: No Limitations General appearance: alert, in no apparent distress - Head Head exam: Present: atraumatic, normocephalic - Eye Eye exam: Present: normal appearance, EOMI. Absent: nystagmus - ENT ENT exam: Present: normal exam, normal orophraynx, mucous membranes moist, normal external ear exam - Neck Neck exam: Present: normal inspection, full ROM. Absent: tenderness, meningismus - Respiratory Respiratory exam: Present: normal lung sounds bilaterally. Absent: respiratory distress, wheezes, rales, rhonchi, stridor, decreased breath sounds - Cardiovascular Cardiovascular Exam: Present: regular rate, normal rhythm, normal heart sounds. Absent: bradycardia, tachycardia, irregular rhythm, systolic murmur, diastolic murmur, rubs, gallop - GI/Abdominal GI/Abdominal exam: Present: soft. Absent: distended, tenderness, guarding, rebound, rigid, pulsatile mass - Extremities Exam Extremities exam: Present: normal inspection, full ROM, other (2+ pulses noted in the bilateral upper and lower extremities. There is no palpable cord. negative Homans sign. Muscular compartments are soft. The pelvis is stable.). Absent: calf tenderness - Back Exam Back exam: Present: normal inspection, full ROM, muscle spasm, paraspinal tenderness. Absent: CVA tenderness (R), CVA tenderness (L) - Neurological Exam Neurological exam: Present: alert, oriented X3, normal gait, reflexes normal, other (No facial droop. Tongue midline. Extraocular movements intact bilaterally. Facial sensation intact to light touch in V1, V2, V3 distribution bilaterally. 5 and a 5 strength in 4 extremities. Sensation intact to light touch in 4 extremities.). Absent: motor sensory deficit - Psychiatric Psychiatric exam: Present: normal affect, normal mood - Skin Skin exam: Present: warm, dry, intact, normal color. Absent: rash ED Course Vital Signs 01/04/22 11:13 Temperature 98.3 F Pulse Rate 67 Respiratory 18 Rate Blood Pressure 112/73 [Right] O2 Sat by Pulse 100 Oximetry ED Medical Decision Making - Lab Data Vital Signs 01/04/22 11:13 Temperature 98.3 F Pulse Rate 67 Respiratory 18 Rate Blood Pressure 112/73 [Right] O2 Sat by Pulse 100 Oximetry - Radiology Data Radiology results: pending, report reviewed, image reviewed Lumbar spine-2 views INDICATION: Lower back pain and sacroiliac pain. COMPARISON: None. IMPRESSION: Grade 1 anterolisthesis of L4 on L5. Mild lower lumbar discogenic DJD and moderate facet arthropathy. No acute osseous or soft tissue abnormality. Signer Name: Rainer Preston MD Signed: 01/04/2022 11:11 AM Workstation Name: [id number] - Medical Decision Making Differential diagnosis, including but not limited to: Arthritis, DJD, sacroiliitis, deconditioning Assessment and plan: 56-year-old female presenting with lower back pain since July. She is neurovascularly intact with appropriate reflexes, ambulatory with a steady gait, and no pulsatile abdominal mass. Patient has not followed up with a primary care doctor, and has not participated in rehabilitation or physical therapy. Patient educated as to the natural history of mechanical back pain. Patient also presented with resources to follow-up with spine surgery as an outpatient for evaluation for physical therapy and rehabilitation; provided patient with [facility] information paperwork. Patient expressed surprise that x-ray was not ordered, and I educated the patient as to why did not feel like an x-ray was emergently indicated. The patient did not demand an x-ray, but indicated she would feel better and more reassured if an x-ray were ordered. Again discussed why we did not feel like an x-ray would be emergently necessary in the emergency room, but nevertheless as per patient request and preference, have obtain x-ray of the elbow sacral spine, which demonstrates expected findings. Patient may be discharged with Tylenol, low-dose ibuprofen, she may follow-up with primary care, physiatry/rehabilitation, or spine physician. She is medicated here in the emergency room. Her presentation today does not appear to be consistent with an emergent condition. Critical care attestation.: If time is entered above; I have spent that time in minutes in the direct care of this critically ill patient, excluding procedure time. ED Disposition Clinical Impression: Lower back pain, DJD (degenerative joint disease), lumbar Disposition: HOME / SELF CARE / HOMELESS Is pt being admited?: No Does the pt Need Aspirin: No Condition: Stable Instructions: Back Exercises, [id number]-sl-Rfwe, Degenerative Disk Disease Additional Instructions: Patient may alternate ice packs and heat packs as needed for physical pain. Strongly advised that patient participate in rehabilitation/physical therapy to improve lower back pain, and lumbosacral DJD. Back pain like this will typically take weeks, months, or even years to improve. Physical therapy and rehabilitation will most likely afford the patient the best relief of symptoms and functional outcome. Avoid heavy lifting and strenuous physical activity. Patient may follow-up with a primary care doctor, orthopedist or spine physician such as those who have been listed on his discharge paperwork for outpatient follow-up and initiation of physical therapy. Patient may also contact her private insurer to inquire as to rehabilitation and physical therapy. Patient may take the prescribed pain medications as directed, make certain to take ibuprofen with food. Recommend follow-up with an outpatient primary care doctor, spine orthopedist or spine physician within the next 2 weeks. [facility] a local orthopedics group. [facility] is a local spine group. [facility] is a local primary care clinic. Please return to the emergency room right away with new pain, worsened pain, migration of pain, projectile vomiting, change in mental status, confusion, inability tolerate liquid feeds, new, worsened or different symptoms not present on the initial emergency room evaluation Referrals: [facility] [Provider Group] - 3-5 Days [facility] [Provider Group] - 3-5 Days [facility] [Provider Group] - 3-5 Days Forms: Work/School Release Form(ED)
--- NOTE | 2022-01-04 12:16 | XRay Report ---
Lumbar spine-2 views INDICATION: Lower back pain and sacroiliac pain. COMPARISON: None. IMPRESSION: Grade 1 anterolisthesis of L4 on L5. Mild lower lumbar discogenic DJD and moderate face t arthropathy. No acute osseous or soft tissue abnormality. Signer Name: Rainer Preston MD Signed: 01/04/2022 12:11 PM Workstation Name: [id number]
[2022-01-04 13:10] VITALS: BP 135/85
== END 2022-01-04 13:09 | disposition home or self-care (01) ==
LOC: ED 11:08
DX: M47.816 Spondylosis without myelopathy or radiculopathy, lumbar region (principal); M54.50 Low back pain, unspecified; M19.09 Primary osteoarthritis, other specified site; K21.9 Gastro-esophageal reflux disease without esophagitis; F17.200 Nicotine dependence, unspecified, uncomplicated; Z88.0 Allergy status to penicillin; Z88.2 Allergy status to sulfonamides; Z91.09 Other allergy status, other than to drugs and biological substances
CPT/HCPCS: 72100; 99283

== ENCOUNTER 2022-01-23 01:25 | Emergency (ER) | payer SELFPAY ==
[2022-01-23 02:38] LABS: Basophils % (Auto) 1.1 % (0.0-1.8); Eosinophils # (Auto) 0.1 K/mm3 (0.0-0.4); Eosinophils % (Auto) 3.1 % (0.0-4.3); Hematocrit 39.7 % (30.3-42.9); Lymphocytes # (Auto) 1.7 K/mm3 (1.2-5.4); Lymphocytes % (Auto) 49.5 % (13.4-35.0); Mean Corpuscular HGB Conc 33 % (30-34); Mean Corpuscular Volume 88 fl (79-97); Monocytes # (Auto) 0.2 K/mm3 (0.0-0.8); Monocytes % (Auto) 6.1 % (0.0-7.3); Platelet Count 193 K/mm3 (140-440); Red Cell Distribution Width 14.6 % (13.2-15.2)
[2022-01-23 02:59] LABS: Alanine Aminotransferase 5 units/L (7-56); Albumin 3.8 g/dL (3.9-5); Blood Urea Nitrogen 6 mg/dL (7-17); Calcium 8.9 mg/dL (8.4-10.2); Hemolysis Index 9
[2022-01-23 03:02] LABS: BUN/Creatinine Ratio 10
[2022-01-23 09:03] VITALS: BP 119/71
--- NOTE | 2022-01-23 09:34 | Event Note ---
ED Screening Note Date of service: 01/23/22 Time: 09:33 ED Screening Note: 56-year-old black female presents to the emergency department for evaluation of 1 week history of abdominal pain. She states that she is also had some blood in her stool for the last 2 days, in her mouth tastes like blood, and she has been spitting up some blood. Patient stopped provider in middle of interview and said that she would like to be seen back doctor so that she can be able to explain herself better. This initial assessment/diagnostic orders/clinical plan/treatment(s) is/are subject to change based on patients health status, clinical progression and re- assessment by fellow clinical providers in the ED. Further treatment and workup at subsequent clinical providers discretion. Patient/guardian urged not to elope from the ED as their condition may be serious if not clinically assessed and managed. Initial orders include:
--- NOTE | 2022-01-23 11:43 | Event Note ---
Date: 01/23/22 Documentation and records from prior evaluations are reviewed and appreciated. I also recall this patient having treated her in the past. This patient presented this morning, and refused to see the nurse practitioner. She demanded to see a physician. I accommodated this patient's request, and evaluated her as quickly as possible. Upon entering the patient's room, the patient states that she refuses to see me. I recommended a history and physical examination, to evaluate for the presence of a medically emergent condition. The patient is refusing intervention and evaluation at this time. Patient presents as awake, alert, oriented, sober, of sound mind, and exhibits decision-making capacity. Advised the patient of the risks of , disability, paralysis, permanent loss of quality of life with refusal for medical screening examination, or history and physical. At the moment, she is awake, speaking in full sentences, protecti ng her airway, hemodynamically stable, moving 4 extremities, and in no acute distress. The patient is further advised that she may return to the emergency room right away if and when she changes her mind about accepting a history and physical examination. Vital Signs 01/23/22 01/23/22 01:35 09:00 Temperature 97.7 F 97.8 F Pulse Rate 89 74 Respiratory 18 18 Rate Blood Pressure 131/83 Blood Pressure 119/71 [Right] O2 Sat by Pulse 99 100 Oximetry Lab Results 01/23/22 01/23/22 Range/Units 02:25 02:25 WBC 3.4 L (4.5-11.0) K/mm3 RBC 4.50 (3.65-5.03) M/mm3 Hgb 13.0 (10.1-14.3) gm/dl Hct 39.7 (30.3-42.9) % MCV 88 (79-97) fl MCH 29 (28-32) pg MCHC 33 (30-34) % RDW 14.6 (13.2-15.2) % Plt Count 193 (140-440) K/mm3 Lymph % (Auto) 49.5 H (13.4-35.0) % [place] % (Auto) 6.1 (0.0-7.3) % Eos % (Auto) 3.1 (0.0-4.3) % Baso % (Auto) 1.1 (0.0-1.8) % Lymph # (Auto) 1.7 (1.2-5.4) K/mm3 [place] # (Auto) 0.2 (0.0-0.8) K/mm3 Eos # (Auto) 0.1 (0.0-0.4) K/mm3 Baso # (Auto) 0.0 (0.0-0.1) K/mm3 Seg Neutrophils % 40.2 (40.0-70.0) % Seg Neutrophils # 1.4 L (1.8-7.7) K/mm3 Sodium 135 L (137-145) mmol/L Potassium 3.7 (3.6-5.0) mmol/L Chloride 100.7 (98-107) mmol/L Carbon Dioxide 23 (22-30) mmol/L Anion Gap 15 mmol/L BUN 6 L (7-17) mg/dL Creatinine 0.6 (0.6-1.2) mg/dL Estimated GFR > 60 ml/min BUN/Creatinine Ratio 10 % Glucose 91 (65-100) mg/dL Calcium 8.9 (8.4-10.2) mg/dL Total Bilirubin 0.30 (0.1-1.2) mg/dL AST 14 (5-40) units/L ALT 5 L (7-56) units/L Alkaline Phosphatase 57 (35-129) units/L Total Protein 7.1 (6.3-8.2) g/dL Albumin 3.8 L (3.9-5) g/dL Albumin/Globulin Ratio 1.2 %
== END 2022-01-23 12:44 | disposition left against medical advice (07) ==
LOC: ED 01:25
DX: K92.1 Melena (principal); R10.9 Unspecified abdominal pain; Z53.21 Procedure and treatment not carried out due to patient leaving prior to being seen by health care provider
CPT/HCPCS: 36415; 80053; 85025

== ENCOUNTER 2022-02-07 22:19 | Emergency (ER) | payer SELFPAY ==
[2022-02-07 23:00] VITALS: BP 102/53
== END 2022-02-08 01:40 | disposition left against medical advice (07) ==
LOC: ED 22:19
DX: R10.9 Unspecified abdominal pain (principal); Z53.21 Procedure and treatment not carried out due to patient leaving prior to being seen by health care provider

== ENCOUNTER 2022-02-21 01:33 | Emergency (ER) | payer SELFPAY ==
[2022-02-21 01:45] VITALS: BP 122/69
[2022-02-21] MEDS ORDERED: ACETAMINOPHEN 325 MG TAB PO ONE (07:01)
[2022-02-21] MEDS ORDERED: IBUPROFEN 400 MG TAB PO ONE (07:01)
--- NOTE | 2022-02-21 07:02 | Emergency Department Report ---
ED Lower Extremity HPI - General Chief Complaint: Extremity Injury, Lower Stated Complaint: RIGHT FOOT AND TOE PAIN Time Seen by Provider: 02/21/22 06:58 Source: patient, RN notes reviewed, old records reviewed Mode of arrival: Ambulatory Limitations: No Limitations - History of Present Illness Initial Comments: This patient is a 56-year-old female, presenting to the ER today with a complaint of nontraumatic right great toe pain. She denies additional injuries and complaints. MD Complaint: other (Right great toe pain) -: Gradual Injury: Toes: Right Type of Injury: unknown Severity: mild Improves With: rest Worsens With: movement, palpation - Related Data Previous Rx's Medication Instructions Recorded Last Taken Type Amitriptyline [Elavil] 10 mg PO QHS #30 tablet 04/06/21 Unknown Rx Nitrofurantoin Macrocrystal 100 mg PO DAILY #5 capsule 04/06/21 Unknown Rx [Nitrofurantoin] Ibuprofen [Motrin] 200 mg PO Q6H PRN #30 tablet 01/04/22 Unknown Rx Acetaminophen [Non-Aspirin Extra 500 mg PO Q6HR PRN #30 tablet 02/21/22 Unknown Rx Strength] Allergies Allergy/AdvReac Type Severity Reaction Status Date / Time ondansetron Allergy Unknown Verified 01/21/22 22:26 [From Zofran (as hydrochloride)] pantoprazole [From Protonix] Allergy Unknown Verified 01/21/22 22:26 Penicillins Allergy Unknown Verified 01/21/22 22:26 promethazine [From Phenergan] Allergy Unknown Verified 01/21/22 22:26 Sulfa (Sulfonamide Allergy Unknown Verified 01/21/22 22:26 Antibiotics) tomato Allergy Unknown Verified 01/21/22 22:26 ED Review of Systems ROS: Stated complaint: RIGHT FOOT AND TOE PAIN Other details as noted in HPI Musculoskeletal: arthralgia, myalgia ED Past Medical Hx - Past Medical History Hx Congestive Heart Failure: No Hx Diabetes: No Hx GERD: Yes Hx Asthma: No Hx COPD: No Hx HIV: No Additional medical history: GI bleed, Anemia - Surgical History Additional Surgical History: tonsillectomy. hemmorhoids. fissure repair - Social History Smoking Status: Never Smoker Substance Use Type: None - Medications Home Medications: Home Medications Medication Instructions Recorded Confirmed Last Taken Type Amitriptyline [Elavil] 10 mg PO QHS #30 tablet 04/06/21 Unknown Rx Nitrofurantoin Macrocrystal 100 mg PO DAILY #5 capsule 04/06/21 Unknown Rx [Nitrofurantoin] Ibuprofen [Motrin] 200 mg PO Q6H PRN #30 tablet 01/04/22 Unknown Rx Acetaminophen [Non-Aspirin Extra 500 mg PO Q6HR PRN #30 tablet 02/21/22 Unknown Rx Strength] ED Physical Exam - General Limitations: No Limitations General appearance: alert, in no apparent distress - Head Head exam: Present: atraumatic, normocephalic - Eye Eye exam: Present: normal appearance, EOMI. Absent: nystagmus - ENT ENT exam: Present: normal exam, normal orophraynx, mucous membranes moist, normal external ear exam - Neck Neck exam: Present: normal inspection, full ROM. Absent: tenderness, meningismus - Respiratory Respiratory exam: Present: normal lung sounds bilaterally. Absent: respiratory distress, wheezes, rales, rhonchi, stridor, decreased breath sounds - Cardiovascular Cardiovascular Exam: Present: regular rate, normal rhythm, normal heart sounds. Absent: bradycardia, tachycardia, irregular rhythm, systolic murmur, diastolic murmur, rubs, gallop - GI/Abdominal GI/Abdominal exam: Present: soft. Absent: distended, tenderness, guarding, rebound, rigid, pulsatile mass - Extremities Exam Extremities exam: Present: normal inspection, full ROM, tenderness (Point tenderness to the right great toe, without redness, pus, streaking. Compartments are soft.), other (2+ pulses noted in the bilateral upper and lower extremities. There is no palpable cord. negative Homans sign. Muscular compartments are soft. The pelvis is stable.). Absent: pedal edema, calf tenderness - Back Exam Back exam: Present: normal inspection, full ROM. Absent: tenderness, CVA tenderness (R), CVA tenderness (L), paraspinal tenderness, vertebral tenderness - Neurological Exam Neurological exam: Present: alert, other (No facial droop. Tongue midline. Extraocular movements intact bilaterally. Facial sensation intact to light touch in V1, V2, V3 distribution bilaterally. 5 and a 5 strength in 4 extremities. Sensation intact to light touch in 4 extremities.). Absent: motor sensory deficit - Psychiatric Psychiatric exam: Present: flat affect - Skin Skin exam: Present: warm, dry, intact, normal color. Absent: rash ED Course Vital Signs 02/21/22 01:42 Temperature 98.0 F Pulse Rate 64 Respiratory 18 Rate Blood Pressure 122/69 O2 Sat by Pulse 98 Oximetry ED Lower Extremity MDM - Lab Data Vital Signs 02/21/22 01:42 Temperature 98.0 F Pulse Rate 64 Respiratory 18 Rate Blood Pressure 122/69 O2 Sat by Pulse 98 Oximetry - Radiology Data Radiology results: pending - Medical Decision Making Differential diagnosis, including but not limited to: Sprain, strain, fracture, dislocation Assessment and plan: 56-year-old female, who is afebrile, with reassuring vital signs, with a benign and unremarkable physical examination, with a primary complaint of nontraumatic right great toe pain. There is no redness, pus, streaking. The muscular compartments are soft. External physical exam is benign and unremarkable with the exception of minimal toe tenderness. Patient declined x-ray. Even if this is a fracture or dislocation, roosevelt tape, weightbearing as tolerated. Therefore, weightbearing as tolerated, roosevelt tape, Tylenol for pain, follow-up with outpatient primary care or podiatry. Critical care attestation.: If time is entered above; I have spent that time in minutes in the direct care of this critically ill patient, excluding procedure time. ED Disposition Clinical Impression: Pain of right great toe Disposition: 01 HOME / SELF CARE / HOMELESS Is pt being admited?: No Does the pt Need Aspirin: No Condition: Stable Additional Instructions: Patient may alternate ice packs and heat packs to the right great toe as needed for pain control. May take [id number] Tylenol/acetaminophen as needed for physical pain. Wear good supporting footwear, and footwear that is not excessively tight. Weightbearing as tolerated, physical activities as tolerated, please follow-up with a primary care doctor or telemarketing agent within the next 2 weeks. Please return to the emergency room right away with new pain, worsened pain, migration of pain, projectile vomiting, change in mental status, confusion, inability tolerate liquid feeds, new, worsened or different symptoms not present on the initial emergency room evaluation Prescriptions: Acetaminophen [Non-Aspirin Extra Strength] 500 mg PO Q6HR PRN #30 tablet PRN Reason: Pain , Severe (7-10) Referrals: [facility] DPM [Staff Physician] - 3-5 Days [facility] [Provider Group] - 3-5 Days Forms: Work/School Release Form(ED)
== END 2022-02-21 07:36 | disposition home or self-care (01) ==
LOC: ED 01:33
DX: M79.674 Pain in right toe(s) (principal); K21.9 Gastro-esophageal reflux disease without esophagitis; Z90.89 Acquired absence of other organs; Z98.890 Other specified postprocedural states; Z79.899 Other long term (current) drug therapy; Z88.0 Allergy status to penicillin; Z88.8 Allergy status to other drugs, medicaments and biological substances
CPT/HCPCS: 99281

== ENCOUNTER 2022-03-03 20:51 | Inpatient (IN) | payer SELFPAY ==
[2022-03-03] MEDS ORDERED: SODIUM CHLORIDE 0.9% 1000 ML 1,000 ML IV ONE (21:31)
--- NOTE | 2022-03-03 21:38 | Emergency Department Report ---
ED Neuro Deficit HPI - General Chief Complaint: Neuro Symptoms/Deficit Stated Complaint: HEAD NECK AND CHEST PAIN Time Seen by Provider: 03/03/22 21:24 Source: patient Mode of arrival: Ambulatory Limitations: No Limitations - History of Present Illness Initial Comments: 56 yo F who present with generalized malaise for the last couple of days associated with gait imbalance and with blurred vision. Pt rated her headache as center of her headache radiated to posterior neck. Patient denies any upper or lower limb weakness. No other modifying or associated factors. - Related Data Home Medications: Previous Rx's Medication Instructions Recorded Last Taken Type Amitriptyline [Elavil] 10 mg PO QHS #30 tablet 04/06/21 Unknown Rx Nitrofurantoin Macrocrystal 100 mg PO DAILY #5 capsule 04/06/21 Unknown Rx [Nitrofurantoin] Ibuprofen [Motrin] 200 mg PO Q6H PRN #30 tablet 01/04/22 Unknown Rx Acetaminophen [Non-Aspirin Extra 500 mg PO Q6HR PRN #30 tablet 02/21/22 Unknown Rx Strength] Allergies/Adverse Reactions: Allergies Allergy/AdvReac Type Severity Reaction Status Date / Time ondansetron Allergy Unknown Verified 01/21/22 22:26 [From Zofran (as hydrochloride)] pantoprazole [From Protonix] Allergy Unknown Verified 01/21/22 22:26 Penicillins Allergy Unknown Verified 01/21/22 22:26 promethazine [From Phenergan] Allergy Unknown Verified 01/21/22 22:26 Sulfa (Sulfonamide Allergy Unknown Verified 01/21/22 22:26 Antibiotics) tomato Allergy Unknown Verified 01/21/22 22:26 ED Review of Systems ROS: Stated complaint: HEAD NECK AND CHEST PAIN Other details as noted in HPI Comment: All other systems reviewed and negative Constitutional: malaise Eyes: vision change Neurological: headache ED Past Medical Hx - Past Medical History Hx Congestive Heart Failure: No Hx Diabetes: No Hx GERD: Yes Hx Asthma: No Hx COPD: No Hx HIV: No Additional medical history: GI bleed, Anemia - Surgical History Additional Surgical History: tonsillectomy. hemmorhoids. fissure repair - Social History Smoking Status: Never Smoker Substance Use Type: None - Medications Home Medications: Home Medications Medication Instructions Recorded Confirmed Last Taken Type Amitriptyline [Elavil] 10 mg PO QHS #30 tablet 04/06/21 Unknown Rx Nitrofurantoin Macrocrystal 100 mg PO DAILY #5 capsule 04/06/21 Unknown Rx [Nitrofurantoin] Ibuprofen [Motrin] 200 mg PO Q6H PRN #30 tablet 01/04/22 Unknown Rx Acetaminophen [Non-Aspirin Extra 500 mg PO Q6HR PRN #30 tablet 02/21/22 Unknown Rx Strength] ED Neuro Physical Exam - General Limitations: No Limitations General appearance: alert, in no apparent distress Suspected Stroke: Yes - Head Head exam: Present: atraumatic, normocephalic, normal inspection - Eye Eye exam: Present: normal appearance, PERRL, EOMI Pupils: Present: normal accommodation - ENT ENT exam: Present: normal exam, normal orophraynx, mucous membranes moist - Neck Neck exam: Present: normal inspection, full ROM. Absent: tenderness, meningismus - Respiratory Respiratory exam: Present: normal lung sounds bilaterally. Absent: respiratory distress, accessory muscle use - Cardiovascular Cardiovascular Exam: Present: regular rate, normal rhythm, normal heart sounds - GI/Abdominal GI/Abdominal exam: Present: soft, normal bowel sounds. Absent: distended, tenderness - Extremities Exam Extremities exam: Present: normal inspection, full ROM, normal capillary refill. Absent: tenderness, pedal edema, joint swelling - Back Exam Back exam: Present: normal inspection. Absent: CVA tenderness (R), CVA tenderness (L) - Neurological Exam Neurological exam: Present: alert, oriented X3, CN II-XII intact - NIHSS 1a. Level of Consciousness: alert/keenly responsive 1b. LOC Questions: answers both correctly 1c. LOC Commands: performs tasks correctly 2. Best Gaze: normal 3. Visual: no visual loss 4. Facial Palsy: normal symmetrical movement 5b. Motor Arm Right: no drift 5a. Motor Arm Left: no drift 6a. Motor Leg Left: no drift 6b. Motor Leg Right: no drift 7. Limb Ataxia: absent 8. Sensory: normal 9. Best Language: no aphasia 10. Dysarthria: normal 11. Extinction/Inattention: no abnormality Total Score: 0 Stroke Severity: No Stroke Symptoms - Psychiatric Psychiatric exam: Present: normal affect, normal mood - Skin Skin exam: Present: warm, normal color ED Course Vital Signs 03/03/22 03/03/22 03/03/22 20:58 21:45 21:50 Temperature 98.6 F Pulse Rate 75 72 Respiratory 16 16 17 Rate Blood Pressure 95/74 Blood Pressure 126/62 [Right] O2 Sat by Pulse 98 99 98 Oximetry 03/03/22 03/03/22 03/03/22 22:01 22:15 22:21 Temperature Pulse Rate 81 77 71 Respiratory 10 L 17 15 Rate Blood Pressure 104/60 108/77 109/64 Blood Pressure [Right] O2 Sat by Pulse 99 97 98 Oximetry 03/03/22 03/03/22 03/03/22 22:45 23:30 23:46 Temperature Pulse Rate 76 76 71 Respiratory 15 14 13 Rate Blood Pressure 100/56 98/59 98/56 Blood Pressure [Right] O2 Sat by Pulse 97 97 99 Oximetry 03/04/22 00:00 Temperature Pulse Rate 70 Respiratory 13 Rate Blood Pressure 105/50 Blood Pressure [Right] O2 Sat by Pulse 97 Oximetry - Reevaluation(s) Reevaluation #1: 03/03/22 21:36 here with generalized malaise with blurred vision and gait imbalance x couple of days-- noted with NIH zero at this time-- considering this patient age and zachery rbidity with go ahead and rule out stroke with CT head and other neurological labs and consult with neurology-- 03/03/22 23:16 Dr Cook teleneurologist consulted who agreed with getting CT head and neuro workup -- - Lab Data Result diagrams: 03/03/22 21:43 03/03/22 21:30 Lab Results 03/03/22 03/03/22 03/03/22 Range/Units 21:30 21:43 21:43 WBC 3.4 L (4.5-11.0) K/mm3 RBC 4.36 (3.65-5.03) M/mm3 Hgb 12.5 (10.1-14.3) gm/dl Hct 38.8 (30.3-42.9) % MCV 89 (79-97) fl MCH 29 (28-32) pg MCHC 32 (30-34) % RDW 15.0 (13.2-15.2) % Plt Count 173 (140-440) K/mm3 Lymph % (Auto) Byproducts Extractor Add Manual Diff Complete Total Counted 100 Seg Neutrophils % Byproducts Extractor Seg Neuts % (Manual) 37.0 L (40.0-70.0) % Band Neutrophils % 0 % Lymphocytes % (Manual) 52.0 H (13.4-35.0) % Reactive Lymphs % (Man) 0 % Monocytes % (Manual) 4.0 (0.0-7.3) % Eosinophils % (Manual) 3.0 (0.0-4.3) % Basophils % (Manual) 4.0 H (0.0-1.8) % Metamyelocytes % 0 % Myelocytes % 0 % Promyelocytes % 0 % Blast Cells % 0 % Nucleated RBC % Not Reportable Seg Neutrophils # Man 1.3 L (1.8-7.7) K/mm3 Band Neutrophils # 0.0 K/mm3 Lymphocytes # (Manual) 1.8 (1.2-5.4) K/mm3 Abs React Lymphs (Man) 0.0 K/mm3 Monocytes # (Manual) 0.1 (0.0-0.8) K/mm3 Eosinophils # (Manual) 0.1 (0.0-0.4) K/mm3 Basophils # (Manual) 0.1 (0.0-0.1) K/mm3 Metamyelocytes # 0.0 K/mm3 Myelocytes # 0.0 K/mm3 Promyelocytes # 0.0 K/mm3 Blast Cells # 0.0 K/mm3 WBC Morphology Not Reportable Hypersegmented Neuts Not Reportable Hyposegmented Neuts Not Reportable Hypogranular Neuts Not Reportable Smudge Cells Not Reportable Toxic Granulation Not Reportable Toxic Vacuolation Not Reportable Dohle Bodies Not Reportable Pelger-Huet Anomaly Not Reportable [place] Rods Not Reportable Platelet Estimate Consistent w auto Clumped Platelets Not Reportable Plt Clumps, EDTA Not Reportable Large Platelets Not Reportable Giant Platelets Not Reportable Platelet Satelliting Not Reportable Plt Morphology Comment Not Reportable RBC Morphology Normal Dimorphic RBCs Not Reportable Polychromasia Not Reportable Hypochromasia Not Reportable Poikilocytosis Not Reportable Anisocytosis Not Reportable Microcytosis Not Reportable Macrocytosis Not Reportable Spherocytes Not Reportable Pappenheimer Bodies Not Reportable Sickle Cells Not Reportable Target Cells Not Reportable Tear Drop Cells Not Reportable Ovalocytes Not Reportable Helmet Cells Not Reportable Guerra-Crompond Bodies Not Reportable Dunlap Rings Not Reportable Ezio Cells Not Reportable Bite Cells Not Reportable Crenated Cell Not Reportable Elliptocytes Not Reportable Acanthocytes (Spur) Not Reportable Rouleaux Not Reportable Hemoglobin C Crystals Not Reportable Schistocytes Not Reportable Malaria parasites Not Reportable Mykel Bodies Not Reportable Hem Pathologist Commnt No PT 12.2 (12.2-14.9) Sec. INR 0.82 L (0.87-1.13) APTT 29.3 (24.2-36.6) Sec. Thrombin Time 17.9 (15.1-19.6) Sec. Sodium 140 (137-145) mmol/L Potassium 3.7 (3.6-5.0) mmol/L Chloride 103.9 (98-107) mmol/L Carbon Dioxide 23 (22-30) mmol/L Anion Gap 17 mmol/L BUN 8 (7-17) mg/dL Creatinine 0.8 (0.6-1.2) mg/dL Estimated GFR > 60 ml/min BUN/Creatinine Ratio 10 % Glucose 94 (65-100) mg/dL Calcium 8.8 (8.4-10.2) mg/dL Total Bilirubin 0.40 (0.1-1.2) mg/dL AST 24 (5-40) units/L ALT 8 (7-56) units/L Alkaline Phosphatase 61 (35-129) units/L Total Creatine Kinase 144 H (30-135) units/L CK-MB (CK-2) 2.7 (0.0-4.0) ng/mL CK-MB (CK-2) Rel Index 1.8 (0-4) Troponin T < 0.010 (0.00-0.029) ng/mL Total Protein 6.9 (6.3-8.2) g/dL Albumin 4.0 (3.9-5) g/dL Albumin/Globulin Ratio 1.4 % Urine Color (Yellow) Urine Turbidity (Clear) Urine pH (5.0-7.0) Ur Specific [place] (1.003-1.030) Urine Protein (Negative) mg/dL Urine Glucose (UA) (Negative) mg/dL Urine Ketones (Negative) mg/dL Urine Blood (Negative) Urine Nitrite (Negative) Urine Bilirubin (Negative) Urine Urobilinogen (<2.0) mg/dL Ur Leukocyte Esterase (Negative) Urine WBC (Auto) (0.0-6.0) /HPF Urine RBC (Auto) (0.0-6.0) /HPF U Epithel Cells (Auto) (0-13.0) /HPF Urine Opiates Screen Urine Methadone Screen Ur Barbiturates Screen Ur Phencyclidine Scrn Ur Amphetamines Screen U Benzodiazepines Scrn Urine Cocaine Screen U Marijuana (THC) Screen Drugs of Abuse Note 03/03/22 03/03/22 Range/Units 22:58 22:58 WBC (4.5-11.0) K/mm3 RBC (3.65-5.03) M/mm3 Hgb (10.1-14.3) gm/dl Hct (30.3-42.9) % MCV (79-97) fl MCH (28-32) pg MCHC (30-34) % RDW (13.2-15.2) % Plt Count (140-440) K/mm3 Lymph % (Auto) Add Manual Diff Total Counted Seg Neutrophils % Seg Neuts % (Manual) (40.0-70.0) % Band Neutrophils % % Lymphocytes % (Manual) (13.4-35.0) % Reactive Lymphs % (Man) % Monocytes % (Manual) (0.0-7.3) % Eosinophils % (Manual) (0.0-4.3) % Basophils % (Manual) (0.0-1.8) % Metamyelocytes % % Myelocytes % % Promyelocytes % % Blast Cells % % Nucleated RBC % Seg Neutrophils # Man (1.8-7.7) K/mm3 Band Neutrophils # K/mm3 Lymphocytes # (Manual) (1.2-5.4) K/mm3 Abs React Lymphs (Man) K/mm3 Monocytes # (Manual) (0.0-0.8) K/mm3 Eosinophils # (Manual) (0.0-0.4) K/mm3 Basophils # (Manual) (0.0-0.1) K/mm3 Metamyelocytes # K/mm3 Myelocytes # K/mm3 Promyelocytes # K/mm3 Blast Cells # K/mm3 WBC Morphology Hypersegmented Neuts Hyposegmented Neuts Hypogranular Neuts Smudge Cells Toxic Granulation Toxic Vacuolation Dohle Bodies Pelger-Huet Anomaly [place] Rods Platelet Estimate Clumped Platelets Plt Clumps, EDTA Large Platelets Giant Platelets Platelet Satelliting Plt Morphology Comment RBC Morphology Dimorphic RBCs Polychromasia Hypochromasia Poikilocytosis Anisocytosis Microcytosis Macrocytosis Spherocytes Pappenheimer Bodies Sickle Cells Target Cells Tear Drop Cells Ovalocytes Helmet Cells Guerra-Crompond Bodies Dunlap Rings Ezio Cells Bite Cells Crenated Cell Elliptocytes Acanthocytes (Spur) Rouleaux Hemoglobin C Crystals Schistocytes Malaria parasites Mykel Bodies Hem Pathologist Commnt PT (12.2-14.9) Sec. INR (0.87-1.13) APTT (24.2-36.6) Sec. Thrombin Time (15.1-19.6) Sec. Sodium (137-145) mmol/L Potassium (3.6-5.0) mmol/L Chloride (98-107) mmol/L Carbon Dioxide (22-30) mmol/L Anion Gap mmol/L BUN (7-17) mg/dL Creatinine (0.6-1.2) mg/dL Estimated GFR ml/min BUN/Creatinine Ratio % Glucose (65-100) mg/dL Calcium (8.4-10.2) mg/dL Total Bilirubin (0.1-1.2) mg/dL AST (5-40) units/L ALT (7-56) units/L Alkaline Phosphatase (35-129) units/L Total Creatine Kinase (30-135) units/L CK-MB (CK-2) (0.0-4.0) ng/mL CK-MB (CK-2) Rel Index (0-4) Troponin T (0.00-0.029) ng/mL Total Protein (6.3-8.2) g/dL Albumin (3.9-5) g/dL Albumin/Globulin Ratio % Urine Color Straw (Yellow) Urine Turbidity Clear (Clear) Urine pH 6.0 (5.0-7.0) Ur Specific [place] 1.005 (1.003-1.030) Urine Protein <15 mg/dl (Negative) mg/dL Urine Glucose (UA) Neg (Negative) mg/dL Urine Ketones Neg (Negative) mg/dL Urine Blood Neg (Negative) Urine Nitrite Neg (Negative) Urine Bilirubin Neg (Negative) Urine Urobilinogen < 2.0 (<2.0) mg/dL Ur Leukocyte Esterase Tr (Negative) Urine WBC (Auto) 3.0 (0.0-6.0) /HPF Urine RBC (Auto) 1.0 (0.0-6.0) /HPF U Epithel Cells (Auto) 3.0 (0-13.0) /HPF Urine Opiates Screen Presumptive negative Urine Methadone Screen Presumptive negative Ur Barbiturates Screen Presumptive negative Ur Phencyclidine Scrn Presumptive negative Ur Amphetamines Screen Presumptive negative U Benzodiazepines Scrn Presumptive negative Urine Cocaine Screen Presumptive negative U Marijuana (THC) Screen Presumptive negative Drugs of Abuse Note Disclamer Critical care attestation.: If time is entered above; I have spent that time in minutes in the direct care of this critically ill patient, excluding procedure time. ED Disposition Clinical Impression: Malaise and fatigue, Blurred vision, bilateral Headache Qualifiers: Headache type: unspecified Headache chronicity pattern: unspecified pattern Intractability: not intractable Qualified Code(s): R51.9 - Headache, unspecified Disposition: 09 ADMITTED INPATIENT Is pt being admited?: Yes Does the pt Need Aspirin: No Condition: Stable Time of Disposition: 05:39
[2022-03-03 21:44] LABS: Hematocrit 38.8 % (30.3-42.9); Hemoglobin 12.5 gm/dl (10.1-14.3); Mean Corpuscular HGB Conc 32 % (30-34); Mean Corpuscular Volume 89 fl (79-97); Platelet Count 173 K/mm3 (140-440); Red Blood Count 4.36 M/mm3 (3.65-5.03)
[2022-03-03 21:49] LABS: INR 0.82 (0.87-1.13); Partial Thromboplastin Time 29.3 Sec. (24.2-36.6); Thrombin Time 17.9 Sec. (15.1-19.6)
--- NOTE | 2022-03-03 22:04 | Cat Scan Report ---
CT BRAIN: 03/03/2022 INDICATION / CLINICAL INFORMATION: Strokelike symptoms. No additional information provided. COMPARISON: CT brain 04/04/2021. FINDINGS: BRAIN/INTRACRANIAL STRUCTURES: Unenhanced CT images of the brain demonstrate no evidence of acute abn ormality. Ventricles and sulci are normal in size and shape. There is no evidence of hemorrhage or mass. There are no abnormal extra-axial fluid collections. EXTRACRANIAL STRUCTURES: Unremarkable. IMPRESSION: No acute abnormality. No change when compared to the prior exam. All CT scans at this location are performed using dose reduction to ALARA by means of automated expos ure control. Signer Name: Rene Hayden MD Signed: 03/03/2022 10:00 PM Workstation Name: [id number]
[2022-03-03 22:28] LABS: Alanine Aminotransferase 8 units/L (7-56); BUN/Creatinine Ratio 10; Blood Urea Nitrogen 8 mg/dL (7-17); Calcium 8.8 mg/dL (8.4-10.2); Hemolysis Index 10
--- NOTE | 2022-03-03 22:41 | Emergency Department Report ---
Blank Doc - Documentation Documentation: [facility] Consult Note # Demographics Consult Type: Acute Stroke Level 2 (4.5-24 hrs) Patient Location: Emergency Room First Name: Joi Last Name: Binh Date of : 1965 Age: 56 Gender: Female Facility: [facility] Time of Initial Page (Eastern Time): 03/03/2022, 21:15 Time of Return Call (Eastern Time): 03/03/2022, 21:16 # HPI History: 56 year old female not feeling well for few days. Headache started 2 days getting worse, imbalance issues/vision issues. No particular weakness. Patient states when she tries to blow her nose, her headache is worse. Complaining of occipital headache. Denies being sick or around anyone who is sick. # Scores Level of Consciousness 1a: [0] = Alert; keenly responsive LOC Questions 1b: [0] = Answers both questions correctly LOC Commands 1c: [0] = Performs both tasks correctly Best Gaze 2: [0] = Normal Visual 3: [0] = No visual loss Facial Palsy 4: [0] = Normal symmetrical movements Motor Arm Left 5a: [0] = No drift Motor Arm Right 5b: [0] = No drift Motor Leg Left 6a: [0] = No drift Motor Leg Right 6b: [0] = No drift Limb Ataxia 7: [0] = Absent Sensory 8: [0] = Normal Best Language 9: [0] = No aphasia Dysarthria 10: [0] = Normal Extinction and Inattention 11: [0] = No abnormality NIHSS Total: 0 # Exam Additional Exam Findings: able to touch chin to chest without any obvious noted grimace and complaints of pain # PMH-FH-SH Past Medical History: denies Social History: smoker non-drinker no drugs lives independently Medications: denies # Assessment Impression: 56 year old who presents with headache, balance issues and vision blurriness for 2 days. No obvious findings of examination. Differential is broad and includes vascular vs. intracranial mass lesion vs. infectious vs. autoimmune process as no clear history or examination findings otherwise. No signs of infection otherwise. Recommend MRI Brain with and without to start. IF not definitive and symptoms persist, pt may need LP. # Plan Labs: CBC comprehensive metabolic panel hemoglobin A1c liver function tests lipid panel thiamine TSH urine drug screen ua Imaging: (urgency: STAT): CT Head without contrast CT Angiogram Head and CT Angiogram Neck Imaging: (urgency: routine): MRI Brain with AND without contrast Diagnostic Test: echo with bubble study Therapy/Evaluation: PT/OT evaluation speech/swallow consultation Medication: aspirin 81 mg daily Other: If patient has any neurological deterioration please call me back immediately telemetry monitoring would not pursue stroke work-up if MRI is negative I have discussed my recommendations with the referring provider Disposition: admit
[2022-03-03 22:45] LABS: Creatine Kinase MB 2.7 ng/mL (0.0-4.0)
[2022-03-03 23:05] LABS: Bilirubin,Urine NEG (Negative); Blood,Urine NEG (Negative); Color,Urine Straw (Yellow); Protein,Urine <15 mg/dL mg/dL (Negative); Urobilinogen,Urine < 2.0 mg/dL (<2.0)
--- NOTE | 2022-03-03 23:13 | History and Physical Report ---
History of Present Illness Date of examination: 03/03/22 Date of admission: 03/03/2022 Chief complaint: Generalized Malaise Abnormal Gait History of present illness: 56-year-old -Greek female presenting to the emergency room today complaining of blurry vision, headache and unsteady gait which has been ongoing for the past 2 days. Patient indicates that headache was initially of frontal and then radiating towards the occipital region of his head. She denies any fever or chills, no nausea vomiting and no abdominal pain. She however indicates that she has been having generalized weakness. She denies any recent travel and no sick contacts. Work-up in the emergency room including labs, CT of the head has so far been unremarkable. Patient was evaluated by the Tele-neurologist and recommendation is to have CTA head and neck and patient to be worked up for possible CVA. Past History Past Medical History: GERD, other (GI Bleed,Anemia) Past Surgical History: Other ( tonsillectomy. hemmorhoids. fissure repair) Social history: no significant social history Family history: no significant family history Medications and Allergies Allergies Allergy/AdvReac Type Severity Reaction Status Date / Time ondansetron Allergy Unknown Verified 01/21/22 22:26 [From Zofran (as hydrochloride)] pantoprazole [From Protonix] Allergy Unknown Verified 01/21/22 22:26 Penicillins Allergy Unknown Verified 01/21/22 22:26 promethazine [From Phenergan] Allergy Unknown Verified 01/21/22 22:26 Sulfa (Sulfonamide Allergy Unknown Verified 01/21/22 22:26 Antibiotics) tomato Allergy Unknown Verified 01/21/22 22:26 Home Medications Medication Instructions Recorded Confirmed Last Taken Type Amitriptyline [Elavil] 10 mg PO QHS #30 tablet 04/06/21 Unknown Rx Nitrofurantoin Macrocrystal 100 mg PO DAILY #5 capsule 04/06/21 Unknown Rx [Nitrofurantoin] Ibuprofen [Motrin] 200 mg PO Q6H PRN #30 tablet 01/04/22 Unknown Rx Acetaminophen [Non-Aspirin Extra 500 mg PO Q6HR PRN #30 tablet 02/21/22 Unknown Rx Strength] Review of Systems Constitutional: weakness, no fever, no chills Ears, nose, mouth and throat: no nasal congestion, no sore throat Cardiovascular: no chest pain, no palpitations Respiratory: no cough, no shortness of breath Gastrointestinal: no abdominal pain, no nausea, no vomiting, no diarrhea Genitourinary Female: no pelvic pain, no flank pain, no dysuria, no hematuria Musculoskeletal: no neck pain, no low back pain Neurological: headaches, gait dysfunction Psychiatric: no anxiety, no depression Endocrine: no polydipsia, no polyuria, no nocturia Exam - Constitutional Vitals: Temp Pulse Resp BP Pulse Ox 98.6 F 77 17 108/77 97 03/03/22 20:58 03/03/22 22:15 03/03/22 22:15 03/03/22 22:15 03/03/22 22:15 General appearance: Present: no acute distress, well-nourished - EENT Eyes: Present: PERRL, EOM intact. Absent: scleral icterus ENT: hearing intact, clear oral mucosa, dentition normal - Neck Neck: Present: supple, normal ROM - Respiratory Respiratory effort: normal Respiratory: bilateral: CTA - Cardiovascular Rhythm: regular Heart Sounds: Present: S1 & S2. Absent: gallop, systolic murmur, diastolic murmur, rub, click - Extremities Extremities: no ischemia, pulses intact, pulses symmetrical, No edema, normal temperature, normal color, Full ROM Peripheral Pulses: within normal limits - Abdominal General gastrointestinal: Present: soft, non-tender, non-distended, normal bowel sounds. Absent: mass - Integumentary Integumentary: Present: clear, warm, dry, normal turgor. Absent: rash - Musculoskeletal Musculoskeletal: strength equal bilaterally - Psychiatric Psychiatric: appropriate mood/affect, intact judgment & insight, memory intact, cooperative - Neurologic Neurologic: CNII-XII intact, no focal deficits, moves all extremities HEART Score - HEART Score Troponin: Troponin T < 0.010 ng/mL (0.00-0.029) 03/03/22 21:30 Results - Labs CBC & Chem 7: 03/03/22 21:43 03/03/22 21:30 Labs: Abnormal lab results 03/03/22 03/03/22 Range/Units 21:43 21:43 WBC 3.4 L (4.5-11.0) K/mm3 INR 0.82 L (0.87-1.13) Assessment and Plan - Patient Problems (1) Unsteady gait Current Visit: No Status: Acute Plan to address problem: Etiology unclear. We will schedule patient for MRI of the brain, CT angiogram of the head and neck to rule out for possible CVA. Consult will be placed to neurologist for further evaluation and recommendations. We will commence patient on daily aspirin. (2) Blurred vision, bilateral Current Visit: No Status: Inactive Plan to address problem: Charges unclear. Patient being worked up for possible CVA. We will continue on daily aspirin. (3) Headache Current Visit: No Status: Acute Qualifiers: Headache type: unspecified Headache chronicity pattern: unspecified pattern Intractability: not intractable Qualified Code(s): R51.9 - Headache, unspecified Plan to address problem: Will place on analgesic medication as needed. (4) DVT prophylaxis Current Visit: No Status: Acute Plan to address problem: Placed on subcutaneous heparin. (5) Full code status Current Visit: No Status: Acute Plan to address problem: Patient is full code.
[2022-03-03] MEDS ORDERED: MAGNESIUM HYDROXIDE (MOM) ORAL LIQD UDC PO PRN ×2 (23:16)
[2022-03-03] MEDS ORDERED: PROMETHAZINE 25 MG RECT SUPP PR PRN (23:16)
[2022-03-03] MEDS ORDERED: ACETAMINOPHEN 325 MG TAB PO PRN ×2 (23:16)
[2022-03-03] MEDS ORDERED: MORPHINE 2 MG/1 ML INJ IV PRN (23:16)
[2022-03-03] MEDS ORDERED: MORPHINE 4 MG/1 ML INJ IV PRN ×2 (23:16)
[2022-03-03] MEDS ORDERED: ONDANSETRON 4 MG/2 ML INJ IV PRN (23:16)
[2022-03-03] MEDS ORDERED: METOCLOPRAMIDE 10 MG TAB PO PRN (23:16)
[2022-03-04 00:18] LABS: Amphetamine Screen,Urine PRESUMPTIVE NEGATIVE; Benzodiazepines Screen,Urine PRESUMPTIVE NEGATIVE; Cannabinoid Screen,Urine PRESUMPTIVE NEGATIVE; Cocaine Screen,Urine PRESUMPTIVE NEGATIVE; Methadone Screen,Urine PRESUMPTIVE NEGATIVE; Opiate Screen,Urine PRESUMPTIVE NEGATIVE
[2022-03-04] MEDS ORDERED: ACETAMINOPHEN 325 MG TAB PO PRN (00:40)
[2022-03-04 01:45] LABS: Total Cells Counted 100
[2022-03-04 01:46] LABS: Platelet Estimate Consistent w Auto; RBC Morphology Normal
--- NOTE | 2022-03-04 02:31 | Cat Scan Report ---
CTA NECK WITH CONTRAST 03/04/2022 INDICATION / CLINICAL INFORMATION: possible C.V.A.. No additional information provided COMPARISON: None. TECHNIQUE: Routine CTA of the neck is performed. 3-D/MIP reformats were postprocessed. Percentage st enosis is determined by direct quantitative measurements of diseased internal carotid artery diameter compared with normal distal internal carotid artery reference segments or by criteria similar to LYUBOV CET where applicable. All CT scans at this location are performed using CT dose reduction for ALARA b y means of automated exposure control. CONTRAST: 100 ml of Omnipaque 350 FINDINGS: Carotid bifurcations: No significant abnormality Carotid arteries: No significant abnormality. Cervical vertebral arteries: No significant abnormality. Aortic arch: No significant abnormality. None. IMPRESSION: No significant abnormality. Signer Name: Rene Hayden MD Signed: 03/04/2022 2:27 AM Workstation Name: [id number]
--- NOTE | 2022-03-04 02:33 | Cat Scan Report ---
CTA HEAD WITH CONTRAST 03/04/2022 HISTORY: Post-Code STROKE PROTOCOL!!! possible C.V.A.. COMPARISON: None. TECHNIQUE: All CT scans at this location are performed using CT dose reduction for ALARA by means of automated exposure control.. 3-D/MIP reformats postprocessed. Percentage stenosis is determined by d irect quantitative measurements of diseased internal carotid artery diameter compared with normal dis gisela internal carotid artery reference segments or by criteria similar to NASCET where applicable. CONTRAST: 100 ml of Omnipaque 350 FINDINGS: CTA HEAD: Intracranial vertebral arteries: No significant abnormality. Basilar artery: No significant abnormality. Posterior cerebral arteries: No significant abnormality. Intracranial internal carotid arteries: No significant abnormality. Anterior cerebral arteries: No significant abnormality. Middle cerebral arteries: No significant abnormality. Dural venous sinuses:Not optimally opacified. No significant abnormality. Additional findings: None. IMPRESSION: 1. No significant abnormality. Signer Name: Rene Hayden MD Signed: 03/04/2022 2:29 AM Workstation Name: [id number]
[2022-03-04] MEDS: MORPHINE 2 MG/1 ML INJ IV PRN (03:48)
[2022-03-04] MEDS: HEPARIN 5,000 UNIT/1 ML VIAL SUB-Q SCH ×3 (05:45→21:18)
[2022-03-04 08:15] LABS: Blood Urea Nitrogen 7 mg/dL (7-17); Calcium 8.4 mg/dL (8.4-10.2); Hemolysis Index 3
[2022-03-04 08:17] LABS: BUN/Creatinine Ratio 12
--- NOTE | 2022-03-04 08:23 | Consultation ---
History of Present Illness Consult date: 03/04/22 Reason for Consult: generalized weakness,Headache,Unsteady gait History of present illness: Generalized Malaise Abnormal Gait History of present illness: 56-year-old -[place] female presenting to the emergency room today complaining of blurry vision, headache and unsteady gait which has been ongoing for the past 2 days she is a bad historian According to pt. she had no hx of headache before until recently, she describes it as dull ache on top and back of her head Right more than left and is associated with blurred vision , she denied much of a nausea Patient indicates that headache was initially of frontal and then radiating towards the occipital region of her head. She denies any fever or chills, no nausea vomiting and no abdominal pain. She however indicates that she has been having generalized weakness. She denies any recent travel and no sick contacts. Work-up in the emergency room including labs, CT of the head has so far been unremarkable. Patient was evaluated by the Tele-neurologist had CTA head and neck are unremarkable Past History Past Medical History: GERD, other (GI Bleed,Anemia) Past Surgical History: Other ( tonsillectomy, hemmorhoidectomy ,fissure repair) Social history: no significant social history. Family history: no significant family history Medications and Allergies Allergies Allergy/AdvReac Type Severity Reaction Status Date / Time ondansetron Allergy Unknown Verified 01/21/22 22:26 [From Zofran (as hydrochloride)] pantoprazole [From Protonix] Allergy Unknown Verified 01/21/22 22:26 Penicillins Allergy Unknown Verified 01/21/22 22:26 promethazine [From Phenergan] Allergy Unknown Verified 01/21/22 22:26 Sulfa (Sulfonamide Allergy Unknown Verified 01/21/22 22:26 Antibiotics) tomato Allergy Unknown Verified 01/21/22 22:26 Home Medications Medication Instructions Recorded Confirmed Last Taken Type Amitriptyline [Elavil] 10 mg PO QHS #30 tablet 04/06/21 Unknown Rx Nitrofurantoin Macrocrystal 100 mg PO DAILY #5 capsule 04/06/21 Unknown Rx [Nitrofurantoin] Ibuprofen [Motrin] 200 mg PO Q6H PRN #30 tablet 01/04/22 Unknown Rx Acetaminophen [Non-Aspirin Extra 500 mg PO Q6HR PRN #30 tablet 02/21/22 Unknown Rx Strength] Review of Systems Constitutional: weakness, no fever, no chills Ears, nose, mouth and throat: no nasal congestion, no sore throat Cardiovascular: no chest pain, no palpitations Respiratory: no cough, no shortness of breath Gastrointestinal: no abdominal pain, no nausea, no vomiting, no diarrhea Genitourinary Female: no pelvic pain, no flank pain, no dysuria, no hematuria Musculoskeletal: no neck pain, no low back pain Neurological: headaches, gait dysfunction Psychiatric: no anxiety, no depression Endocrine: no polydipsia, no polyuria, no nocturia Exam Past History Past Medical History: GERD, other (GI Bleed,Anemia) Past Surgical History: Other ( tonsillectomy. hemmorhoids. fissure repair) Social history: no significant social history Family history: no significant family history Medications and Allergies Allergies Allergy/AdvReac Type Severity Reaction Status Date / Time ondansetron Allergy Unknown Verified 01/21/22 22:26 [From Zofran (as hydrochloride)] pantoprazole [From Protonix] Allergy Unknown Verified 01/21/22 22:26 Penicillins Allergy Unknown Verified 01/21/22 22:26 promethazine [From Phenergan] Allergy Unknown Verified 01/21/22 22:26 Sulfa (Sulfonamide Allergy Unknown Verified 01/21/22 22:26 Antibiotics) tomato Allergy Unknown Verified 01/21/22 22:26 Home Medications Medication Instructions Recorded Confirmed Last Taken Type Amitriptyline [Elavil] 10 mg PO QHS #30 tablet 04/06/21 03/04/22 Unknown Rx Nitrofurantoin Macrocrystal 100 mg PO DAILY #5 capsule 04/06/21 03/04/22 Unknown Rx [Nitrofurantoin] Ibuprofen [Motrin] 200 mg PO Q6H PRN #30 tablet 01/04/22 03/04/22 Unknown Rx Acetaminophen [Non-Aspirin Extra 500 mg PO Q6HR PRN #30 tablet 02/21/22 03/04/22 Unknown Rx Strength] Active Meds: Active Medications Acetaminophen (Acetaminophen 325 Mg Tab) 650 mg PO Q4H PRN PRN Reason: Pain MILD(1-3)/Fever >100.5/YOO Aspirin (Aspirin 325 Mg Tab) 325 mg PO QDAY [facility] Atorvastatin Calcium (Atorvastatin 40 Mg Tab) 40 mg PO QHS [facility] Bisacodyl (Bisacodyl 10 Mg Rect Supp) 10 mg [place] QDAY PRN PRN Reason: Constipation Heparin Sodium (Porcine) (Heparin 5,000 Unit/1 Ml Vial) 5,000 unit SUB-Q Q8HR [facility] Last Admin: 03/04/22 05:45 Dose: Not Given Magnesium Hydroxide (Magnesium Hydroxide (Mom) Oral Liqd Udc) 30 ml PO Q4H PRN PRN Reason: Constipation Metoclopramide HCl (Metoclopramide 10 Mg Tab) 10 mg PO Q6H PRN PRN Reason: Nausea And Vomiting Morphine Sulfate (Morphine 2 Mg/1 Ml Inj) 2 mg IV Q4H PRN PRN Reason: Pain, Moderate (4-6) Last Admin: 03/04/22 03:48 Dose: 2 mg Morphine Sulfate (Morphine 4 Mg/1 Ml Inj) 4 mg IV Q4H PRN PRN Reason: Pain , Severe (7-10) Sodium Chloride (Sodium Chloride 0.9% 10 Ml Flush Syringe) 10 ml IV BID [facility] Sodium Chloride (Sodium Chloride 0.9% 10 Ml Flush Syringe) 10 ml IV PRN PRN PRN Reason: LINE FLUSH Physical Examination - Vital Signs Vital Signs: Vital Signs Temp Pulse Resp BP Pulse Ox 98.6 F 75 16 126/62 98 03/03/22 20:58 03/03/22 20:58 03/03/22 20:58 03/03/22 20:58 03/03/22 20:58 - Constitutional General appearance: uncomfortable - EENT EENT: Present: PERRL, mucous membranes moist - Respiratory Respiratory: Present: lungs clear, rhonchi - Cardiovascular Cardiovascular: Present: regular rate, normal S1, normal S2 Extremities: Present: no peripheral edema bilatateraly, no clubbing, cyanosis - Gastrointestinal Gastrointestinal: Present: normoactive bowel sounds - Integumentary Integumentary: Present: normal - Neurologic Cranial nerve examination: PERRL, EOMI, intact, other (fundus is clear) Speech examination: intact Sensorimotor examination: intact Detailed motor examination: grossly full strength in - Psychiatric Psychiatric: Present: other (mild tenderness in right occipital no limited neck movment ,she refused to walk ,according to her she was able to go to bath room earlier wthout help) - Level of Consciousness 1a. Level of Consciousness: alert/keenly responsive - LOC Questions 1b. LOC Questions: answers both correctly - LOC Command 1c. LOC Commands: performs tasks correctly - Best Gaze 2. Best Gaze: normal - Visual 3. Visual: no visual loss - Facial Palsy 4. Facial Palsy: normal symmetrical movement - Motor Arm 5a. Motor Arm Left: no drift 5b. Motor Arm Right: no drift - Motor Leg 6a. Motor Leg Left: no drift 6b. Motor Leg Right: no drift - Limb Ataxia 7. Limb Ataxia: absent - Sensory 8. Sensory: normal - Best Language 9. Best Language: no aphasia - Dysarthria 10. Dysarthria: normal - Extinction and Inattention 11. Extinction/Inattention: no abnormality - Scoring Total Score: 0 Stroke Severity: No Stroke Symptoms Results - Laboratory Findings CBC and BMP: 03/03/22 21:43 03/04/22 07:34 Abnormal Lab Findings: Abnormal Labs 03/03/22 03/03/22 03/03/22 21:30 21:43 21:43 WBC 3.4 L Seg Neuts % (Manual) 37.0 L Lymphocytes % (Manual) 52.0 H Basophils % (Manual) 4.0 H Seg Neutrophils # Man 1.3 L INR 0.82 L Total Creatine Kinase 144 H Assessment and Plan Assessment and Plan 56-year-old -[place] female presenting to the emergency room today complaining of blurry vision, headache and unsteady gait which has been ongoing for the past 2 days she is a bad historian According to pt. she had no hx of headache before until recently, she describes it as dull ache on top and back of her head Right more than left and is associated with blurred vision , she denied much of a nausea Patient indicates that headache was initially of frontal and then radiating towards the occipital region of her head. - Patient Problems # New onset of Headache/ cervical myalgia - pt. presented with 2 days Hx of cervical occipital pain right more than left with exam none focal -complaint of blurred vision. CT brain is unremarkable -CTA brain and neck are unremarkable -Scheduled for MRI brain and neck -ESR -Increase elevil to 25 mg qhs -Lidooderm patch apply occipital daily X 3 days -Avoid narcotics -Tordol 30 mg IM prn for headache #Complaint of Unsteady gait - await MRI brain -Exam today is unremarkable -she refused to walk -- will try later on -Pt therapy -check for orthostatic changes -Hydration # Blurred vision, bilateral -Exam is unremarkable -Fundus is clear -check for orthostatic changes -Hydration # DVT prophylaxis -Placed on subcutaneous heparin. # Full code status -Patient is full code. Will follow
[2022-03-04] MEDS: ASPIRIN 325 MG TAB PO SCH (11:11)
[2022-03-04] MEDS ORDERED: LORazepam 2 MG/ML VIAL IV PRN (12:00)
--- NOTE | 2022-03-04 15:24 | Progress Note ---
Assessment and Plan -- Unsteady gait Current Visit: No Status: Acute Plan to address problem: Etiology unclear. We will schedule patient for MRI of the brain, CT angiogram of the head and neck to rule out for possible CVA. Consult will be placed to neurologist for further evaluation and recommendations. We will commence patient on daily aspirin. -- Blurred vision, bilateral Current Visit: No Status: Inactive Plan to address problem: Charges unclear. Patient being worked up for possible CVA. We will continue on daily aspirin. -- Headache Current Visit: No Status: Acute Qualifiers: Headache type: unspecified Headache chronicity pattern: unspecified pattern Intractability: not intractable Qualified Code(s): R51.9 - Headache, unspecified Plan to address problem: Will place on analgesic medication as needed. -- DVT prophylaxis Current Visit: No Status: Acute Plan to address problem: Placed on subcutaneous heparin. -- Full code status Current Visit: No Status: Acute Plan to address problem: Patient is full code. -- Pending MRI brain result, follow clinically. Patient complains of cough neck pain and headache we will also screen out for COVID-19. Subjective Date of service: 03/04/22 Interval history: Patient seen and examined. Medical records and medication list reviewed. No acute event overnight noted by the RN. Patient denies any chest pain or difficulty breathing. Patient is tolerating diet. But she is complaining of neck pain and cough Discussed plan of care at bedside with patient. Objective - Exam Narrative Exam: GENERAL: -[place] female lying on bed appeared to be in no discomfort. HEENT: Normocephalic. Atraumatic. No conjunctival congestion or icterus. Patient has moist mucous membranes. NECK: Supple. Trachea midline. CHEST/LUNGS: Clear to auscultated bilaterally, breathing nonlabored. No wheezes crackles or rhonchi. HEART/CARDIOVASCULAR: Regular in rate and rhythm. S1 and S2 positive. ABDOMEN: Abdomen is soft, nontender. Patient has normal bowel sounds. SKIN: There is no rash. Warm and dry. NEURO: No focal motor deficit. Follows command. MUSCULOSKELETAL: No joint effusion or tenderness. EXTRIMITY: No edema, no cyanosis or clubbing. PSYCH: Cooperative. - Constitutional Vitals: Vital Signs - 12hr 03/04/22 03/04/22 03/04/22 04:51 08:30 10:00 Temperature 98.3 F 98.3 F Pulse Rate 69 63 Respiratory 18 Rate Blood Pressure 102/57 100/54 O2 Sat by Pulse 96 95 95 Oximetry - Labs CBC & Chem 7: 03/03/22 21:43 03/04/22 07:34 Labs: Abnormal lab results 03/03/22 03/03/22 03/03/22 Range/Units 21:30 21:43 21:43 WBC 3.4 L (4.5-11.0) K/mm3 Seg Neuts % (Manual) 37.0 L (40.0-70.0) % Lymphocytes % (Manual) 52.0 H (13.4-35.0) % Basophils % (Manual) 4.0 H (0.0-1.8) % Seg Neutrophils # Man 1.3 L (1.8-7.7) K/mm3 INR 0.82 L (0.87-1.13) Total Creatine Kinase 144 H (30-135) units/L HEART Score - HEART Score Troponin: Troponin T < 0.010 ng/mL (0.00-0.029) 03/03/22 21:30
--- NOTE | 2022-03-04 15:25 | Vascular Lab Report ---
DUPLEX DOPPLER ULTRASOUND CAROTID, BILATERAL INDICATION / CLINICAL INFORMATION: stroke. COMPARISON: CTA neck performed today. FINDINGS: RIGHT CAROTID: Minimal atherosclerotic plaque. Tortuous ICA. - PLAQUE ESTIMATE (%): < 50% - CCA velocity: 96 cm/sec. - ICA peak systolic velocity: 124 cm/sec. ICA peak end-diastolic velocity 56 cm/s. - ICA/CCA PSV Ratio: Less than 2. Right Vertebral Artery: Antegrade flow. LEFT CAROTID: Minimal atherosclerotic plaque. Tortuous ICA. - PLAQUE ESTIMATE (%): < 50% - CCA velocity: 90 cm/sec. - ICA peak systolic velocity: 111 cm/sec. ICA peak end-diastolic velocity 47 cm/s. - ICA/CCA PSV Ratio: Less than 2. Left Vertebral Artery: Antegrade flow. IMPRESSION: 1. Right Internal Carotid Artery: Though other indicators are within standard range, there is moderat e elevation of the end-diastolic velocity in the right internal carotid artery. This would correlate with stenosis in the 50-75% range, likely at the lower end of that range. 2. Left Internal Carotid Artery: Though other indicators are within standard range, there is mild angelic vation of the end-diastolic velocity in the left internal carotid artery. This would correlate with s tenosis in the 50-75% range, likely at the lower end of that range. 3. MRA or CTA may be useful Velocity criteria are extrapolated from diameter data as defined by the Society of Radiologists in Ul trasound Consensus Conference, Radiology 2003; 229;340-346. NO STENOSIS (NORMAL) - Plaque = none; ICA PSV < 125 cm/sec; ICA/CCA PSV Ratio < 2.0 <50% STENOSIS - Plaque < 50%; ICA PSV < 125 cm/sec; ICA/CCA PSV Ratio < 2.0 50-69% STENOSIS - Plaque > 50%; ICA PSV = 125-230 cm/sec; ICA/CCA PSV Ratio = 2.0-4.0 >70% BUT <100% STENOSIS - Plaque > 50%; ICA PSV > 230 cm/sec; ICA/CCA PSV Ratio > 4.0 NEAR OCCLUSION - Plaque = visible lumen; ICA PSV = high/low/none; ICA/CCA PSV Ratio = variable TOTAL OCCLUSION - Plaque = no lumen; ICA PSV = none; ICA/CCA PSV Ratio = N/A Scribed by: Claudia Pineda RDMS, RVT, MIKI Scribed: 03/04/2022 1:47 PM I have reviewed the images, agree with this report, and edited this report as needed. Signer Name: Néstor Lugo MD Signed: 03/04/2022 3:20 PM Workstation Name: [id number]
--- NOTE | 2022-03-04 16:36 | Magnetic Resonance Report ---
MRI BRAIN WITHOUT CONTRAST INDICATION / CLINICAL INFORMATION: stroke. TECHNIQUE: Multiplanar, multisequence MR images of the brain were obtained. COMPARISON: MRI brain 04/05/2021 FINDINGS: BRAIN / INTRACRANIAL CONTENTS: Ventricles and cortical sulci are normal in size and configuration. Th ere is no mass effect. No evidence of intracranial hemorrhage or extra-axial fluid collection is seen . A few scattered, small foci of white matter hyperintensity are observed in the deep and subcortical white matter of both cerebral hemispheres. Similar findings were present on previous study. These ar e nonspecific findings. Considerations include microvascular ischemic change (are there risk factors of hypertension, diabetes or cigarettes smoking). In the appropriate clinical setting the possibility of demyelinating disease could be considered but the distribution of white matter findings is not ty pical for demyelinating disease. No additional areas of abnormal brain parenchymal signal intensity a re identified. There is no indication of remote cortical infarction. Diffusion weighted scans are neg ative. There is no indication of acute ischemic injury. The brainstem and cerebellum have an unremarkable appearance. MIDLINE STRUCTURES:No abnormalities are seen to involve the pituitary gland. Pineal region has an unr emarkable appearance. CRANIOCERVICAL JUNCTION: No abnormalities are identified at the craniocervical junction. VASCULAR FLOW-VOIDS: Normal flow-voids are present within the major intracranial vessels. ORBITS: The orbits have an unremarkable appearance. SINUSES / MASTOIDS: There is no indication of inflammatory disease in the paranasal sinuses evaluatio n of the mastoid air cells is remarkable for fluid signal intensity in the left mastoid region. This may reflect presence of mastoid effusion. Mastoiditis (both chronic and acute) could produce a simila r appearance. Evaluation of the nasal cavity is remarkable for prominent defect in the cartilaginous nasal septum. This can be seen in the setting of trauma, granulomatous disease and inhalational disea se. This has developed since prior study. IMPRESSION: 1. Several small nonspecific foci of white matter hyperintensity are present in the deep and subcorti rajeev white matter of both cerebral hemispheres. Similar findings were present on previous study. Pleas e refer to the above discussion. 2. There is no indication of recent or remote infarction this patient with history of stroke. 3. Similar findings were present on previous study. No significant interval change in the MRI appeara nce of the brain. 4. Interval development of a defect in the cartilaginous nasal septum. Please refer to the above disc ussion. Signer Name: Hair Franco MD Signed: 03/04/2022 4:31 PM Workstation Name: [id number]
--- NOTE | 2022-03-04 18:03 | Magnetic Resonance Report ---
MR cervical spine wo con INDICATION / CLINICAL INFORMATION: 56 years Female; Cervical Mylopathy. TECHNIQUE: Multisequence, multiplanar images of the cervical spine were obtained. COMPARISON: The study is compared to previous MRI of 04/04/2021. FINDINGS: CRANIOCERVICAL JUNCTION:No significant abnormality. ALIGNMENT: There is no significant developing spondylolisthesis of the cervical spine. VERTEBRAE:There is no developing edema of the cervical vertebral bodies. There is a persistent rounde d a focus of decreased T1 and T2-weighted signal within the C4 vertebral body which is unchanged and may reflect an atypical hemangioma. VISUALIZED SPINAL CORD: The cervical spinal cord appears to demonstrate appropriate signal intensity on the combination of sequences. [id number]-TO-[id number] ANALYSIS: C2-3: No significant abnormality. C3-4: No significant abnormality. C4-5: There is a broad-based central disc bulge which effaces the subarachnoid space without signific ant direct cord compression. The neural foramen are patent. C5-6 disc bulge also effaces the subarachnoid space without cord compression. There is no significant foraminal narrowing. C6-7: The broad-based central disc bulge slightly encroaches on the ventral cord. There is mild left foraminal narrowing. The findings correlate with the previous MRI. C7-T1: There is a minimal left-sided disc bulge without significant stenosis or foraminal narrowing ADDITIONAL FINDINGS: No epidural collections are identified. IMPRESSION: 1. There are continued multilevel degenerative disc changes and disc bulges involving the cervical sp ine as detailed above. Signer Name: Jesus Denney MD Signed: 03/04/2022 5:59 PM Workstation Name: [id number]
[2022-03-04] MEDS: LIDOCAINE 5% 1 EACH PATCH TD SCH ×2 (20:03→21:17)
[2022-03-04] MEDS ORDERED: AMITRIPTYLINE 25 MG TAB PO SCH (22:00)
[2022-03-04] MEDS ORDERED: AMITRIPTYLINE 10 MG TAB PO SCH (22:00)
[2022-03-05] MEDS: HEPARIN 5,000 UNIT/1 ML VIAL SUB-Q SCH ×2 (05:17→14:20)
[2022-03-05 09:07] VITALS: BP 104/56
--- NOTE | 2022-03-05 10:27 | Progress Note ---
Assessment and Plan Assessment and Plan 56-year-old -Ugandan female presenting to the emergency room today complaining of blurry vision, headache and unsteady gait which has been ongoing for the past 2 days she is a bad historian According to pt. she had no hx of headache before until recently, she describes it as dull ache on top and back of her head Right more than left and is associated with blurred vision , she denied much of a nausea Patient indicates that headache was initially of frontal and then radiating towards the occipital region of her head. - Patient Problems # New onset of Headache/ cervical myalgia -- Improved today - pt. presented with 2 days Hx of cervical occipital pain right more than left with exam none focal -complaint of blurred vision. -CT brain is unremarkable -CTA brain and neck are unremarkable -Scheduled for MRI brain and neck-- remarkable for small vessels disease and cervical disc disease more C6-7 no sign of Mylopathy -ESR#17 -Increase elevil to 25 mg qhs -Lidooderm patch apply occipital daily X 3 days -Avoid narcotics -Tordol 30 mg IM prn for headache #Complaint of Unsteady gait -Exam today is unremarkable -Pt therapy -check for orthostatic changes -Hydration -Low BP # Blurred vision, bilateral -Exam is unremarkable -Fundus is clear -check for orthostatic changes -Hydration # DVT prophylaxis -Placed on subcutaneous heparin. # Full code status -Patient is full code. Will follow Subjective Date of service: 03/05/22 Interval history: she is complainig of being dizzy and unsteady No orthostatic vital done MRI brain and neck showed white matter changes remote,and cervical degenerative disc worse C6-7 no sign of weakness nor brisk reflexes did not walk US carotid is <50% Echo and LDL are pending Objective - Vital Sign Vital Signs - 12hr 03/05/22 03/05/22 03/05/22 00:00 03:47 08:38 Temperature 98.5 F 98.0 F 98.5 F Pulse Rate 74 69 69 Respiratory 18 18 Rate Blood Pressure 101/50 99/57 104/56 O2 Sat by Pulse 98 94 96 Oximetry - General Apperance Constitutional: comfortable - EENT EENT: PERRL, mucous membranes moist - Respiratory Respiratory: lungs clear, rhonchi - Cardiovascular Cardiovascular: regular rate, normal S1, normal S2 Extremities: no peripheral edema bilat, no clubbing, cyanosis - Gastrointestinal Gastrointestinal: normoactive bowel sounds - Integumentary Integumentary: normal - Neurologic Cranial nerve examination: PERRL, EOMI, intact Speech examination: intact Detailed motor examination: grossly full strength in - Laboratory Findings CBC and BMP: 03/03/22 21:43 03/04/22 07:34 Abnormal Lab Findings: Abnormal Labs 03/03/22 03/03/22 03/03/22 21:30 21:43 21:43 WBC 3.4 L Seg Neuts % (Manual) 37.0 L Lymphocytes % (Manual) 52.0 H Basophils % (Manual) 4.0 H Seg Neutrophils # Man 1.3 L INR 0.82 L Total Creatine Kinase 144 H
[2022-03-05 10:37] LABS: Chol/HDL Ratio 2.97 %
--- NOTE | 2022-03-05 11:52 | Discharge Summary ---
Providers - Providers Date of Admission: 03/03/22 23:16 Date of discharge: 03/05/22 Attending physician: BRETT ARAUZ 03/03/22 23:16 Consult to Dietitian/Nutrition [CONS] Routine Physician Instructions: Reason For Exam: Reason for Consult: Nutrition Recommendations Reason for Consult: Diet education Consult to Physician [CONS] Routine Comment: Consulting Provider: JOSS JOSE Physician Instructions: Reason For Exam: Unsteady gait Occupational Therapy Evaluate and Treat [CONS] Routine Comment: Reason For Exam: Neuro deficits Physical Therapy Evaluation and Treat [CONS] Routine Comment: Reason For Exam: Neuro deficits 03/03/22 23:19 Speech Therapy Evaluation and Treat [CONS] Routine Reason For Exam: swallow eval Primary care physician: CATRINA TALLEY Hospitalization Condition: Stable Hospital course: 56-year-old -Tongan female presenting to the emergency room today complaining of blurry vision, headache and unsteady gait which has been ongoing for the past 2 days she is a bad historian According to pt. she had no hx of headache before until recently, she describes it as dull ache on top and back of her head Right more than left and is associated with blurred vision , she denied much of a nausea Patient indicates that headache was initially of frontal and then radiating towards the occipital region of her head. Assessment and plan # New onset of Headache/ cervical myalgia -- Improved today - pt. presented with 2 days Hx of cervical occipital pain right more than left with exam none focal -complaint of blurred vision. -CT brain is unremarkable -CTA brain and neck are unremarkable -Scheduled for MRI brain and neck-- remarkable for small vessels disease and cervical disc disease more C6-7 no sign of Mylopathy -ESR#17 -Increase elevil to 25 mg qhs -Lidooderm patch apply occipital daily X 3 days -Avoid narcotics -Tordol 30 mg IM prn for headache #Complaint of Unsteady gait -Exam today is unremarkable -Pt therapy -check for orthostatic changes -Hydration -Low BP #Intermittent epistaxis Very scanty blood stain nasal discharge Likely due to dry nose we will add Flonase # Blurred vision, bilateral -Exam is unremarkable -Fundus is clear -check for orthostatic changes -Hydration # DVT prophylaxis -Hold for epistaxis. Disposition: HOME / SELF CARE / HOMELESS Final Discharge Diagnosis (Prints w/discharge instructions): # New onset of Headache/ cervical myalgia -- Improved today. #Complaint of Unsteady gait. # Blurred vision, bilateral, neuro exam clear, need outpt opthalmology eval. # Intermitent epistaxis, flonase nasal spray Time spent for discharge: 34 minutes Core Measure Documentation - Palliative Care Palliative Care/ Comfort Measures: Not Applicable - Core Measures Any of the following diagnoses?: none Exam - Physical Exam Narrative exam: GENERAL: -Tongan female lying on bed appeared to be in no discomfort. HEENT: Normocephalic. Atraumatic. No conjunctival congestion or icterus. Patient has moist mucous membranes. NECK: Supple. Trachea midline. CHEST/LUNGS: Clear to auscultated bilaterally, breathing nonlabored. No wheezes crackles or rhonchi. HEART/CARDIOVASCULAR: Regular in rate and rhythm. S1 and S2 positive. ABDOMEN: Abdomen is soft, nontender. Patient has normal bowel sounds. SKIN: There is no rash. Warm and dry. NEURO: No focal motor deficit. Follows command. MUSCULOSKELETAL: No joint effusion or tenderness. EXTRIMITY: No edema, no cyanosis or clubbing. PSYCH: Cooperative. - Constitutional Vitals: Temp Pulse Resp BP Pulse Ox 98.5 F 69 18 104/56 96 03/05/22 08:38 03/05/22 08:38 03/05/22 03:47 03/05/22 08:38 03/05/22 08:38 Plan Activity: advance as tolerated Weight Bearing Status: Weight Bear as Tolerated Diet: regular Additional Instructions: Follow-up with PCP in 1 week. Please come back to the ER if your symptoms worsen. Follow-up with neurosurgery for your cervical pain Follow up with: CATRINA TALLEY MD [Primary Care Provider] - 7 Days APURVA LOVE II, MD [Staff Physician] - 7 Days Prescriptions: Amitriptyline [Elavil] 25 mg PO QHS #30 tablet AtorvaSTATin [Lipitor] 40 mg PO QHS #30 tablet Fluticasone [Flonase] 100 mcg NS QDAY #1 bottle Lidocaine 1 each TP DAILY #15 patch
[2022-03-05] MEDS ORDERED: FLUTICASONE PROPIONATE NASAL SPRAY 16 GM NS SCH (12:00)
[2022-03-05] MEDS: ASPIRIN 325 MG TAB PO SCH (12:09)
[2022-03-05] MEDS: LIDOCAINE 5% 1 EACH PATCH TD SCH (12:10)
[2022-03-05] MEDS: MORPHINE 2 MG/1 ML INJ IV PRN (12:19)
== END 2022-03-05 16:00 | disposition home or self-care (01) | DRG 125 ==
LOC: ED 20:51 → 4A 23:16
PROVIDERS: ADMIT Internal Medicine Geriatric Medicine; ATTEND Internal Medicine
DX: H53.8 Other visual disturbances (principal); R51.9 Headache, unspecified; M79.18 Myalgia, other site; R26.81 Unsteadiness on feet; R53.81 Other malaise; K21.9 Gastro-esophageal reflux disease without esophagitis; R04.0 Epistaxis
CPT/HCPCS: 36415; 70450; 70496; 70498; 70551; 72141; 80048; 80053; 80061; 80307; 81001; 82550; 82553; 84484; 85007; 85025; 85610; 85652; 85670; 85730; 93005; 93880; G0378; J2060; J2270; J7030; Q9967; U0003

== ENCOUNTER 2022-03-10 21:58 | Emergency (ER) | payer SELFPAY ==
[2022-03-10 22:22] VITALS: BP 105/35
== END 2022-03-11 03:45 | disposition left against medical advice (07) ==
LOC: ED 21:58
DX: R51.9 Headache, unspecified (principal); H53.8 Other visual disturbances; Z53.21 Procedure and treatment not carried out due to patient leaving prior to being seen by health care provider

== ENCOUNTER 2022-07-22 23:15 | Emergency (ER) | payer SELFPAY ==
[2022-07-23 06:03] LABS: Hematocrit 38.1 % (30.3-42.9); Hemoglobin 12.3 gm/dl (10.1-14.3); Mean Corpuscular HGB Conc 32 % (30-34); Mean Corpuscular Volume 89 fl (79-97); Platelet Count 181 K/mm3 (140-440); Red Blood Count 4.27 M/mm3 (3.65-5.03); Red Cell Distribution Width 14.5 % (13.2-15.2)
[2022-07-23 06:08] LABS: Albumin 4.1 g/dL (3.9-5); Blood Urea Nitrogen 13 mg/dL (7-17); Calcium 9.2 mg/dL (8.4-10.2); Hemolysis Index 22
[2022-07-23 06:21] LABS: Alanine Aminotransferase < 5 units/L (7-56); BUN/Creatinine Ratio 19; Bilirubin,Direct < 0.2 mg/dL (0-0.2)
[2022-07-23 06:41] LABS: Basophils % (Manual) 0 % (0.0-1.8); Platelet Estimate Consistent w Auto; Total Cells Counted 100
[2022-07-23] MEDS: HYOSCYAMINE SUBL 0.125 MG TAB SL ONE ×2 (06:44→06:47)
[2022-07-23 08:57] LABS: Bilirubin,Urine NEG (Negative); Blood,Urine NEG (Negative); Color,Urine Yellow (Yellow); Protein,Urine <15 mg/dL mg/dL (Negative); Urobilinogen,Urine < 2 mg/dL (<2.0)
[2022-07-23 09:10] LABS: RBC,Urine < 1.0 /HPF (0.0-6.0); WBC,Urine < 1.0 /HPF (0.0-6.0)
--- NOTE | 2022-07-23 09:31 | Cat Scan Report ---
CT ABDOMEN AND PELVIS WITH CONTRAST INDICATION / CLINICAL INFORMATION: Lower ABD Pain. TECHNIQUE: Axial CT images were obtained through the abdomen and pelvis after IV contrast. All CT sc ans at this location are performed using CT dose reduction for ALARA by means of automated exposure c ontrol. COMPARISON: CT dated 03/26/2021 FINDINGS: LOWER CHEST: Bibasilar subsegmental atelectasis. Mosaic attenuation of the lung bases is likely relat ed to physiologic air trapping. LIVER: No significant abnormality. GALLBLADDER: No significant abnormality. BILE DUCTS: No significant abnormality. PANCREAS: No significant abnormality. SPLEEN: No significant abnormality. ADRENALS: No significant abnormality. RIGHT KIDNEY / URETER: No significant abnormality. LEFT KIDNEY / URETER: No significant abnormality. STOMACH / SMALL BOWEL: No significant abnormality. Small periampullary duodenal diverticulum. COLON: No significant abnormality. APPENDIX: No significant abnormality. PERITONEUM: No free fluid. No free air. No fluid collection. LYMPH NODES: No significant adenopathy. AORTA / ARTERIES: Mild atherosclerotic calcification without acute abnormality. IVC / VEINS: No significant abnormality. URINARY BLADDER: No significant abnormality. REPRODUCTIVE ORGANS: No significant abnormality. ADDITIONAL FINDINGS: Small fat-containing umbilical hernia. SKELETAL SYSTEM: Mild lower lumbar spine degenerative changes. No acute abnormality. IMPRESSION: 1. No acute abnormality in the abdomen or pelvis to explain patient's abdominal pain. Signer Name: Malick Lopez MD Signed: 07/23/2022 9:27 AM Workstation Name: [id number]
[2022-07-23 09:47] LABS: Mucus,Urine FEW /HPF
[2022-07-23] MEDS ORDERED: DICYCLOMINE 20 MG TAB PO ONE (09:51)
--- NOTE | 2022-07-23 09:54 | Emergency Department Report ---
ED Abdominal Pain HPI - General Chief Complaint: Abdominal Pain Stated Complaint: CHEAT PAINS/ABD PAIN Time Seen by Provider: 07/23/22 07:35 Source: patient Mode of arrival: Ambulatory Limitations: No Limitations - History of Present Illness Initial Comments: Patient is a 56-year-old female who is well-known to [facility]. She comes in today with abdominal pain. She states is on the left upper and left lower quadrant. And it feels like something is running inside of her. She has had this for days but got worse yesterday. She endorses dark stools. She is a bit dramatic on exam and adds that she is having chest pain and shortness of melani ath. She denies fever or chills. She is eating a chicken, per the nurses on their assessment. She denies nausea vomiting or diarrhea. Patient states that she does not have a primary care doctor because she is new to this area. However, she has been in this ER dating back to 2011. Patient denies mental health history. She is current, sarcastic but cooperative. She denies taking home medications She had a colonoscopy years ago She is immunized for COVID Complaint: abdominal pain -: Gradual, days(s) Location: LUQ, LLQ Migration to: no migration Severity scale (0 -10): 3 Quality: other Consistency: intermittent Improves With: nothing Worsens With: nothing Associated Symptoms: denies other symptoms - Related Data Previous Rx's Medication Instructions Recorded Last Taken Type Acetaminophen [Non-Aspirin Extra 500 mg PO Q6HR PRN #30 tablet 02/21/22 Unknown Rx Strength] Amitriptyline [Elavil] 25 mg PO QHS #30 tablet 03/05/22 Unknown Rx AtorvaSTATin [Lipitor] 40 mg PO QHS #30 tablet 03/05/22 Unknown Rx Fluticasone [Flonase] 100 mcg NS QDAY #1 bottle 03/05/22 Unknown Rx Lidocaine 1 each TP DAILY #15 patch 03/05/22 Unknown Rx Allergies Allergy/AdvReac Type Severity Reaction Status Date / Time ondansetron Allergy Unknown Verified 01/21/22 22:26 [From Zofran (as hydrochloride)] pantoprazole [From Protonix] Allergy Unknown Verified 01/21/22 22:26 Penicillins Allergy Unknown Verified 01/21/22 22:26 promethazine [From Phenergan] Allergy Unknown Verified 01/21/22 22:26 Sulfa (Sulfonamide Allergy Unknown Verified 01/21/22 22:26 Antibiotics) tomato Allergy Unknown Verified 01/21/22 22:26 ED Review of Systems ROS: Stated complaint: CHEAT PAINS/ABD PAIN Other details as noted in HPI Comment: All other systems reviewed and negative ED Past Medical Hx - Past Medical History Previous Medical History?: Yes Hx CVA: No (Patient denies but patient has been admitted to rule out TIA in ) Hx Heart Attack/AMI: No Hx Congestive Heart Failure: No Hx Diabetes: No Hx Deep Vein Thrombosis: No (Patient denies) Hx GERD: Yes Hx Asthma: No Hx COPD: No Hx HIV: No Additional medical history: GI bleed, Anemia - Surgical History Past Surgical History?: Yes Additional Surgical History: tonsillectomy. hemmorhoids. fissure repair - Family History Family history: no significant - Social History Smoking Status: Heavy Tobacco Smoker (Patient denies smoking to provider but tells the staff she does smoke) Substance Use Type: None - Medications Home Medications: Home Medications Medication Instructions Recorded Confirmed Last Taken Type Acetaminophen [Non-Aspirin Extra 500 mg PO Q6HR PRN #30 tablet 02/21/22 03/04/22 Unknown Rx Strength] Amitriptyline [Elavil] 25 mg PO QHS #30 tablet 03/05/22 Unknown Rx AtorvaSTATin [Lipitor] 40 mg PO QHS #30 tablet 03/05/22 Unknown Rx Fluticasone [Flonase] 100 mcg NS QDAY #1 bottle 03/05/22 Unknown Rx Lidocaine 1 each TP DAILY #15 patch 03/05/22 Unknown Rx ED Physical Exam - General Limitations: No Limitations General appearance: alert, in no apparent distress - Head Head exam: Present: atraumatic, normocephalic - Eye Eye exam: Present: normal appearance, PERRL, EOMI - ENT ENT exam: Present: mucous membranes moist - Neck Neck exam: Present: normal inspection - Respiratory Respiratory exam: Present: normal lung sounds bilaterally. Absent: respiratory distress - Cardiovascular Cardiovascular Exam: Present: regular rate, normal rhythm. Absent: systolic murmur, diastolic murmur, rubs, gallop - GI/Abdominal GI/Abdominal exam: Present: soft, normal bowel sounds. Absent: distended, tenderness, guarding, rebound, rigid, diminished bowel sounds, hyperactive bowel sounds, hypoactive bowel sounds, organomegaly, mass, bruit, pulsatile mass, hernia - Rectal Rectal exam: Present: deferred - Extremities Exam Extremities exam: Present: normal inspection, full ROM - Back Exam Back exam: Present: normal inspection, full ROM - Neurological Exam Neurological exam: Present: alert, oriented X3 - Psychiatric Psychiatric exam: Present: normal affect, normal mood - Skin Skin exam: Present: warm, dry, intact, normal color. Absent: rash ED Course Vital Signs 07/22/22 07/23/22 23:18 10:12 Temperature 98.4 F 98.3 F Pulse Rate 71 89 Respiratory 18 20 Rate Blood Pressure 111/69 Blood Pressure 145/88 [Left] O2 Sat by Pulse 99 100 Oximetry ED Medical Decision Making - Lab Data Result diagrams: 07/23/22 05:20 07/23/22 05:20 - Radiology Data Radiology results: report reviewed, image reviewed nap - Medical Decision Making Lab Results 07/23/22 07/23/22 07/23/22 Range/Units 05:20 05:20 Unknown WBC 2.9 L (4.5-11.0) K/mm3 RBC 4.27 (3.65-5.03) M/mm3 Hgb 12.3 (10.1-14.3) gm/dl Hct 38.1 (30.3-42.9) % MCV 89 (79-97) fl MCH 29 (28-32) pg MCHC 32 (30-34) % RDW 14.5 (13.2-15.2) % Plt Count 181 (140-440) K/mm3 Lymph % (Auto) Information Technology Analyst Add Manual Diff Complete Total Counted 100 Seg Neutrophils % Information Technology Analyst Seg Neuts % (Manual) 40.0 (40.0-70.0) % Band Neutrophils % 0 % Lymphocytes % (Manual) 49.0 H (13.4-35.0) % Reactive Lymphs % (Man) 0 % Monocytes % (Manual) 8.0 H (0.0-7.3) % Eosinophils % (Manual) 3.0 (0.0-4.3) % Basophils % (Manual) 0 (0.0-1.8) % Metamyelocytes % 0 % Myelocytes % 0 % Promyelocytes % 0 % Blast Cells % 0 % Nucleated RBC % Not Reportable Seg Neutrophils # Man 1.2 L (1.8-7.7) K/mm3 Band Neutrophils # 0.0 K/mm3 Lymphocytes # (Manual) 1.4 (1.2-5.4) K/mm3 Abs React Lymphs (Man) 0.0 K/mm3 Monocytes # (Manual) 0.2 (0.0-0.8) K/mm3 Eosinophils # (Manual) 0.1 (0.0-0.4) K/mm3 Basophils # (Manual) 0.0 (0.0-0.1) K/mm3 Metamyelocytes # 0.0 K/mm3 Myelocytes # 0.0 K/mm3 Promyelocytes # 0.0 K/mm3 Blast Cells # 0.0 K/mm3 WBC Morphology Not Reportable Hypersegmented Neuts Not Reportable Hyposegmented Neuts Not Reportable Hypogranular Neuts Not Reportable Smudge Cells Not Reportable Toxic Granulation Not Reportable Toxic Vacuolation Not Reportable Dohle Bodies Not Reportable Pelger-Huet Anomaly Not Reportable [place] Rods Not Reportable Platelet Estimate Consistent w auto Clumped Platelets Not Reportable Plt Clumps, EDTA Not Reportable Large Platelets Not Reportable Giant Platelets Not Reportable Platelet Satelliting Not Reportable Plt Morphology Comment Not Reportable RBC Morphology Not Reportable Dimorphic RBCs Not Reportable Polychromasia Not Reportable Hypochromasia Not Reportable Poikilocytosis Not Reportable Anisocytosis Not Reportable Microcytosis Not Reportable Macrocytosis Not Reportable Spherocytes Not Reportable Pappenheimer Bodies Not Reportable Sickle Cells Not Reportable Target Cells Not Reportable Tear Drop Cells Not Reportable Ovalocytes Not Reportable Helmet Cells Not Reportable Guerra-[place] Bodies Not Reportable Pledger Rings Not Reportable Bent Cells Not Reportable Bite Cells Not Reportable Crenated Cell Not Reportable Elliptocytes Not Reportable Acanthocytes (Spur) Not Reportable Rouleaux Not Reportable Hemoglobin C Crystals Not Reportable Schistocytes Not Reportable Malaria parasites Not Reportable Mykel Bodies Not Reportable Hem Pathologist Commnt No Sodium 136 L (137-145) mmol/L Potassium 3.8 (3.6-5.0) mmol/L Chloride 102.7 (98-107) mmol/L Carbon Dioxide 24 (22-30) mmol/L Anion Gap 13 mmol/L BUN 13 (7-17) mg/dL Creatinine 0.7 (0.6-1.2) mg/dL Estimated GFR > 60 ml/min BUN/Creatinine Ratio 19 % Glucose 78 (65-100) mg/dL Calcium 9.2 (8.4-10.2) mg/dL Total Bilirubin 0.40 (0.1-1.2) mg/dL Direct Bilirubin < 0.2 (0-0.2) mg/dL Indirect Bilirubin 0.2 mg/dL AST 16 (5-40) units/L ALT < 5 L (7-56) units/L Alkaline Phosphatase 63 (35-129) units/L Total Protein 6.6 (6.3-8.2) g/dL Albumin 4.1 (3.9-5) g/dL Albumin/Globulin Ratio 1.6 % Lipase 26 (13-60) units/L Urine Color Yellow (Yellow) Urine Turbidity Slightly-cloudy (Clear) Urine pH 6.0 (5.0-7.0) Ur Specific [place] 1.012 (1.003-1.030) Urine Protein <15 mg/dl (Negative) mg/dL Urine Glucose (UA) Neg (Negative) mg/dL Urine Ketones Tr (Negative) mg/dL Urine Blood Neg (Negative) Urine Nitrite Neg (Negative) Urine Bilirubin Neg (Negative) Urine Urobilinogen < 2 (<2.0) mg/dL Ur Leukocyte Esterase Sm (Negative) Urine WBC (Auto) < 1.0 (0.0-6.0) /HPF Urine RBC (Auto) < 1.0 (0.0-6.0) /HPF U Epithel Cells (Auto) 4.0 (0-13.0) /HPF Vital Signs 07/22/22 23:18 Temperature 98.4 F Pulse Rate 71 Respiratory 18 Rate Blood Pressure 111/69 O2 Sat by Pulse 99 Oximetry Labs noted. Patient has a chronic leukopenia. White count being in the 3-4 range, UA noted. CT scan noted. Patient medicated with high Cosamin prior to my arrival. I then medicated her with Bentyl. Patient informed of lab and test findings. She is taking p.o. She is ambulatory. Nontoxic. Patient being discharged home with discharge plan of care including diet, activity, medications and follow-up. She verbalizes understanding of plan of care - Differential Diagnosis ro acute abd/uti Critical care attestation.: If time is entered above; I have spent that time in minutes in the direct care of this critically ill patient, excluding procedure time. ED Disposition Clinical Impression: Abdominal pain Disposition: 01 HOME / SELF CARE / HOMELESS Is pt being admited?: No Does the pt Need Aspirin: No Condition: Stable Instructions: Abdominal Pain, Adult, Abdominal Pain (ED) Additional Instructions: stay well-hydrated with water Follow-up with PCP and GI doctor as we discussed. Have given you referrals below. You are due for a colonoscopy given that its been many years. You may need an endoscopy. Your hemoglobin was normal today Diet as tolerated. Advance slowly to avoid GI upset Daily [id number] Pepcid 40 mg is recommended Bvui-and-dtonhyf Tylenol for pain. I would avoid Motrin or Tylenol given your prior history of anemia. Referrals: CATRINA TALLEY MD [Primary Care Provider] - 3-5 Days HEMALATHA COPELAND MD [Staff Physician] - 3-5 Days DESIREE WORRELL MD [Staff Physician] - 3-5 Days Forms: Work/School Release Form(ED) Time of Disposition: 09:52
[2022-07-23 10:13] VITALS: BP 145/88
== END 2022-07-23 10:11 | disposition home or self-care (01) ==
LOC: ED 23:15
DX: R10.12 Left upper quadrant pain (principal); R10.32 Left lower quadrant pain; K21.9 Gastro-esophageal reflux disease without esophagitis; Z79.899 Other long term (current) drug therapy; Z88.0 Allergy status to penicillin; Z88.2 Allergy status to sulfonamides; Z91.018 Allergy to other foods; Z88.8 Allergy status to other drugs, medicaments and biological substances
CPT/HCPCS: 36415; 74177; 80048; 80076; 81001; 83690; 85007; 85025; 99284; Q9967